=== PATIENT | female | born 1950 | race Caucasian/White ===

== ENCOUNTER 2017-09-21 19:58 | Emergency (ER) | payer MEDICARE, OTHER ==
[2017-09-21] MEDS ORDERED: Sodium Chloride 0.9% 1,000 ML IV ONE (20:14)
--- NOTE | 2017-09-21 20:14 | EDM.PDOC ---
ED HPI GENERAL MEDICAL PROBLEM - General Chief Complaint: Genitourinary Problem Stated Complaint: BOOLD ON URINE Time Seen by Provider: 09/21/17 20:12 - History of Present Illness INITIAL COMMENTS - FREE TEXT/NARRATIVE: HISTORY AND PHYSICAL: History of present illness: Patient is a 67-year-old female with history of bladder cancer who had a cystectomy with neobladder done years ago at [facility] and presents now with lower abdominal pain she's also had some blood clots in her urine and is a new event. She states she recently had influenza. She denies recent nausea vomiting fever chills trauma or other concerns Review of systems: As per history of present illness and below otherwise all systems reviewed and negative. Past medical history: As per history of present illness and as reviewed below otherwise noncontributory. Surgical history: As per history of present illness and as reviewed below otherwise noncontributory. Social history: No reported history of drug or alcohol abuse. Family history: As per history of present illness and as reviewed below otherwise noncontributory. Physical exam: HEENT: Atraumatic, normocephalic, pupils reactive, negative for conjunctival pallor or scleral icterus, mucous membranes moist, throat clear, neck supple, nontender, trachea midline. Lungs: Clear to auscultation, breath sounds equal bilaterally, chest nontender. Heart: S1S2, regular, negative for clicks, rubs, or JVD. Abdomen: Soft, nondistended, nontender. Negative for masses or hepatosplenomegaly. Negative for costovertebral tenderness. Pelvis: Stable nontender. Genitourinary: Deferred. Rectal: Deferred. Extremities: Atraumatic, negative for cords or calf pain. Neurovascular unremarkable. Neuro: Awake, alert, oriented. Cranial nerves II through XII unremarkable. Cerebellum unremarkable. Motor and sensory unremarkable throughout. Exam nonfocal. Diagnostics: CBC CMP UA urine culture CT abdomen and pelvis Therapeutics: Normal saline 1 L bolus Impression: #1 abdominal pain #2 history of bladder cancer with cystectomy Definitive disposition and diagnosis as appropriate pending reevaluation and review of above. hypogastric Pain Score (Numeric/FACES): 7 - Related Data Allergies Allergy/AdvReac Type Severity Reaction Status Date / Time No Known Allergies Allergy Verified 09/21/17 20:19 Home Meds: Home Meds . [No Known Home Meds] 09/21/17 [History] Past Medical History Respiratory History: Reports: Asthma Psychiatric History: Reports: Depression Oncologic (Cancer) History: Reports: Bladder - Past Surgical History Female Surgical History: Reports: Other (See Below) Other Female Surgeries/Procedures: bladder removal, maria eugenia-bladder Oncologic Surgical History: Reports: Other (See Below) Other Oncologic Surgeries/Procedures: bladder removal, maria eugenia bladder Social & Family History - Tobacco Use Smoking Status *Q: Never Smoker Second Hand Smoke Exposure: No - Recreational Drug Use Recreational Drug Use: No ED ROS GENERAL - Review of Systems Review Of Systems: ROS reveals no pertinent complaints other than HPI. ED EXAM, GENERAL - Physical Exam Exam: See Below (The dictation) Course - Vital Signs Last Recorded V/S: Last Vital Signs Temp 36.4 C 09/21/17 22:00 Pulse 83 09/21/17 22:00 Resp 18 09/21/17 22:00 BP 160/90 H 09/21/17 22:00 Pulse Ox 95 09/21/17 22:00 - Orders/Labs/Meds Orders: Active Orders 24 hr Category Date Time Status Abdomen Pelvis wo Cont [CT] Stat Exams 09/21/17 20:13 Taken CULTURE BLOOD [BC] Stat Lab 09/21/17 22:22 Received CULTURE BLOOD [BC] Stat Lab 09/21/17 22:36 Results CULTURE URINE [RM] Stat Lab 09/21/17 21:28 Received Blood Culture x2 Reflex Set [OM.PC] Stat Oth 09/21/17 22:14 Ordered Labs: Laboratory Tests 09/21/17 09/21/17 09/21/17 Range/Units 20:22 20:22 20:22 WBC 10.82 (4.0-11.0) K/uL RBC 3.94 L (4.30-5.90) M/uL Hgb 11.0 L (12.0-16.0) g/dL Hct 34.2 L (36.0-46.0) % MCV 86.8 (80.0-98.0) fL MCH 27.9 (27.0-32.0) pg MCHC 32.2 (31.0-37.0) g/dL RDW Std Deviation 46.4 (28.0-62.0) fl RDW Coeff of Soraida 15 (11.0-15.0) % Plt Count 497 H (150-400) K/uL MPV 9.50 (7.40-12.00) fL Add Manual Diff YES Neutrophils % (Manual) 79 (48.0-80.0) % Band Neutrophils % 4 % Lymphocytes % (Manual) 11 L (16.0-40.0) % Monocytes % (Manual) 6 (0.0-15.0) % Nucleated RBC % 0.0 /100WBC Absolute Seg Neuts 8.5 H (1.4-5.7) Band Neutrophils # 0.4 Lymphocytes # (Manual) 1.2 (0.6-2.4) Monocytes # (Manual) 0.6 (0.0-0.8) Nucleated RBCs # 0 K/uL INR 1.02 Sodium 136 (136-146) mmol/L Potassium 4.9 (3.5-5.1) mmol/L Chloride 109 (98-110) mmol/L Carbon Dioxide 15 L (21-31) mmol/L BUN 61 H (6.0-23.0) mg/dL Creatinine 2.5 H (0.6-1.5) mg/dL Est Cr Clr Drug Dosing TNP Estimated GFR (MDRD) 19.3 ml/min Glucose 114 H (60-110) mg/dL Calcium 8.9 (8.8-10.8) mg/dL Total Bilirubin 0.2 (0.1-1.5) mg/dL AST 10 (5-40) IU/L ALT 23 (8-54) IU/L Alkaline Phosphatase 102 (40-150) Total Protein 7.3 (6.0-8.0) g/dL Albumin 3.9 (3.4-4.8) g/dL Globulin 3.4 (2.0-3.5) g/dL Albumin/Globulin Ratio 1.1 L (1.3-2.8) Urine Color Urine Appearance Urine pH (5.0-8.0) Ur Specific [place] (1.001-1.035) Urine Protein (NEGATIVE) mg/dL Urine Glucose (UA) (NEGATIVE) mg/dL Urine Ketones (NEGATIVE) mg/dL Urine Occult Blood (NEGATIVE) Urine Nitrite (NEGATIVE) Urine Bilirubin (NEGATIVE) Urine Urobilinogen (<2.0) EU/dL Ur Leukocyte Esterase (NEGATIVE) Urine RBC (0-2/HPF) Urine WBC (0-5/HPF) Ur Epithelial Cells (NONE-FEW) Urine Bacteria (NEGATIVE) 09/21/17 Range/Units 21:25 WBC (4.0-11.0) K/uL RBC (4.30-5.90) M/uL Hgb (12.0-16.0) g/dL Hct (36.0-46.0) % MCV (80.0-98.0) fL MCH (27.0-32.0) pg MCHC (31.0-37.0) g/dL RDW Std Deviation (28.0-62.0) fl RDW Coeff of Soraida (11.0-15.0) % Plt Count (150-400) K/uL MPV (7.40-12.00) fL Add Manual Diff Neutrophils % (Manual) (48.0-80.0) % Band Neutrophils % % Lymphocytes % (Manual) (16.0-40.0) % Monocytes % (Manual) (0.0-15.0) % Nucleated RBC % /100WBC Absolute Seg Neuts (1.4-5.7) Band Neutrophils # Lymphocytes # (Manual) (0.6-2.4) Monocytes # (Manual) (0.0-0.8) Nucleated RBCs # K/uL INR Sodium (136-146) mmol/L Potassium (3.5-5.1) mmol/L Chloride (98-110) mmol/L Carbon Dioxide (21-31) mmol/L BUN (6.0-23.0) mg/dL Creatinine (0.6-1.5) mg/dL Est Cr Clr Drug Dosing Estimated GFR (MDRD) ml/min Glucose (60-110) mg/dL Calcium (8.8-10.8) mg/dL Total Bilirubin (0.1-1.5) mg/dL AST (5-40) IU/L ALT (8-54) IU/L Alkaline Phosphatase (40-150) Total Protein (6.0-8.0) g/dL Albumin (3.4-4.8) g/dL Globulin (2.0-3.5) g/dL Albumin/Globulin Ratio (1.3-2.8) Urine Color RED Urine Appearance BLOODY Urine pH 6.5 (5.0-8.0) Ur Specific [place] 1.015 (1.001-1.035) Urine Protein >=300 (NEGATIVE) mg/dL Urine Glucose (UA) NEGATIVE (NEGATIVE) mg/dL Urine Ketones NEGATIVE (NEGATIVE) mg/dL Urine Occult Blood LARGE H (NEGATIVE) Urine Nitrite NEGATIVE (NEGATIVE) Urine Bilirubin NEGATIVE (NEGATIVE) Urine Urobilinogen 0.2 (<2.0) EU/dL Ur Leukocyte Esterase MODERATE (NEGATIVE) Urine RBC TOO NUMBEROUS TO CT H (0-2/HPF) Urine WBC 8-12 (0-5/HPF) Ur Epithelial Cells RARE (NONE-FEW) Urine Bacteria FEW (NEGATIVE) Meds: Medications Discontinued Medications Generic Name Dose Route Start Last Admin Trade Name Freq PRN Reason Stop Dose Admin Hydromorphone HCl 1 mg 09/21/17 22:09 09/21/17 22:19 Dilaudid IM 09/21/17 22:10 1 mg ONETIME ONE Administration Hydromorphone HCl 1 mg 09/21/17 22:54 Dilaudid IVPUSH 09/21/17 22:55 ONETIME ONE Sodium Chloride 1,000 mls @ 999 mls/hr 09/21/17 20:14 09/21/17 21:37 Normal Saline IV 09/21/17 21:14 999 mls/hr STAT ONE Administration Ceftriaxone Sodium/Dextrose 1 50 mls @ 100 mls/hr 09/21/17 22:13 09/21/17 22: 27 gm/ Premix IV 09/21/17 22:42 100 mls/hr ONETIME ONE Administration Ondansetron HCl 4 mg 09/21/17 22:09 09/21/17 22:19 Zofran IVPUSH 09/21/17 22:10 4 mg ONETIME ONE Administration Departure - Departure Time of Disposition: 23:31 Disposition: DC/Tfer to Acute Hospital 02 Condition: Good Clinical Impression: Obstructive uropathy - Discharge Information Referrals: Cruz Lee MD [Primary Care Provider] - Forms: ED Department Discharge - My Orders Last 24 Hours: My Active Orders 09/21/17 20:13 Abdomen Pelvis wo Cont [CT] Stat 09/21/17 21:28 CULTURE URINE [RM] Stat 09/21/17 22:14 Blood Culture x2 Reflex Set [OM.PC] Stat 09/21/17 22:22 CULTURE BLOOD [BC] Stat 09/21/17 22:36 CULTURE BLOOD [BC] Stat - Assessment/Plan Last 24 Hours: My Active Orders 09/21/17 20:13 Abdomen Pelvis wo Cont [CT] Stat 09/21/17 21:28 CULTURE URINE [RM] Stat 09/21/17 22:14 Blood Culture x2 Reflex Set [OM.PC] Stat 09/21/17 22:22 CULTURE BLOOD [BC] Stat 09/21/17 22:36 CULTURE BLOOD [BC] Stat
[2017-09-21 20:52] LABS: CHLORIDE,CL 109 mmol/L (98-110); SODIUM,NA 136 mmol/L (136-146)
[2017-09-21] MEDS ORDERED: Ondansetron 4 MG/2 ML SDV IVPUSH ONE (22:09)
[2017-09-21] MEDS ORDERED: HYDROmorphone 1 MG/ML Syringe IM ONE (22:09)
[2017-09-21] MEDS ORDERED: cefTRIAXone 1 GM in Premix Bag 1 BAG IV ONE (22:13)
[2017-09-21] MEDS ORDERED: HYDROmorphone 2 MG/ML Syringe IVPUSH ONE (22:54)
[2017-09-21] MEDS ORDERED: HYDROmorphone 1 MG/ML Syringe ONE (23:37)
--- NOTE | 2017-09-22 13:58 | CT ---
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 Site : 1950 Study: CT Abdomen/Pelvis [id number]/25/2018 8:55:25 PM Ordering Physician: Arden Oviedo Final Report: INDICATION: Abdominal pain. Diarrhea. Vaginal bleeding at time of scan. TECHNIQUE: CT abdomen and pelvis performed without IV contrast. FINDINGS: Mild scoliosis with degenerative changes in the spine. Small nodular density left lower lobe laterally. Minimal linear atelectasis or scarring in the lungs. Degenerative disc disease L3 and L4 interspaces. Small to moderate-size cysts in the liver. Marked dilatation of both intrarenal collecting systems and renal pelves with mild to marked dilatation of both ureters down to their insertion on a large distended lobulated pelvic and lower abdominal neobladder. Findings could be related to chronic obstruction and/or vesicoureteral reflux or a combination of both etiologies. If this is related to chronic obstruction it is likely related to stenoses at the insertion of the ureters on the neobladder. Minimal stranding about the neobladder which could suggest inflammation. Foci of moderate high density within the lumen of the neobladder inferiorly suggestive of hematoma/hemorrhagic products. Etiology of this is uncertain. Both kidney both kidneys are atrophic and have moderately prominent areas of diffuse cortical thinning and scarring likely related to chronic vesicoureteral reflux, infection, or other insult. The ureters are very tortuous. CT with IV contrast including delayed excretory views could evaluate further for etiology for the presumed hematoma and hemorrhagic products in the neobladder. Tiny nodule posterior to the right hepatic lobe. [place] bladder surgically absent. Surgical clips in the pelvis. Small lymph nodes in the mid and lower pelvis bilaterally nonspecific. Uterus appears absent. Postsurgical changes involving the right pelvic bowel loops. Remainder negative. IMPRESSION: 1. Large prominently distended neobladder which contains foci of ill-defined moderate amounts of high density inferiorly which are likely related to hemorrhagic products. Etiology of the hemorrhagic products uncertain. Mild soft tissue stranding about the neobladder likely related to mild acute inflammation. 2. Marked dilatation of both intrarenal collecting systems and renal pelves and mild to prominent dilatation of both ureters which are tortuous down to the insertion of the ureters on the neobladder. Findings could be related to obstruction due to stenoses at the ureter-neobladder insertion or could be related to vesicoureteral reflux. Combination of both etiologies could be present. 3. Atrophy and moderately prominent scarring and cortical thinning both kidneys consistent with chronic insult as described above. 4. Uterus surgically absent. 5. No CT abnormality identified explain diarrhea. 6. Not mentioned above is a moderate size stone in a contracted gallbladder. Other findings as above. Please note that all CT scans at this facility use dose modulation, iterative reconstruction, and/or weight-based dosing when appropriate to reduce radiation dose to as low as reasonably achievable. Dictated by Manpreet Roper MD @ Sep 21 2017 9:21PM (Electronic Signature) Report Signed by Proxy. BYROND
== END 2017-09-21 23:45 ==
LOC: MW.ED 19:58
DX: N13.9 Obstructive and reflux uropathy, unspecified (principal); Z85.51 Personal history of malignant neoplasm of bladder; Z90.6 Acquired absence of other parts of urinary tract
CPT/HCPCS: 36415; 74176; 80053; 81001; 85025; 85610; 87040; 87086; 96361; 96365; 96375; 99285; J0696; J1170; J2405; J7040; 99283

== ENCOUNTER 2017-09-25 17:36 | Emergency (ER) | payer MEDICARE, OTHER ==
--- NOTE | 2017-09-25 20:05 | EDM.PDOC ---
ED HPI GENERAL MEDICAL PROBLEM - General Chief Complaint: Genitourinary Problem Stated Complaint: UNK Time Seen by Provider: 09/25/17 18:50 Source of Information: Reports: Patient History Limitations: Reports: No Limitations - History of Present Illness INITIAL COMMENTS - FREE TEXT/NARRATIVE: HISTORY AND PHYSICAL: History of present illness: [Patient comes to the ER for hematuria. She has a complicated history including bladder CA w/ cystectomy and neobladder 9 years ago at [facility]. She was flown to [facility] on 09/21 from this ER due to passing blood clots. She was discharged from [facility] 09/23 and had been slowly driving home since then. She had a salas catheter placed, but was DC'd prior to discharge, with instructions given for intermittent catheterization throughout the day, and salas cath at . Patient and her have stopped at various rest stops along the way home to perform intermittent catheterization. She requires her husbands assistance with this as she has difficulty locating her urethra with catheter. This morning she noticed dark blood in her Salas bag, so she stopped at the [facility] and had her Salas catheter flushed and placed for her. ER staff were in contact with Dr. Levi at [facility] who recommended the patient discontinue IC and keep the Salas in until she can follow-up with a local urologist. Since she left the [facility] she is experiencing episodes of chills and low back pain. Dr. Levi recommends that she have a UA and culture, and was instructed to present to ER for this. She has not had fever, but admits to chills today. No chest pain, shortness of breath, difficulty breathing. No abdominal pain, nausea, vomiting. Normal bowel movements. Bright red blood and clots has been in her Salas tubing and bag. Does not take any prescription medications. Has not been on any antibiotics since she was hospitalized at [facility]. ] Review of systems: As per history of present illness and below otherwise all systems reviewed and negative. Past medical history: As per history of present illness and as reviewed below otherwise noncontributory. Surgical history: As per history of present illness and as reviewed below otherwise noncontributory. Social history: No reported history of drug or alcohol abuse. Family history: As per history of present illness and as reviewed below otherwise noncontributory. Physical exam: HEENT: Atraumatic, normocephalic. Lungs: Clear to auscultation, breath sounds equal bilaterally. Heart: S1S2, regular rate and rhythm. Abdomen: Soft, nondistended, nontender. Negative for costovertebral tenderness. Pelvis: Stable nontender. Genitourinary: Deferred. Rectal: Deferred. Extremities: Atraumatic, no cyanosis or edema to feet or lower legs. Neurovascular unremarkable. Neuro: Awake, alert, oriented. Motor and sensory unremarkable throughout. Exam nonfocal. Diagnostics: [UA, urine C&S] Impression: [UTI hematuria] Plan: [UA shows red bloody urine, 250 glucose, + nitrite, large amount of blood, 40 ketones, 0-1 WBC, and large leukocyte esterase. Will start Macrobid twice a day for 10 days. Push fluids. Remain in close contact with [facility]. A copy of this note and all labs should be sent to Dr. Levi at [phone].Urine culture is pending. ] Definitive disposition and diagnosis as appropriate pending reevaluation and review of above. - Related Data Allergies Allergy/AdvReac Type Severity Reaction Status Date / Time No Known Allergies Allergy Verified 09/21/17 20:19 Home Meds: Home Meds . [No Known Home Meds] 09/21/17 [History] Past Medical History Respiratory History: Reports: Asthma Genitourinary History: Reports: Other (See Below) Other Genitourinary History: Hematuria Psychiatric History: Reports: Depression Oncologic (Cancer) History: Reports: Bladder - Infectious Disease History Infectious Disease History: Reports: None - Past Surgical History HEENT Surgical History: Reports: Oral Surgery, Tonsillectomy GI Surgical History: Reports: Appendectomy Female Surgical History: Reports: Other (See Below) Other Female Surgeries/Procedures: bladder removal, maria eugenia-bladder Oncologic Surgical History: Reports: Other (See Below) Other Oncologic Surgeries/Procedures: bladder removal, maria eugenia bladder Social & Family History - Family History Family Medical History: Noncontributory - Tobacco Use Smoking Status *Q: Never Smoker Second Hand Smoke Exposure: No - Recreational Drug Use Recreational Drug Use: No ED ROS GENERAL - Review of Systems Review Of Systems: ROS reveals no pertinent complaints other than HPI. ED EXAM, RENAL/ - Physical Exam Exam: See Below Course - Vital Signs Last Recorded V/S: Last Vital Signs Temp 97.7 F 09/25/17 20:20 Pulse 96 09/25/17 20:20 Resp 18 09/25/17 20:20 BP 132/83 09/25/17 20:20 Pulse Ox 98 09/25/17 20:20 - Orders/Labs/Meds Orders: Active Orders 24 hr Category Date Time Status CULTURE URINE [RM] Stat Lab 09/25/17 19:10 Received Labs: Laboratory Tests 09/25/17 Range/Units 19:10 Urine Color RED Urine Appearance BLOODY Urine pH 7.0 (5.0-8.0) Ur Specific [place] <= 1.005 (1.001-1.035) Urine Protein >=300 (NEGATIVE) mg/dL Urine Glucose (UA) 250 H (NEGATIVE) mg/dL Urine Ketones 40 H (NEGATIVE) mg/dL Urine Occult Blood LARGE H (NEGATIVE) Urine Nitrite POSITIVE H (NEGATIVE) Urine Bilirubin LARGE H (NEGATIVE) Urine Ictotest NEGATIVE Urine Urobilinogen >=8.0 H (<2.0) EU/dL Ur Leukocyte Esterase LARGE (NEGATIVE) Urine RBC TOO NUMEROUS TO CT (0-2/HPF) Urine WBC 0-1 (0-5/HPF) Ur Epithelial Cells RARE (NONE-FEW) Urine Bacteria MODERATE (NEGATIVE) Departure - Departure Time of Disposition: 20:05 Disposition: Home, Self-Care 01 Condition: Good Clinical Impression: UTI, Urinary tract infectious disease - Discharge Information Instructions: Urinary Tract Infection, Adult Referrals: Cruz Lee MD [Primary Care Provider] - Forms: ED Department Discharge Additional Instructions: The following information is given to patients seen in the emergency department who are being discharged to home. This information is to outline your options for follow-up care. We provide all patients seen in our emergency department with a follow-up referral. The need for follow-up, as well as the timing and circumstances, are variable depending upon the specifics of your emergency department visit. If you don't have a primary care physician on staff, we will provide you with a referral. We always advise you to contact your personal physician following an emergency department visit to inform them of the circumstance of the visit and for follow-up with them and/or the need for any referrals to a consulting specialist. The emergency department will also refer you to a specialist when appropriate. This referral assures that you have the opportunity for follow-up care with a specialist. All of these measure are taken in an effort to provide you with optimal care, which includes your follow-up. Under all circumstances we always encourage you to contact your private physician who remains a resource for coordinating your care. When calling for follow-up care, please make the office aware that this follow-up is from your recent emergency room visit. If for any reason you are refused follow-up, please contact the [facility] emergency department at and asked to speak to the emergency department charge nurse. [facility] [address] [place] [id number] Follow-up with your primary care provider at the clinic listed above in 48-[address] Levi of today's findings tomorrow. Take antibiotics as prescribed. Return to ER as needed as discussed. - My Orders Last 24 Hours: My Active Orders 09/25/17 19:10 CULTURE URINE [RM] Stat - Assessment/Plan Last 24 Hours: My Active Orders 09/25/17 19:10 CULTURE URINE [RM] Stat
== END 2017-09-25 20:20 | disposition home or self-care (01) ==
LOC: MW.ED 17:36
DX: N39.0 Urinary tract infection, site not specified (principal)
CPT/HCPCS: 81001; 87086; 99283

== ENCOUNTER 2017-10-05 21:23 | Inpatient (IN) | payer MEDICARE, OTHER ==
--- NOTE | 2017-10-05 21:34 | EDM.PDOC ---
ED HPI GENERAL MEDICAL PROBLEM - General Stated Complaint: CRAMPING Time Seen by Provider: 10/05/17 21:55 - History of Present Illness INITIAL COMMENTS - FREE TEXT/NARRATIVE: HISTORY AND PHYSICAL: History of present illness: The patient is a 67-year-old female who was had a recent complicated history with hematuria and urinary problems. She had bladder cancer with cystectomy and neobladder formation 9 years ago at the [facility] and had presented to this emergency department on September 21 due to hematuria and was found to have some kind of urinary obstruction. She was flown to [facility] and discharged there after 2 days. She says that when she was at the [facility] they did CBI for the hematuria and then when she was discharged she did not have a Fritz catheter. She had had a Fritz placed while she was in the hospital there but it was removed prior to discharge and she was doing intermittent catheterization. On the way home from [facility] they were driving and they stopped at [facility] where they had to have a Fritz replaced because of urinary retention. When she was seen here in the emergency department on a follow-up visit on September 25 when she was also complaining of hematuria and her doctor at the [facility] had instructed her to come in for a UA and urine culture. She has a Fritz in place on that visit . On that visit she had bloody urine which was positive nitrite 0- 1 WBCs and large leukocyte Estrace. Antibiotics were started, Macrobid, and a urine culture was sent which revealed a negative results per my review of the medical record. She followed up in our primary care clinic with Dr. Robles several days ago and had the Fritz removed. She was having some issues with complaints of generalized weakness and feeling rundown and her doctor at the [facility] recommend that she start doing many self catheters and doing bladder irrigation. They had been doing that and they felt that they were irrigating with a certain amount and not getting it all back. They have been in contact with her doctor at the [facility] over the last several days. The symptoms she is having today of generalized weakness malaise started on and they started the bladder irrigation at that time. She has not had a fever but has felt sweaty and she has had intermittent nausea but no vomiting until today in the ED. She feels like her abdomen is bloated. Her doctor at [facility] also thought that she might be constipated and recommend that she take some laxatives which she did and she had multiple stools today which were initially very hard and then more soft. She contacted Dr. peterson and they thought she still might be constipated which is causing her lower abdominal pain radiating to her back. They advised her to come here due to her propensity to bladder infections for evaluation. The patient has not been passing out or blacking out and has no chest pain shortness of breath. Both she and her say that she looks very distended and they are concerned about urinary retention as well as the constipation as the cause of these pains. She describes a lower abdominal pain is cramping and does not localize. Review of systems: As per history of present illness and below otherwise all systems reviewed and negative. Past medical history: As per history of present illness and as reviewed below otherwise noncontributory. Surgical history: As per history of present illness and as reviewed below otherwise noncontributory. Social history: No reported history of drug or alcohol abuse. Family history: As per history of present illness and as reviewed below otherwise noncontributory. Physical exam: General: Well-developed well-nourished female who is nontoxic and vital signs are reviewed by me. She is able to move easily in the ED and has some slight diaphoresis. HEENT: Atraumatic, normocephalic, pupils reactive, negative for conjunctival pallor or scleral icterus, mucous membranes moist, throat clear, neck supple, nontender, trachea midline. Lungs: Clear to auscultation, breath sounds equal bilaterally, chest nontender. Heart: S1S2, regular rhythm slightly tachycardic rate of my evaluation Abdomen: Soft, her entire lower abdomen looks very distended and it is diffusely tender and there are hyperactive bowel sounds . There is no rebound or guarding. Negative for masses or hepatosplenomegaly. Negative for costovertebral tenderness. Pelvis: Stable nontender. Genitourinary: Deferred. Rectal: Deferred. Extremities: Atraumatic, negative for cords or calf pain. Neurovascular unremarkable. Neuro: Awake, alert, oriented. Cranial nerves II through XII unremarkable. Cerebellum unremarkable. Motor and sensory unremarkable throughout. Exam nonfocal. Diagnostics: UA urine culture CBC CMP lactic acid CT scan of the abdomen and pelvis We will place a catheter for urine output Therapeutics: IV, IV fluids, Toradol Zofran NG tube As the nurse was performing duties, the patient had a large volume of emesis 600 mL which was not black or bloody and looked like food products. The patient says she has not had anything to eat since 1 PM which was a sandwich. Patient says that she feels significantly improved after the vomiting. The Fritz has only put out 400 mL of urine. 0040: Case was discussed with Dr. Perry who is aware of this complicated case and agrees to observe with bowel rest and NG tube and the patient and are also comfortable with this care plan. She says she feels much improved after vomiting and the pain meds and now only has some left lower quadrant pain Impression: Small bowel obstruction with complicated surgical history Definitive disposition and diagnosis as appropriate pending reevaluation and review of above. Middle Abdomen Pain Score (Numeric/FACES): 5 - Related Data Allergies Allergy/AdvReac Type Severity Reaction Status Date / Time No Known Allergies Allergy Verified 10/05/17 21:56 Home Meds: Home Meds . [No Known Home Meds] 09/21/17 [History] Past Medical History Respiratory History: Reports: Asthma Genitourinary History: Reports: Other (See Below) Other Genitourinary History: Hematuria Psychiatric History: Reports: Depression Oncologic (Cancer) History: Reports: Bladder - Infectious Disease History Infectious Disease History: Reports: None - Past Surgical History HEENT Surgical History: Reports: Oral Surgery, Tonsillectomy GI Surgical History: Reports: Appendectomy Female Surgical History: Reports: Other (See Below) Other Female Surgeries/Procedures: bladder removal, maria eugenia-bladder Oncologic Surgical History: Reports: Other (See Below) Other Oncologic Surgeries/Procedures: bladder removal, maria eugenia bladder Social & Family History - Family History Family Medical History: Noncontributory - Tobacco Use Smoking Status *Q: Never Smoker Second Hand Smoke Exposure: No - Recreational Drug Use Recreational Drug Use: No ED ROS GENERAL - Review of Systems Review Of Systems: ROS reveals no pertinent complaints other than HPI. ED EXAM, GENERAL - Physical Exam Exam: See Below (See dictation) Course - Vital Signs Last Recorded V/S: Last Vital Signs Temp 36.7 C 10/05/17 21:45 Pulse 69 10/06/17 00:15 Resp 17 10/06/17 00:15 BP 130/61 10/06/17 00:15 Pulse Ox 96 10/06/17 00:15 - Orders/Labs/Meds Orders: Active Orders 24 hr Category Date Time Status Abdomen Pelvis wo Cont [CT] Stat Exams 10/05/17 22:31 Taken CULTURE URINE [RM] Stat Lab 10/05/17 22:50 Received Sodium Chloride 0.9% [Saline Flush] Med 10/05/17 22:06 Active 10 ml FLUSH ASDIRECTED PRN Sodium Chloride 0.9% [Saline Flush] Med 10/05/17 22:06 Active 2.5 ml FLUSH ASDIRECTED PRN Saline Lock Insert [OM.PC] Stat Oth 10/05/17 22:05 Ordered Medication Orders Sodium Chloride (Saline Flush) 10 ml FLUSH ASDIRECTED PRN PRN Reason: Keep Vein Open Last Admin: 10/05/17 22:29 Dose: 10 ml Sodium Chloride (Saline Flush) 2.5 ml FLUSH ASDIRECTED PRN PRN Reason: Keep Vein Open Last Admin: 10/05/17 22:31 Dose: 2.5 ml Labs: Laboratory Tests 10/05/17 10/05/17 10/05/17 Range/Units 22:32 22:32 22:32 WBC 14.10 H (4.0-11.0) K/uL RBC 3.75 L (4.30-5.90) M/uL Hgb 10.4 L (12.0-16.0) g/dL Hct 33.8 L (36.0-46.0) % MCV 90.1 (80.0-98.0) fL MCH 27.7 (27.0-32.0) pg MCHC 30.8 L (31.0-37.0) g/dL RDW Std Deviation 54.7 (28.0-62.0) fl RDW Coeff of Soraida 17 H (11.0-15.0) % Plt Count 739 H (150-400) K/uL MPV 9.80 (7.40-12.00) fL Neut % (Auto) 75.1 (48.0-80.0) % Lymph % (Auto) 15.4 L (16.0-40.0) % [place] % (Auto) 7.9 (0.0-15.0) % Eos % (Auto) 1.4 (0.0-7.0) % Baso % (Auto) 0.2 (0.0-1.5) % Neut # (Auto) 10.6 H (1.4-5.7) K/uL Lymph # (Auto) 2.2 (0.6-2.4) K/uL [place] # (Auto) 1.1 H (0.0-0.8) K/uL Eos # (Auto) 0.2 (0.0-0.7) K/uL Baso # (Auto) 0.0 (0.0-0.1) K/uL Nucleated RBC % 0.0 /100WBC Nucleated RBCs # 0 K/uL Lactate 1.9 (0.20-2.00) mmol/L Sodium 138 (136-145) mmol/L Potassium 4.4 (3.5-5.1) mmol/L Chloride 102 (98-107) mmol/L Carbon Dioxide 21.4 (21.0-32.0) mmol/L BUN 29 H (7.0-18.0) mg/dL Creatinine 1.8 H (0.6-1.0) mg/dL Est Cr Clr Drug Dosing 31.43 mL/min Estimated GFR (MDRD) 28.2 ml/min Glucose 139 H (74-106) mg/dL Calcium 9.1 (8.5-10.1) mg/dL Total Bilirubin 0.2 (0.2-1.0) mg/dL AST 15 (15-37) IU/L ALT 25 (14-63) IU/L Alkaline Phosphatase 96 (46-116) U/L Total Protein 7.8 (6.4-8.2) g/dL Albumin 3.8 (3.4-5.0) g/dL Globulin 4.0 H (2.0-3.5) g/dL Albumin/Globulin Ratio 1.0 L (1.3-2.8) Urine Color Urine Appearance Urine pH (5.0-8.0) Ur Specific [place] (1.001-1.035) Urine Protein (NEGATIVE) mg/dL Urine Glucose (UA) (NEGATIVE) mg/dL Urine Ketones (NEGATIVE) mg/dL Urine Occult Blood (NEGATIVE) Urine Nitrite (NEGATIVE) Urine Bilirubin (NEGATIVE) Urine Urobilinogen (<2.0) EU/dL Ur Leukocyte Esterase (NEGATIVE) Urine RBC (0-2/HPF) Urine WBC (0-5/HPF) Ur Epithelial Cells (NONE-FEW) Urine Bacteria (NEGATIVE) Urine Mucus (NONE-MOD) 10/05/17 Range/Units 22:50 WBC (4.0-11.0) K/uL RBC (4.30-5.90) M/uL Hgb (12.0-16.0) g/dL Hct (36.0-46.0) % MCV (80.0-98.0) fL MCH (27.0-32.0) pg MCHC (31.0-37.0) g/dL RDW Std Deviation (28.0-62.0) fl RDW Coeff of Soraida (11.0-15.0) % Plt Count (150-400) K/uL MPV (7.40-12.00) fL Neut % (Auto) (48.0-80.0) % Lymph % (Auto) (16.0-40.0) % [place] % (Auto) (0.0-15.0) % Eos % (Auto) (0.0-7.0) % Baso % (Auto) (0.0-1.5) % Neut # (Auto) (1.4-5.7) K/uL Lymph # (Auto) (0.6-2.4) K/uL [place] # (Auto) (0.0-0.8) K/uL Eos # (Auto) (0.0-0.7) K/uL Baso # (Auto) (0.0-0.1) K/uL Nucleated RBC % /100WBC Nucleated RBCs # K/uL Lactate (0.20-2.00) mmol/L Sodium (136-145) mmol/L Potassium (3.5-5.1) mmol/L Chloride (98-107) mmol/L Carbon Dioxide (21.0-32.0) mmol/L BUN (7.0-18.0) mg/dL Creatinine (0.6-1.0) mg/dL Est Cr Clr Drug Dosing mL/min Estimated GFR (MDRD) ml/min Glucose (74-106) mg/dL Calcium (8.5-10.1) mg/dL Total Bilirubin (0.2-1.0) mg/dL AST (15-37) IU/L ALT (14-63) IU/L Alkaline Phosphatase (46-116) U/L Total Protein (6.4-8.2) g/dL Albumin (3.4-5.0) g/dL Globulin (2.0-3.5) g/dL Albumin/Globulin Ratio (1.3-2.8) Urine Color YELLOW Urine Appearance CLEAR Urine pH 7.0 (5.0-8.0) Ur Specific [place] 1.010 (1.001-1.035) Urine Protein NEGATIVE (NEGATIVE) mg/dL Urine Glucose (UA) NEGATIVE (NEGATIVE) mg/dL Urine Ketones NEGATIVE (NEGATIVE) mg/dL Urine Occult Blood SMALL H (NEGATIVE) Urine Nitrite NEGATIVE (NEGATIVE) Urine Bilirubin NEGATIVE (NEGATIVE) Urine Urobilinogen 0.2 (<2.0) EU/dL Ur Leukocyte Esterase SMALL (NEGATIVE) Urine RBC 2-4 (0-2/HPF) Urine WBC 4-12 (0-5/HPF) Ur Epithelial Cells OCCASIONAL (NONE-FEW) Urine Bacteria FEW (NEGATIVE) Urine Mucus RARE (NONE-MOD) Meds: Medications Generic Name Dose Route Start Last Admin Trade Name Freq PRN Reason Stop Dose Admin Sodium Chloride 10 ml 10/05/17 22:06 10/05/17 22:29 Saline Flush FLUSH 10 ml ASDIRECTED PRN Administration Keep Vein Open Sodium Chloride 2.5 ml 10/05/17 22:06 10/05/17 22:31 Saline Flush FLUSH 2.5 ml ASDIRECTED PRN Administration Keep Vein Open Discontinued Medications Generic Name Dose Route Start Last Admin Trade Name Freq PRN Reason Stop Dose Admin Sodium Chloride 1,000 mls @ 999 mls/hr 10/05/17 22:27 10/05/17 22:28 Normal Saline IV 10/05/17 23:27 999 mls/hr STAT ONE Administration Ketorolac Tromethamine 30 mg 10/05/17 22:06 10/05/17 22:28 Toradol IVPUSH 10/05/17 22:07 30 mg ONETIME ONE Administration Ondansetron HCl 4 mg 10/05/17 22:26 10/05/17 22:31 Zofran IVPUSH 10/05/17 22:27 4 mg ONETIME ONE Administration Departure - Departure Time of Disposition: 00:49 Disposition: Refer to Observation Condition: Good Clinical Impression: Small bowel obstruction - Discharge Information Referrals: PCP,Unknown [Primary Care Provider] - - My Orders Last 24 Hours: My Active Orders 10/05/17 22:05 Saline Lock Insert [OM.PC] Stat 10/05/17 22:06 Sodium Chloride 0.9% [Saline Flush] 10 ml FLUSH ASDIRECTED PRN Sodium Chloride 0.9% [Saline Flush] 2.5 ml FLUSH ASDIRECTED PRN 10/05/17 22:31 Abdomen Pelvis wo Cont [CT] Stat 10/05/17 22:50 CULTURE URINE [RM] Stat - Assessment/Plan Last 24 Hours: My Active Orders 10/05/17 22:05 Saline Lock Insert [OM.PC] Stat 10/05/17 22:06 Sodium Chloride 0.9% [Saline Flush] 10 ml FLUSH ASDIRECTED PRN Sodium Chloride 0.9% [Saline Flush] 2.5 ml FLUSH ASDIRECTED PRN 10/05/17 22:31 Abdomen Pelvis wo Cont [CT] Stat 10/05/17 22:50 CULTURE URINE [RM] Stat
[2017-10-05] MEDS ORDERED: Sodium Chloride 0.9% 2.5 ML Syringe FLUSH PRN (22:06)
[2017-10-05] MEDS ORDERED: Ketorolac 30 MG/ML SDV IVPUSH ONE (22:06)
[2017-10-05] MEDS ORDERED: Sodium Chloride 0.9% 10 ML Syringe FLUSH PRN (22:06)
[2017-10-05] MEDS ORDERED: Ondansetron 4 MG/2 ML SDV IVPUSH ONE (22:26)
[2017-10-05] MEDS ORDERED: Sodium Chloride 0.9% 1,000 ML IV ONE (22:27)
[2017-10-06] MEDS ORDERED: Dextrose 5%-0.45% NaCl 1,000 ML IV SCH (01:00)
[2017-10-06] MEDS ORDERED: Benzocaine 20% Topical Spray UD MUCMEM ONE (01:09)
[2017-10-06] MEDS ORDERED: Ondansetron 4 MG/2 ML SDV IVPUSH PRN (02:48)
[2017-10-06] MEDS: Piperacillin/Tazobactam 3.375 GM in Sodium Chloride 0.9% 50 ML IV SCH ×4 (03:17→21:13)
[2017-10-06] MEDS: NS + KCl 20mEq/L 1,000 ML IV SCH ×2 (03:18→11:57)
[2017-10-06] MEDS: Morphine 4 MG/ML Syringe IVPUSH PRN ×3 (05:41→16:00)
--- NOTE | 2017-10-06 09:25 | PCM.SN ---
- Free Text/Narrative Note: pt seen, chart reviewed; cx dictated, [id number]; agree ngt decompression, but has to check position and make it work, only saliva coming out, need readjust position, and recheck position ; protonix, and npo, serial abd exam and kub in tomorrow morning; will follow pt w you; keep potassium above 4 to avoid chemical ileus
--- NOTE | 2017-10-06 10:41 | PCM.HP ---
H&P History of Present Illness - General Date of Service: 10/06/17 Admit Problem/Dx: Small bowel obstruction. Source of Information: Patient History Limitations: Reports: No Limitations - History of Present Illness Initial Comments - Free Text/Narative: This 67 year old female with pmh of cystectomy with subsequent neopbladder completed in [facility] 2008 presented to the ED with concerns of worsening abdominal pain and distension. She was transferred to [facility] due to hematuria and clotting. She was found to have UTI and treated with macrobid. She reports she has not felt right since driving back from [place]. She has been in constant contact with Dr Ortez at [facility] and they suggested she be seen due to worsening pain. She was instructed to take laxatives due to concerns of constipation. She reports she took some yesterday and has intially very small hard bowel movements then they became loose. She ate around 1 pm, but felt very bloated and distended with pain throughout her abdomen. Nothing made the pain better or worse per se. She reports no black or bloody BMs. She did have 1 large emesis of food particles while in the ED with relief of some abdominal pain. She denies fevers at home. A salas remains in from ED, no recent blood or clots noted. In the ED leukocytosis at 14,000, hgb 10.4, BUN 29, Cr 1.8, UA showed sm leukocyte esterase and WBC 4-12. K+ 4.4. CT of abdomen/pelvis revealed small bowel obstruction with transition point within the lower abdomen, likely secondary to adhesions. NG tube was placed to suction. SHe was admitted inpatient for small bowel obstruction. Middle Abdomen Pain Score (Numeric/FACES): 2 - Related Data Allergies/Adverse Reactions: Allergies Allergy/AdvReac Type Severity Reaction Status Date / Time No Known Allergies Allergy Verified 10/05/17 21:56 Home Medications: Home Meds . [No Known Home Meds] 09/21/17 [History] Past Medical History Cardiovascular History: Denies: Afib, Blood Clots/VTE/DVT, Hypertension, AR Respiratory History: Reports: Asthma Gastrointestinal History: Reports: Bowel Obstruction. Denies: GERD Genitourinary History: Reports: UTI, Recurrent, Other (See Below) Other Genitourinary History: Hematuria Neurological History: Reports: None Psychiatric History: Reports: Depression Endocrine/Metabolic History: Denies: Diabetes, Type II, Obesity/BMI 30+ Oncologic (Cancer) History: Reports: Bladder - Infectious Disease History Infectious Disease History: Reports: Chicken Pox, Measles, Mumps - Past Surgical History HEENT Surgical History: Reports: Oral Surgery, Tonsillectomy GI Surgical History: Reports: Appendectomy Female Surgical History: Reports: Other (See Below) Other Female Surgeries/Procedures: bladder removal, maria eugenia-bladder Musculoskeletal Surgical History: Reports: Other (See Below) Other Musculoskeletal Surgeries/Procedures:: 3 discs in neck ruptured; repaired Oncologic Surgical History: Reports: Other (See Below) Other Oncologic Surgeries/Procedures: bladder removal, maria eugenia bladder Social & Family History - Family History Family Medical History: Noncontributory - Tobacco Use Smoking Status *Q: Never Smoker Second Hand Smoke Exposure: No - Caffeine Use Caffeine Use: Reports: Coffee - Recreational Drug Use Recreational Drug Use: No - Living Situation & Occupation Living situation: Reports: H&P Review of Systems - Review of Systems: Review Of Systems: See Below General: Reports: Malaise, Fatigue, Decreased Appetite. Denies: Fever, Chills HEENT: Reports: No Symptoms. Denies: Headaches, Sinus Congestion, Sore Throat, Vertigo Pulmonary: Reports: No Symptoms. Denies: Shortness of Breath, Cough, Sputum Cardiovascular: Reports: No Symptoms. Denies: Chest Pain, Edema Gastrointestinal: Reports: Abdominal Pain, Constipation, Distension, Flatus, Nausea, Vomiting. Denies: Black Stool, Bloody Stool, Hematemesis, Melena Genitourinary: Reports: No Symptoms. Denies: Hematuria Musculoskeletal: Reports: No Symptoms Psychiatric: Reports: No Symptoms Neurological: Reports: No Symptoms Hematologic/Lymphatic: Reports: No Symptoms Immunologic: Reports: No Symptoms Exam - Exam Exam: See Below - Vital Signs Vital Signs: Last Vital Signs Temp 98.2 F 10/06/17 08:00 Pulse 68 10/06/17 08:00 Resp 18 10/06/17 08:00 BP 143/77 H 10/06/17 08:00 Pulse Ox 98 10/06/17 08:00 Weight: 90.809 kg - Exam Quality Assessment: DVT Prophylaxis General: Alert, Oriented, Cooperative HEENT: Conjunctiva Clear, Posterior Pharynx Clear Neck: Supple, Trachea Midline, 2 Lungs: Clear to Auscultation, Normal Respiratory Effort Cardiovascular: Regular Rate, Regular Rhythm GI/Abdominal Exam: Soft, No Organomegaly, No Distention, No Abnormal Bruit, No Mass, Pelvis Stable, Distended, Tender (diffusely), Abnormal Bowel Sounds ( hypoactive, tympanic to LLQ). No: Rigid, Rebound Extremities: Normal Inspection, Normal Range of Motion, Non-Tender, No Pedal Edema, Normal Capillary Refill Skin: Warm, Dry, Intact Neuro Extensive - Mental Status: Alert, Oriented x3, Normal Mood/Affect, Normal Cognition Neuro Extensive - Motor, Sensory, Reflexes: CN II-XII Intact, Normal Gait Psychiatric: Alert, Normal Affect, Normal Mood - Patient Data Lab Results Last 24 hrs: Laboratory Results - last 24 hr 10/06/17 10/06/17 Range/Units 05:20 05:20 WBC 7.76 (4.0-11.0) K/uL RBC 2.94 L (4.30-5.90) M/uL Hgb 8.1 L (12.0-16.0) g/dL Hct 26.6 L (36.0-46.0) % MCV 90.5 (80.0-98.0) fL MCH 27.6 (27.0-32.0) pg MCHC 30.5 L (31.0-37.0) g/dL RDW Std Deviation 54.2 (28.0-62.0) fl RDW Coeff of Soraida 17 H (11.0-15.0) % Plt Count 449 H (150-400) K/uL MPV 9.30 (7.40-12.00) fL Neut % (Auto) 78.4 (48.0-80.0) % Lymph % (Auto) 11.0 L (16.0-40.0) % [place] % (Auto) 7.7 (0.0-15.0) % Eos % (Auto) 2.8 (0.0-7.0) % Baso % (Auto) 0.1 (0.0-1.5) % Neut # (Auto) 6.1 H (1.4-5.7) K/uL Lymph # (Auto) 0.9 (0.6-2.4) K/uL [place] # (Auto) 0.6 (0.0-0.8) K/uL Eos # (Auto) 0.2 (0.0-0.7) K/uL Baso # (Auto) 0.0 (0.0-0.1) K/uL Nucleated RBC % 0.0 /100WBC Nucleated RBCs # 0 K/uL Sodium 140 (136-145) mmol/L Potassium 4.7 (3.5-5.1) mmol/L Chloride 108 H (98-107) mmol/L Carbon Dioxide 22.0 (21.0-32.0) mmol/L BUN 29 H (7.0-18.0) mg/dL Creatinine 1.6 H (0.6-1.0) mg/dL Est Cr Clr Drug Dosing 35.36 mL/min Estimated GFR (MDRD) 32.3 ml/min Glucose 87 (74-106) mg/dL Calcium 7.8 L (8.5-10.1) mg/dL Total Bilirubin 0.3 (0.2-1.0) mg/dL AST 12 L (15-37) IU/L ALT 19 (14-63) IU/L Alkaline Phosphatase 65 (46-116) U/L Total Protein 5.6 L (6.4-8.2) g/dL Albumin 2.6 L (3.4-5.0) g/dL Globulin 3.0 (2.0-3.5) g/dL Albumin/Globulin Ratio 0.9 L (1.3-2.8) Result Diagrams: 10/06/17 05:20 10/06/17 05:20 *Q Meaningful Use (ADM) - VTE *Q VTE Criteria *Q: - Stroke *Q Stroke Criteria *Q: - AMI *Q AMI Criteria *Q: - Problem List (1) Small bowel obstruction SNOMED Code(s): 035160701 ICD Code: K56.609 - UNSP INTESTNL OBST, UNSP TO PARTIAL VERSUS COMPLETE OBST Status: Acute Current Visit: Yes (2) UTI, Urinary tract infectious disease SNOMED Code(s): 72900690 ICD Code: N39.0 - URINARY TRACT INFECTION, SITE NOT SPECIFIED Status: Acute Current Visit: No (3) Hx of bladder cancer SNOMED Code(s): 098009791 ICD Code: Z85.51 - PERSONAL HISTORY OF MALIGNANT NEOPLASM OF BLADDER Status : Chronic Current Visit: Yes (4) Hx of total cystectomy SNOMED Code(s): 037510734 ICD Code: Z98.890 - OTHER SPECIFIED POSTPROCEDURAL STATES Status: Chronic Current Visit: Yes Problem List Initiated/Reviewed/Updated: Yes Orders Last 24hrs: Active Orders 24 hr Category Date Time Status Communication Order [RC] DAILY Care 10/06/17 02:47 Active NG [Gastrointestinal Tube Mgmt] [RC] ASDIRECTED Care 10/06/17 08:20 Active Notify Provider Consults [RC] ASDIRECTED Care 10/06/17 08:30 Active Consult to Physician [CONS] Routine Cons 10/06/17 08:29 Active NPO [Nothing Per Oral Diet] [DIET] Diet 10/06/17 Breakfast Active Morphine Med 10/06/17 02:50 Active 4 mg IVPUSH Q4H PRN NS + KCl 20mEq/L [Normal Saline with 20 mEq KCl] 1,000 Med 10/06/17 03:00 Active ml IV ASDIRECTED Ondansetron [Zofran] Med 10/06/17 02:48 Active 4 mg IVPUSH Q4H PRN Piperacillin/Tazobactam [Piperacil-Tazobact] 3.375 gm Med 10/06/17 03:00 Active Sodium Chloride 0.9% [Normal Saline] 50 ml IV Q6H Medication Orders Piperacillin Sod/Tazobactam (Sod 3.375 gm/ Sodium Chloride) 50 mls @ 100 mls/ hr IV Q6H GABI Last Admin: 10/06/17 08:48 Dose: 100 mls/hr Infusion: 10/06/17 03:47 Dose: 100 mls/hr Admin: 10/06/17 03:17 Dose: 100 mls/hr Potassium Chloride/Sodium Chloride (Normal Saline With 20 Meq Kcl) 1,000 mls @ 125 mls/hr IV ASDIRECTED GABI Last Admin: 10/06/17 03:18 Dose: 125 mls/hr Morphine Sulfate (Morphine) 4 mg IVPUSH Q4H PRN PRN Reason: Pain Last Admin: 10/06/17 10:18 Dose: 4 mg Admin: 10/06/17 05:41 Dose: 4 mg Ondansetron HCl (Zofran) 4 mg IVPUSH Q4H PRN PRN Reason: Nausea/Vomiting Sodium Chloride (Saline Flush) 10 ml FLUSH ASDIRECTED PRN PRN Reason: Keep Vein Open Last Admin: 10/05/17 22:29 Dose: 10 ml Sodium Chloride (Saline Flush) 2.5 ml FLUSH ASDIRECTED PRN PRN Reason: Keep Vein Open Last Admin: 10/05/17 22:31 Dose: 2.5 ml Assessment/Plan Comment:: This 67 year old female with pmh of bladder ca with susequent cystectomy then maria eugenia-bladder in 2008, admitted with small bowel obstruction and suspected UTI. 1. Small bowel obstruction: Transition point noted in lower abdomen on CT, will consult Dr. Nelsno, general surgery. Will continue with bowel rest, NPO except ice chips. NG to LIWS, nothing but put out since admission Keep potassium above 4.0 , currently 4.7, will stop IVFs with KCL for now. continue with NS 125 and recheck K+ in am, supplement as needed. Continue with Morphine for pain and ZOfran for nausea PRN. We discussed conservative therapy for now. Hgb 8.1 this am, like dilutional, will continue to monitor daily. Leukocytosis improved. 2. Suspected UTI: Pyuria noted, Zosyn started last night, will continue. UC pending. No fevers VTE prophylaxis: Will hold off on pharmacologic therapy due to recent gross hematuria. SCDs and ambulation.
[2017-10-06] MEDS ORDERED: Phenol 1.4% Oral Spray 177 ML Bottle MUCMEM PRN (12:31)
--- NOTE | 2017-10-06 12:54 | CR ---
EXAMINATION: Abdomen HISTORY: NG placement COMPARISON: 10/05/2017 TECHNIQUE: Single view FINDINGS: There is an NG tube noted with tip at the gastroesophageal junction. This could be an advan madelaine at least 6 cm to include the side-port. There is a nonobstructive bowel gas pattern with air and stool within the colon. Clips project over the pelvis. No organomegaly or abnormal calcifications. IMPRESSION: 1. NG tube noted with tip at the gastroesophageal junction. This could be advanced at least 6 cm to i nclude the side-port.
[2017-10-06] MEDS: Sodium Chloride 0.9% 1,000 ML IV SCH ×2 (13:04→21:11)
--- NOTE | 2017-10-06 13:36 | CONS ---
DATE OF CONSULTATION: 10/06/2017 DATE OF : 1950 PRIMARY CARE PHYSICIAN: Unknown PCP Consult was called. The patient is seen shortly after. Concerning question is possible bowel obstruction. HISTORY OF PRESENT ILLNESS: The patient is a 67-year-old lady with a very complicated medical history. The patient had surgery 9 years ago for bladder cancer. That is the way the patient put it. She wanted to have fertility and after some treatment, they thought she was and in fact she had tumor in the bladder, and 9 years ago she had bladder removed and neobladder construction at [facility]. Postop, she seemed to have an episode of bowel obstruction, but was resolved without having surgery. Then in the last 1 month, she had hematuria from her bladder, has been back to [place] for treatment and then she came back, and now also has some problem with Fritz placement and replaced, and about 10 days ago she started feeling weak and the same feeling of a bowel obstruction about 10 days ago. She sought help 4 days ago from her medical doctor, Dr. Robles, and they put her on MiraLAX and she thinks she did not get better and she sought help in the emergency room yesterday and was admitted to medical service for further management. Admission workup included a CAT scan that shows possible bowel obstruction with a transition point. This morning, surgery was consulted for management. Currently, she denied any pain whatsoever. No abdominal pain and she is not nauseated. She just passed gas a few minutes ago, and yesterday she had a well-formed stool. I do not understand that, but that is what reported from the patient, BM from 6:00 in the morning until 2 o'clock continuously that is the word she used. Well-formed stool and hard, and then by 2 o'clock it was soft, and again currently she denied nausea or vomiting, and she is passing gas. She had an NG tube and NG tube output is minimal and is totally saliva, and the patient also complained that the NG tube is stuck in her throat or little bit lower, and again there is no green or yellow stuck in the container of the NG tube. PAST MEDICAL HISTORY: Significant for no diabetes, MS, CVA, or hypertension. History of bladder cancer, status post neobladder construction. SURGICAL HISTORY: As mentioned above. ALLERGIES: Please refer to nursing note for details. MEDICATION: Please refer to nursing note for details. SOCIAL HISTORY: Noncontributory. FAMILY HISTORY: Noncontributory. PHYSICAL EXAMINATION: VITAL SIGNS: Afebrile. A little bit hypertensive at 153/65 on room air. GENERAL: A very pleasant lady in no acute distress, smiled to the doctor, and chatting all other kind of things, absolutely in no pain and no nausea. HEENT: Normocephalic, atraumatic. Sclerae anicteric. LUNGS: Clear to auscultation. HEART: Regular rate and rhythm. ABDOMEN: Soft, nondistended. No pulsating. Tender midline abdominal structure. One paramedian incision, one midline incision, one Pfannenstiel incision. None of them has hernia and gushing bowel sounds in all 4 quadrants, nontender. LABORATORY DATA: On consultation; white count 7.76, H and H is 8 and 26.6, platelet is 449. BUN 29, creatinine 1.6, alkaline phosphatase is 65. Troponin is negative. Albumin is 2.6. Urine has some RBC, some white BC, and some bacteria. IMPRESSION: Abdominal pain and feels weakness and seeked medical management. Currently has no pain. White count has dropped from 14 to 7.76; H and H also dropped significantly, it dropped 2 g; platelet is all right. BUN and creatinine are at baseline. Albumin also dropped. Hematuria looked like it is resolved. Agree with NG tube decompression and the NG does not seem to be in the right place. We advanced the NG tube at least one palm distance and then checked position with a KUB and conservative management Protonix and n.p.o., with repeat KUB in the tomorrow morning and serial abdominal exam, will follow the patient with you. Ileus versus bowel obstruction. As always, thank you for the kind referral. LEONIE / ANGEL /[id number] TRUONG
--- NOTE | 2017-10-06 16:56 | CT ---
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 Site : 1950 Study: CT Abdomen/Pelvis [id number] 11:59:23 PM Ordering Physician: Migdalia Valentine Final Report: INDICATION: abd pain, cramping TECHNIQUE: CT abdomen and pelvis without contrast. COMPARISON: None FINDINGS: Lower chest: Unremarkable. Liver: Stable multiple hepatic cysts. . Spleen: Unremarkable. Pancreas: Unremarkable. Gallbladder and bile ducts: Cholelithiasis. Kidneys: Bilateral cortical thinning and scarring. No kidney or ureteral stones and no hydronephrosis. Adrenal glands: Unremarkable. GI tract: Multiple dilated fluid-filled loops of small bowel with the transition point suspected within the lower abdomen. Partial colectomy changes. Ileal conduit which is decompressed. Vascular structures: Atherosclerotic disease. . Lymph nodes: Unremarkable. Miscellaneous: Fritz catheter in place. No free air or significant free fluid. Pelvic Organs: Hysterectomy. Bones: Degenerative changes. IMPRESSION: 1. Small bowel obstruction with a transition point is likely within the lower abdomen. Findings are likely secondary to adhesions. 2. Cholelithiasis. Dictated by Ivan Maloney MD @ 10/06/2017 12:20:52 AM Dictated by: Ivan Maloney MD @ 10/06/2017 00:21:11 (Electronic Signature) Report Signed by Proxy. [facility]
[2017-10-06] MEDS: Morphine 2 MG/ML Syringe IVPUSH PRN (22:51)
[2017-10-07] MEDS: Piperacillin/Tazobactam 3.375 GM in Sodium Chloride 0.9% 50 ML IV SCH ×2 (03:29→08:42)
[2017-10-07] MEDS: Morphine 2 MG/ML Syringe IVPUSH PRN (06:45)
[2017-10-07] MEDS: Sodium Chloride 0.9% 1,000 ML IV SCH (06:47)
--- NOTE | 2017-10-07 09:14 | PCM.PN ---
- General Info Date of Service: 10/07/17 Admission Dx/Problem (Free Text): Small bowel obstruction. Subjective Update: Feeling much better today, abdominal pain has improved. She is passing gas, no BM. No nausea. Very little out in NG. No chest pain or SOB. Nursing staff in room, irrigating salas. She reports this happens as home even, she needs to irrigate and straight cath often due to mucus. She did have some blood clots last night, but this morning only mucous. Functional Status: Reports: Pain Controlled, Ambulating - Review of Systems Pulmonary: Reports: No Symptoms. Denies: Shortness of Breath Cardiovascular: Reports: No Symptoms. Denies: Chest Pain Gastrointestinal: Reports: Abdominal Pain (much improved.very eager for NG tube to be removed. ), Flatus. Denies: Nausea, Vomiting Genitourinary: Reports: Retention (salas irrigated overnight due to mucous plug. ). Denies: Dysuria, Frequency Musculoskeletal: Reports: No Symptoms. Denies: Neck Pain Skin: Reports: No Symptoms Neurological: Reports: No Symptoms Psychiatric: Reports: No Symptoms - Patient Data Vitals - Most Recent: Last Vital Signs Temp 98.2 F 10/07/17 08:00 Pulse 70 10/07/17 08:00 Resp 16 10/07/17 08:00 BP 159/58 H 10/07/17 08:00 Pulse Ox 96 10/07/17 08:00 Weight - Most Recent: 90.809 kg I&O - Last 24 Hours: Intake & Output 10/06/17 10/07/17 10/07/17 22:59 06:59 14:59 Intake Total 657 1712 Output Total 160 1575 Balance 7 137 Lab Results Last 24 Hours: Laboratory Results - last 24 hr 10/07/17 10/07/17 Range/Units 05:06 05:06 WBC 4.25 (4.0-11.0) K/uL RBC 2.76 L (4.30-5.90) M/uL Hgb 7.7 L (12.0-16.0) g/dL Hct 25.5 L (36.0-46.0) % MCV 92.4 (80.0-98.0) fL MCH 27.9 (27.0-32.0) pg MCHC 30.2 L (31.0-37.0) g/dL RDW Std Deviation 56.7 (28.0-62.0) fl RDW Coeff of Soraida 17 H (11.0-15.0) % Plt Count 394 (150-400) K/uL MPV 9.20 (7.40-12.00) fL Neut % (Auto) 56.7 (48.0-80.0) % Lymph % (Auto) 27.3 (16.0-40.0) % [place] % (Auto) 9.4 (0.0-15.0) % Eos % (Auto) 6.4 (0.0-7.0) % Baso % (Auto) 0.2 (0.0-1.5) % Neut # (Auto) 2.4 (1.4-5.7) K/uL Lymph # (Auto) 1.2 (0.6-2.4) K/uL [place] # (Auto) 0.4 (0.0-0.8) K/uL Eos # (Auto) 0.3 (0.0-0.7) K/uL Baso # (Auto) 0.0 (0.0-0.1) K/uL Nucleated RBC % 0.0 /100WBC Nucleated RBCs # 0 K/uL Sodium 144 (136-145) mmol/L Potassium 4.3 (3.5-5.1) mmol/L Chloride 113 H (98-107) mmol/L Carbon Dioxide 23.2 (21.0-32.0) mmol/L BUN 22 H (7.0-18.0) mg/dL Creatinine 1.7 H (0.6-1.0) mg/dL Est Cr Clr Drug Dosing 33.28 mL/min Estimated GFR (MDRD) 30.2 ml/min Glucose 72 L (74-106) mg/dL Calcium 8.0 L (8.5-10.1) mg/dL Med Orders - Current: Current Medications Piperacillin Sod/Tazobactam (Sod 3.375 gm/ Sodium Chloride) 50 mls @ 100 mls/ hr IV Q6H [facility] Last Admin: 10/07/17 08:42 Dose: 100 mls/hr Sodium Chloride (Normal Saline) 1,000 mls @ 125 mls/hr IV ASDIRECTED [facility] Last Admin: 10/07/17 06:47 Dose: 125 mls/hr Morphine Sulfate (Morphine) 2 mg IVPUSH Q4H PRN PRN Reason: severe pain Last Admin: 10/07/17 06:45 Dose: 2 mg Ondansetron HCl (Zofran) 4 mg IVPUSH Q4H PRN PRN Reason: Nausea/Vomiting Phenol/Menthol (Chloraseptic Throat [place]) 1 ml MUCMEM Q2H PRN PRN Reason: sore throat, NG tube irritatio Last Admin: 10/06/17 12:59 Dose: 1 spray Sodium Chloride (Saline Flush) 10 ml FLUSH ASDIRECTED PRN PRN Reason: Keep Vein Open Last Admin: 10/05/17 22:29 Dose: 10 ml Sodium Chloride (Saline Flush) 2.5 ml FLUSH ASDIRECTED PRN PRN Reason: Keep Vein Open Last Admin: 10/05/17 22:31 Dose: 2.5 ml Discontinued Medications Benzocaine (Hurricaine One 20%) 1 each MUCMEM ONETIME ONE Stop: 10/06/17 01:10 Last Admin: 10/06/17 01:17 Dose: 1 each Sodium Chloride (Normal Saline) 1,000 mls @ 999 mls/hr IV STAT ONE Stop: 10/05/17 23:27 Last Admin: 10/05/17 22:28 Dose: 999 mls/hr Dextrose/Sodium Chloride (Dextrose 5%-1/2 Ns) 1,000 mls @ 150 mls/hr IV ASDIRECTED [facility] Last Admin: 10/06/17 01:16 Dose: 150 mls/hr Potassium Chloride/Sodium Chloride (Normal Saline With 20 Meq Kcl) 1,000 mls @ 125 mls/hr IV ASDIRECTED [facility] Last Admin: 10/06/17 11:57 Dose: 125 mls/hr Ketorolac Tromethamine (Toradol) 30 mg IVPUSH ONETIME ONE Stop: 10/05/17 22:07 Last Admin: 10/05/17 22:28 Dose: 30 mg Morphine Sulfate (Morphine) 4 mg IVPUSH Q4H PRN PRN Reason: Pain Last Admin: 10/06/17 16:00 Dose: 4 mg Ondansetron HCl (Zofran) 4 mg IVPUSH ONETIME ONE Stop: 10/05/17 22:27 Last Admin: 10/05/17 22:31 Dose: 4 mg - Exam General: Alert, Oriented, Cooperative, No Acute Distress Neck: Supple Lungs: Clear to Auscultation, Normal Respiratory Effort Cardiovascular: Regular Rate, Regular Rhythm GI/Abdominal Exam: Normal Bowel Sounds, Soft, Tender (scant tenderness to lower abdomen, but currently having salas irrigated.). No: Distended Extremities: Normal Inspection, Normal Range of Motion, Non-Tender, No Pedal Edema, Normal Capillary Refill Neurological: No New Focal Deficit Psy/Mental Status: Alert, Normal Affect, Normal Mood - Problem List & Annotations (1) Small bowel obstruction SNOMED Code(s): 788103145 Code(s): K56.609 - UNSP INTESTNL OBST, UNSP TO PARTIAL VERSUS COMPLETE OBST Status: Acute Current Visit: Yes (2) UTI, Urinary tract infectious disease SNOMED Code(s): 50795063 Code(s): N39.0 - URINARY TRACT INFECTION, SITE NOT SPECIFIED Status: Acute Current Visit: No (3) Hx of bladder cancer SNOMED Code(s): 472515821 Code(s): Z85.51 - PERSONAL HISTORY OF MALIGNANT NEOPLASM OF BLADDER Status : Chronic Current Visit: Yes (4) Hx of total cystectomy SNOMED Code(s): 356601448 Code(s): Z98.890 - OTHER SPECIFIED POSTPROCEDURAL STATES Status: Chronic Current Visit: Yes - Problem List Review Problem List Initiated/Reviewed/Updated: Yes - My Orders Last 24 Hours: My Active Orders 10/06/17 08:20 NG [Gastrointestinal Tube Mgmt] [RC] ASDIRECTED 10/06/17 08:29 Consult to Physician [CONS] Routine 10/06/17 08:30 Notify Provider Consults [RC] ASDIRECTED 10/06/17 12:30 Sodium Chloride 0.9% [Normal Saline] 1,000 ml IV ASDIRECTED 10/06/17 12:31 Phenol [Chloraseptic Throat [place]] 1 ml MUCMEM Q2H PRN Resuscitation Status Routine 10/06/17 12:32 Antiembolic Devices [RC] PER UNIT ROUTINE Intake and Output [RC] Q12H Oxygen Therapy [RC] PRN Up With Assistance [RC] ASDIRECTED VTE/DVT Education [RC] PER UNIT ROUTINE Vital Signs [RC] Q4H Sequential Compression Device [OM.PC] Per Unit Routine 10/06/17 17:09 Morphine 2 mg IVPUSH Q4H PRN 10/07/17 06:30 Abdomen 2V AP Flat Upright [CR] DAILY 10/07/17 09:13 FOLIC ACID [CHEM] Routine IRON,FE [CHEM] Routine IRON/TIBC [CHEM] Routine RETICULOCYTE COUNT [HEME] Routine TRANSFERRIN [CHEM] Routine VITAMIN B12 [CHEM] Routine 10/07/17 09:14 FERRITIN [CHEM] Routine RED BLOOD CELLS LP [BBK] Routine TYPE AND SCREEN [BBK] Routine 10/08/17 05:11 BASIC METABOLIC PANEL,BMP [CHEM] AM CBC WITH AUTO DIFF [HEME] AM 10/08/17 06:30 Abdomen 2V AP Flat Upright [CR] DAILY 10/09/17 05:11 BASIC METABOLIC PANEL,BMP [CHEM] AM CBC WITH AUTO DIFF [HEME] AM - Plan Plan:: This 67 year old female with pmh of bladder ca with susequent cystectomy then maria eugenia-bladder in 2008, admitted with small bowel obstruction and suspected UTI. 1. Small bowel obstruction: Continues to pass flatus. Feeling much better today , no distension and little abdominal pain. Clamp NG now and start CL. If she tolerates will remove NG. Stop IVFs. Continue with Morphine for pain and Zofran for nausea PRN. Hgb 7.7 this am, likely dilutional, obtained iron studies. Will stop IVFs today and monitor Hgb in the evening. Asymptomatic. 2. Suspected UTI: UC no growth. Will stop Zosyn. VTE prophylaxis: Will hold off on pharmacologic therapy due to recent gross hematuria. SCDs and ambulation.
--- NOTE | 2017-10-07 10:44 | CR ---
EXAMINATION: Abdomen HISTORY: Small bowel obstruction COMPARISON: 10/06/2017 TECHNIQUE: AP and upright views FINDINGS: The NG tube is only partially visualized and should be advanced at least 18 cm. Dual and g as is noted throughout the colon without evidence of dilated small bowel. Clips and anastomosis sutur es project over the pelvis. Degenerative changes noted within the lumbar spine. No abnormal calcifica tions or organomegaly. IMPRESSION: 1. The NG tube has been withdrawn and is noted within the mid esophagus, this needs to be advanced. 2. Stool and gas noted throughout the colon without evidence of a small bowel obstruction.
[2017-10-07] MEDS ORDERED: Iron Sucrose Complex 200 MG in Sodium Chloride 0.9% 100 ML IV ONE (11:15)
--- NOTE | 2017-10-07 11:53 | PCM.SURGPN ---
- General Info Date of Service: 10/07/17 - Review of Systems Gastrointestinal: Reports: No Symptoms (no co/n/v, passed gas) - Patient Data Vitals - Most Recent: Last Vital Signs Temp 98.2 F 10/07/17 08:00 Pulse 70 10/07/17 08:00 Resp 16 10/07/17 08:00 BP 159/58 H 10/07/17 08:00 Pulse Ox 96 10/07/17 08:00 Weight - Most Recent: 200 lb 3.2 oz I&O - Last 24 Hours: Intake & Output 10/06/17 10/07/17 10/07/17 22:59 06:59 14:59 Intake Total 657 1712 50 Output Total 650 1575 Balance 7 137 50 Lab Results Last 24 Hrs: Laboratory Results - last 24 hr 10/07/17 10/07/17 10/07/17 Range/Units 05:06 05:06 05:06 WBC 4.25 (4.0-11.0) K/uL RBC 2.76 L 2.80 L (4.30-5.90) M/uL Hgb 7.7 L (12.0-16.0) g/dL Hct 25.5 L (36.0-46.0) % MCV 92.4 (80.0-98.0) fL MCH 27.9 (27.0-32.0) pg MCHC 30.2 L (31.0-37.0) g/dL RDW Std Deviation 56.7 (28.0-62.0) fl RDW Coeff of Soraida 17 H (11.0-15.0) % Plt Count 394 (150-400) K/uL MPV 9.20 (7.40-12.00) fL Neut % (Auto) 56.7 (48.0-80.0) % Lymph % (Auto) 27.3 (16.0-40.0) % [place] % (Auto) 9.4 (0.0-15.0) % Eos % (Auto) 6.4 (0.0-7.0) % Baso % (Auto) 0.2 (0.0-1.5) % Neut # (Auto) 2.4 (1.4-5.7) K/uL Lymph # (Auto) 1.2 (0.6-2.4) K/uL [place] # (Auto) 0.4 (0.0-0.8) K/uL Eos # (Auto) 0.3 (0.0-0.7) K/uL Baso # (Auto) 0.0 (0.0-0.1) K/uL Nucleated RBC % 0.0 /100WBC Nucleated RBCs # 0 K/uL Absolute Retic 103.60 H (20-80) K/uL Percent Retic 3.7 H (0.5-1.5) % Immature Retic Fraction 17 % Sodium 144 (136-145) mmol/L Potassium 4.3 (3.5-5.1) mmol/L Chloride 113 H (98-107) mmol/L Carbon Dioxide 23.2 (21.0-32.0) mmol/L BUN 22 H (7.0-18.0) mg/dL Creatinine 1.7 H (0.6-1.0) mg/dL Est Cr Clr Drug Dosing 33.28 mL/min Estimated GFR (MDRD) 30.2 ml/min Glucose 72 L (74-106) mg/dL Calcium 8.0 L (8.5-10.1) mg/dL Iron (50-175) ug/dL TIBC (250-450) ug/dL % Saturation (20-55) % Transferrin (200-400) ug/dL Ferritin (8-252) ng/mL Vitamin B12 (193-986) pg/mL Folate (8.60-58.90) ng/mL 10/07/17 10/07/17 10/07/17 Range/Units 09:50 09:50 09:50 WBC (4.0-11.0) K/uL RBC (4.30-5.90) M/uL Hgb (12.0-16.0) g/dL Hct (36.0-46.0) % MCV (80.0-98.0) fL MCH (27.0-32.0) pg MCHC (31.0-37.0) g/dL RDW Std Deviation (28.0-62.0) fl RDW Coeff of [place]ora[place] (11.0-15.0) % Plt Count (150-400) K/uL MPV (7.40-12.00) fL Neut % (Auto) (48.0-80.0) % Lymph % (Auto) (16.0-40.0) % [place] % (Auto) (0.0-15.0) % Eos % (Auto) (0.0-7.0) % Baso % (Auto) (0.0-1.5) % Neut # (Auto) (1.4-5.7) K/uL Lymph # (Auto) (0.6-2.4) K/uL [place] # (Auto) (0.0-0.8) K/uL Eos # (Auto) (0.0-0.7) K/uL Baso # (Auto) (0.0-0.1) K/uL Nucleated RBC % /100WBC Nucleated RBCs # K/uL Absolute Retic (20-80) K/uL Percent Retic (0.5-1.5) % Immature Retic Fraction % Sodium (136-145) mmol/L Potassium (3.5-5.1) mmol/L Chloride (98-107) mmol/L Carbon Dioxide (21.0-32.0) mmol/L BUN (7.0-18.0) mg/dL Creatinine (0.6-1.0) mg/dL Est Cr Clr Drug Dosing mL/min Estimated GFR (MDRD) ml/min Glucose (74-106) mg/dL Calcium (8.5-10.1) mg/dL Iron 23 L (50-175) ug/dL TIBC 291 (250-450) ug/dL % Saturation 7.90 L (20-55) % Transferrin 204 (200-400) ug/dL Ferritin 65 (8-252) ng/mL Vitamin B12 284 (193-986) pg/mL Folate 19.50 (8.60-58.90) ng/mL Med Orders - Current: Current Medications Morphine Sulfate (Morphine) 2 mg IVPUSH Q4H PRN PRN Reason: severe pain Last Admin: 10/07/17 06:45 Dose: 2 mg Ondansetron HCl (Zofran) 4 mg IVPUSH Q4H PRN PRN Reason: Nausea/Vomiting Phenol/Menthol (Chloraseptic Throat [place]) 1 ml MUCMEM Q2H PRN PRN Reason: sore throat, NG tube irritatio Last Admin: 10/06/17 12:59 Dose: 1 spray Sodium Chloride (Saline Flush) 10 ml FLUSH ASDIRECTED PRN PRN Reason: Keep Vein Open Last Admin: 10/05/17 22:29 Dose: 10 ml Sodium Chloride (Saline Flush) 2.5 ml FLUSH ASDIRECTED PRN PRN Reason: Keep Vein Open Last Admin: 10/05/17 22:31 Dose: 2.5 ml Discontinued Medications Benzocaine (Hurricaine One 20%) 1 each MUCMEM ONETIME ONE Stop: 10/06/17 01:10 Last Admin: 10/06/17 01:17 Dose: 1 each Sodium Chloride (Normal Saline) 1,000 mls @ 999 mls/hr IV STAT ONE Stop: 10/05/17 23:27 Last Admin: 10/05/17 22:28 Dose: 999 mls/hr Dextrose/Sodium Chloride (Dextrose 5%-1/2 Ns) 1,000 mls @ 150 mls/hr IV ASDIRECTED [facility] Last Admin: 10/06/17 01:16 Dose: 150 mls/hr Piperacillin Sod/Tazobactam (Sod 3.375 gm/ Sodium Chloride) 50 mls @ 100 mls/ hr IV Q6H [facility] Last Admin: 10/07/17 08:42 Dose: 100 mls/hr Potassium Chloride/Sodium Chloride (Normal Saline With 20 Meq Kcl) 1,000 mls @ 125 mls/hr IV ASDIRECTED [facility] Last Admin: 10/06/17 11:57 Dose: 125 mls/hr Sodium Chloride (Normal Saline) 1,000 mls @ 125 mls/hr IV ASDIRECTED [facility] Last Admin: 10/07/17 06:47 Dose: 125 mls/hr Iron Sucrose 200 mg/ Sodium (Chloride) 110 mls @ 400 mls/hr IV ONETIME ONE Stop: 10/07/17 11:31 Last Admin: 10/07/17 11:49 Dose: 400 mls/hr Ketorolac Tromethamine (Toradol) 30 mg IVPUSH ONETIME ONE Stop: 10/05/17 22:07 Last Admin: 10/05/17 22:28 Dose: 30 mg Morphine Sulfate (Morphine) 4 mg IVPUSH Q4H PRN PRN Reason: Pain Last Admin: 10/06/17 16:00 Dose: 4 mg Ondansetron HCl (Zofran) 4 mg IVPUSH ONETIME ONE Stop: 10/05/17 22:27 Last Admin: 10/05/17 22:31 Dose: 4 mg - Exam Lungs: Clear to Auscultation GI/Abdominal Exam: Normal Bowel Sounds, Soft, No Distention - Problem List Review Problem List Initiated/Reviewed/Updated: Yes - My Orders Last 24 Hours: Active Orders 24 hr Category Date Time Status Antiembolic Devices [RC] PER UNIT ROUTINE Care 10/06/17 12:32 Active Communication Order [RC] ROUTINE Care 10/06/17 22:00 Active Intake and Output [RC] Q12H Care 10/06/17 12:32 Active NG [Gastrointestinal Tube Mgmt] [RC] ASDIRECTED Care 10/07/17 10:16 Active Oxygen Therapy [RC] PRN Care 10/06/17 12:32 Active Up With Assistance [RC] ASDIRECTED Care 10/06/17 12:32 Active VTE/DVT Education [RC] PER UNIT ROUTINE Care 10/06/17 12:32 Active Vital Signs [RC] Q4H Care 10/06/17 12:32 Active Clear Liquid Diet [DIET] Diet 10/07/17 Lunch Active Abdomen 2V AP Flat Upright [CR] DAILY Exams 10/08/17 06:30 Ordered BASIC METABOLIC PANEL,BMP [CHEM] AM Lab 10/08/17 05:11 Ordered BASIC METABOLIC PANEL,BMP [CHEM] AM Lab 10/09/17 05:11 Ordered CBC WITH AUTO DIFF [HEME] AM Lab 10/08/17 05:11 Ordered CBC WITH AUTO DIFF [HEME] AM Lab 10/09/17 05:11 Ordered HEMOGLOBIN/HEMATOCRIT,HH [HEME] Routine Lab 10/07/17 15:00 Ordered RED BLOOD CELLS LP [BBK] Routine Lab 10/07/17 09:50 Received TYPE AND SCREEN [BBK] Routine Lab 10/07/17 09:50 Received Morphine Med 10/06/17 17:09 Active 2 mg IVPUSH Q4H PRN Phenol [Chloraseptic Throat [place]] Med 10/06/17 12:31 Active 1 ml MUCMEM Q2H PRN NG [Nasogastric Orogastric Tube Removal] [OM.PC] Oth 10/07/17 11:38 Ordered Routine Sequential Compression Device [OM.PC] Per Unit Routine Oth 10/06/17 12:32 Ordered Resuscitation Status Routine Resus Stat 10/06/17 12:31 Ordered Medication Orders Morphine Sulfate (Morphine) 2 mg IVPUSH Q4H PRN PRN Reason: severe pain Last Admin: 10/07/17 06:45 Dose: 2 mg Admin: 10/06/17 22:51 Dose: 2 mg Ondansetron HCl (Zofran) 4 mg IVPUSH Q4H PRN PRN Reason: Nausea/Vomiting Phenol/Menthol (Chloraseptic Throat [place]) 1 ml MUCMEM Q2H PRN PRN Reason: sore throat, NG tube irritatio Last Admin: 10/06/17 12:59 Dose: 1 spray Sodium Chloride (Saline Flush) 10 ml FLUSH ASDIRECTED PRN PRN Reason: Keep Vein Open Last Admin: 10/05/17 22:29 Dose: 10 ml Sodium Chloride (Saline Flush) 2.5 ml FLUSH ASDIRECTED PRN PRN Reason: Keep Vein Open Last Admin: 10/05/17 22:31 Dose: 2.5 ml - Assessment Assessment (Free Text/Narrative):: responded well to ngt decompression; passing gas; dc ngt, started on full liquid diet; if heather, ok to go home on full liquid diet X 24 hr, then advance diet as heather; follow up w me 1 - 2 wks; will sign off, recall if questions; thanks for the consult and care of this oran pt - Plan Plan (Free Text/Narrative):: responded well to ngt decompression; passing gas; dc ngt, started on full liquid diet; if heather, ok to go home on full liquid diet X 24 hr, then advance diet as heather; follow up w me 1 - 2 wks; will sign off, recall if questions; thanks for the consult and care of this nice pt
[2017-10-07] MEDS ORDERED: Docusate Sodium 100 MG Cap PO SCH (12:00)
[2017-10-07] MEDS ORDERED: Bisacodyl 10 MG Supp RECTAL ONE (12:05)
--- NOTE | 2017-10-07 14:30 | PCM.DCSUM1 ---
Discharge Summary - Hospital Course Brief History: This 67 year old female with pmh of cystectomy with subsequent neopbladder completed in [facility] 2008 presented to the ED with concerns of worsening abdominal pain and distension. She was transferred to [facility] due to hematuria and clotting. She was found to have UTI and treated with macrobid. She reports she has not felt right since driving back from [place]. She has been in constant contact with Dr Ortez at [facility] and they suggested she be seen due to worsening pain. She was instructed to take laxatives due to concerns of constipation. She reports she took some yesterday and has intially very small hard bowel movements then they became loose. She ate around 1 pm, but felt very bloated and distended with pain throughout her abdomen. Nothing made the pain better or worse per se. She reports no black or bloody BMs. She did have 1 large emesis of food particles while in the ED with relief of some abdominal pain. She denies fevers at home. A salas remains in from ED, no recent blood or clots noted. In the ED leukocytosis at 14,000, hgb 10.4, BUN 29, Cr 1.8, UA showed sm leukocyte esterase and WBC 4-12. K+ 4.4. CT of abdomen/pelvis revealed small bowel obstruction with transition point within the lower abdomen, likely secondary to adhesions. NG tube was placed to suction. SHe was admitted inpatient for small bowel obstruction. - Discharge Data Discharge Date: 10/07/17 Discharge Disposition: Home, Self-Care 01 Condition: Good - Discharge Diagnosis/Problem(s) (1) Small bowel obstruction SNOMED Code(s): 213932062 ICD Code: K56.609 - UNSP INTESTNL OBST, UNSP TO PARTIAL VERSUS COMPLETE OBST Status: Resolved Current Visit: Yes (2) Hx of bladder cancer SNOMED Code(s): 438105561 ICD Code: Z85.51 - PERSONAL HISTORY OF MALIGNANT NEOPLASM OF BLADDER Status : Chronic Current Visit: Yes (3) Hx of total cystectomy SNOMED Code(s): 306225777 ICD Code: Z98.890 - OTHER SPECIFIED POSTPROCEDURAL STATES Status: Chronic Current Visit: Yes (4) Iron deficiency anemia SNOMED Code(s): 74163196 ICD Code: D50.9 - IRON DEFICIENCY ANEMIA, UNSPECIFIED Status: Acute Current Visit: Yes - Patient Summary/Data Consults: Consultations 10/06/17 08:29 Consult to Physician [CONS] Routine - Patient Instructions Diet: Full Liquid Diet (for 24 hours then slowly advance to regular) Activity: As Tolerated, No Strenuous Activities, Rest and Relax Today Driving: Do Not Drive (today) Showering/Bathing: May Shower Notify Provider of: Fever, Increased Pain, Swelling and Redness, Drainage, Nausea and/or Vomiting - Discharge Plan Prescriptions/Med Rec: Iron Polysaccharide Complex [Polysaccharide Iron 150] 150 mg PO DAILY #30 capsule Home Medications: Home Meds Docusate Sodium [Colace] 100 mg PO BID PRN #30 cap 10/07/17 [Rx] Iron Polysaccharide Complex [Polysaccharide Iron 150] 150 mg PO DAILY #30 capsule 10/07/17 [Rx] Patient Handouts: Small Bowel Obstruction, [id number], Polysaccharide-Iron Complex tablets or capsules Referrals: Cruz Lee MD [Physician] - 10/20/17 Domenic Nelson MD [Physician] - 10/23/17 2:15 pm - Discharge Summary/Plan Comment DC Time >30 min.: No Discharge Summary/Plan Comment: Discharge Diagnoses: Small bowel obstruction- resolved Iron deficiency anemia Hx cystectomy with maria eugenia-bladder Meme was admitted and treated with NG gastric compression and bowel rest. She had very little output in her NG overnight and today she is feeling much better. Dr Nelson consulted and reviewed am abdominal Xray. bowel noted throughout colon, no obstruction noted. NG tube was removed and clear liquids were started. Dr Nelson recommended Dulcolax, which she had and had successful BM afterwards. She also tolerated FL diet and is now requesting discharge home. She is feeling much better, no further pain. Salas to be removed prior to discharge and she will continue straight cathing as she normally does. She was noted to have low hgb, which is likely mainly due to dilutional effect from IVFs. She is asymptomatic. Iron studies obtained, iron was noted to be low at 23. She was given Venofer IV and will be given prescription for Iron. Repeat hgb is 8.1 this afternoon and she continues to want discharge. She will have a follow up with Dr Lee, with labwork, which was previously scheduled as well as follow up with Dr Nelson. She is to continue FL diet for 24 hours then slowly advance to regular diet. She is to return to clinic or ED if concerns should arise. - General Info Date of Service: 10/07/17 Admission Dx/Problem (Free Text: Small bowel obstruction. Subjective Update: Meme is doing well this afternoon. Patient is adamant about going home this afternoon. Reports she had a BM and is tolerating diet well. Functional Status: Reports: Pain Controlled, Tolerating Diet, Ambulating - Review of Systems General: Reports: No Symptoms HEENT: Reports: No Symptoms Pulmonary: Reports: No Symptoms. Denies: Shortness of Breath, Pleuritic Chest Pain, Cough, Sputum Cardiovascular: Reports: No Symptoms. Denies: Chest Pain, Palpitations Gastrointestinal: Reports: No Symptoms. Denies: Abdominal Pain, Nausea, Vomiting Genitourinary: Reports: No Symptoms. Denies: Dysuria, Frequency, Burning Musculoskeletal: Reports: No Symptoms Skin: Reports: No Symptoms Neurological: Reports: No Symptoms Psychiatric: Reports: No Symptoms - Patient Data Vitals - Most Recent: Last Vital Signs Temp 98.2 F 10/07/17 08:00 Pulse 70 10/07/17 08:00 Resp 16 10/07/17 08:00 BP 159/58 H 10/07/17 08:00 Pulse Ox 96 10/07/17 12:32 Weight - Most Recent: 90.809 kg I&O - Last 24 hours: Intake & Output 10/06/17 10/07/17 10/07/17 22:59 06:59 14:59 Intake Total 657 1712 150 Output Total 650 1575 Balance 7 137 150 Lab Results - Last 24 hrs: Laboratory Results - last 24 hr 10/07/17 10/07/17 10/07/17 Range/Units 05:06 05:06 05:06 WBC 4.25 (4.0-11.0) K/uL RBC 2.76 L 2.80 L (4.30-5.90) M/uL Hgb 7.7 L (12.0-16.0) g/dL Hct 25.5 L (36.0-46.0) % MCV 92.4 (80.0-98.0) fL MCH 27.9 (27.0-32.0) pg MCHC 30.2 L (31.0-37.0) g/dL RDW Std Deviation 56.7 (28.0-62.0) fl RDW Coeff of Soraida 17 H (11.0-15.0) % Plt Count 394 (150-400) K/uL MPV 9.20 (7.40-12.00) fL Neut % (Auto) 56.7 (48.0-80.0) % Lymph % (Auto) 27.3 (16.0-40.0) % [place] % (Auto) 9.4 (0.0-15.0) % Eos % (Auto) 6.4 (0.0-7.0) % Baso % (Auto) 0.2 (0.0-1.5) % Neut # (Auto) 2.4 (1.4-5.7) K/uL Lymph # (Auto) 1.2 (0.6-2.4) K/uL [place] # (Auto) 0.4 (0.0-0.8) K/uL Eos # (Auto) 0.3 (0.0-0.7) K/uL Baso # (Auto) 0.0 (0.0-0.1) K/uL Nucleated RBC % 0.0 /100WBC Nucleated RBCs # 0 K/uL Absolute Retic 103.60 H (20-80) K/uL Percent Retic 3.7 H (0.5-1.5) % Immature Retic Fraction 17 % Sodium 144 (136-145) mmol/L Potassium 4.3 (3.5-5.1) mmol/L Chloride 113 H (98-107) mmol/L Carbon Dioxide 23.2 (21.0-32.0) mmol/L BUN 22 H (7.0-18.0) mg/dL Creatinine 1.7 H (0.6-1.0) mg/dL Est Cr Clr Drug Dosing 33.28 mL/min Estimated GFR (MDRD) 30.2 ml/min Glucose 72 L (74-106) mg/dL Calcium 8.0 L (8.5-10.1) mg/dL Iron (50-175) ug/dL TIBC (250-450) ug/dL % Saturation (20-55) % Transferrin (200-400) ug/dL Ferritin (8-252) ng/mL Vitamin B12 (193-986) pg/mL Folate (8.60-58.90) ng/mL Blood Type Antibody Screen Crossmatch 10/07/17 10/07/17 10/07/17 Range/Units 09:50 09:50 09:50 WBC (4.0-11.0) K/uL RBC (4.30-5.90) M/uL Hgb (12.0-16.0) g/dL Hct (36.0-46.0) % MCV (80.0-98.0) fL MCH (27.0-32.0) pg MCHC (31.0-37.0) g/dL RDW Std Deviation (28.0-62.0) fl RDW Coeff of Sora[place] (11.0-15.0) % Plt Count (150-400) K/uL MPV (7.40-12.00) fL Neut % (Auto) (48.0-80.0) % Lymph % (Auto) (16.0-40.0) % [place] % (Auto) (0.0-15.0) % Eos % (Auto) (0.0-7.0) % Baso % (Auto) (0.0-1.5) % Neut # (Auto) (1.4-5.7) K/uL Lymph # (Auto) (0.6-2.4) K/uL [place] # (Auto) (0.0-0.8) K/uL Eos # (Auto) (0.0-0.7) K/uL Baso # (Auto) (0.0-0.1) K/uL Nucleated RBC % /100WBC Nucleated RBCs # K/uL Absolute Retic (20-80) K/uL Percent Retic (0.5-1.5) % Immature Retic Fraction % Sodium (136-145) mmol/L Potassium (3.5-5.1) mmol/L Chloride (98-107) mmol/L Carbon Dioxide (21.0-32.0) mmol/L BUN (7.0-18.0) mg/dL Creatinine (0.6-1.0) mg/dL Est Cr Clr Drug Dosing mL/min Estimated GFR (MDRD) ml/min Glucose (74-106) mg/dL Calcium (8.5-10.1) mg/dL Iron 23 L (50-175) ug/dL TIBC 291 (250-450) ug/dL % Saturation 7.90 L (20-55) % Transferrin 204 (200-400) ug/dL Ferritin 65 (8-252) ng/mL Vitamin B12 284 (193-986) pg/mL Folate 19.50 (8.60-58.90) ng/mL Blood Type Antibody Screen Crossmatch 10/07/17 Range/Units 09:50 WBC (4.0-11.0) K/uL RBC (4.30-5.90) M/uL Hgb (12.0-16.0) g/dL Hct (36.0-46.0) % MCV (80.0-98.0) fL MCH (27.0-32.0) pg MCHC (31.0-37.0) g/dL RDW Std Deviation (28.0-62.0) fl RDW Coeff of Sora[place] (11.0-15.0) % Plt Count (150-400) K/uL MPV (7.40-12.00) fL Neut % (Auto) (48.0-80.0) % Lymph % (Auto) (16.0-40.0) % [place] % (Auto) (0.0-15.0) % Eos % (Auto) (0.0-7.0) % Baso % (Auto) (0.0-1.5) % Neut # (Auto) (1.4-5.7) K/uL Lymph # (Auto) (0.6-2.4) K/uL [place] # (Auto) (0.0-0.8) K/uL Eos # (Auto) (0.0-0.7) K/uL Baso # (Auto) (0.0-0.1) K/uL Nucleated RBC % /100WBC Nucleated RBCs # K/uL Absolute Retic (20-80) K/uL Percent Retic (0.5-1.5) % Immature Retic Fraction % Sodium (136-145) mmol/L Potassium (3.5-5.1) mmol/L Chloride (98-107) mmol/L Carbon Dioxide (21.0-32.0) mmol/L BUN (7.0-18.0) mg/dL Creatinine (0.6-1.0) mg/dL Est Cr Clr Drug Dosing mL/min Estimated GFR (MDRD) ml/min Glucose (74-106) mg/dL Calcium (8.5-10.1) mg/dL Iron (50-175) ug/dL TIBC (250-450) ug/dL % Saturation (20-55) % Transferrin (200-400) ug/dL Ferritin (8-252) ng/mL Vitamin B12 (193-986) pg/mL Folate (8.60-58.90) ng/mL Blood Type O POSITIVE Antibody Screen NEGATIVE Crossmatch See Detail Med Orders - Current: Current Medications Docusate Sodium (Colace) 100 mg PO BID GABI Last Admin: 10/07/17 12:15 Dose: 100 mg Morphine Sulfate (Morphine) 2 mg IVPUSH Q4H PRN PRN Reason: severe pain Last Admin: 10/07/17 06:45 Dose: 2 mg Ondansetron HCl (Zofran) 4 mg IVPUSH Q4H PRN PRN Reason: Nausea/Vomiting Phenol/Menthol (Chloraseptic Throat [place]) 1 ml MUCMEM Q2H PRN PRN Reason: sore throat, NG tube irritatio Last Admin: 10/06/17 12:59 Dose: 1 spray Sodium Chloride (Saline Flush) 10 ml FLUSH ASDIRECTED PRN PRN Reason: Keep Vein Open Last Admin: 10/05/17 22:29 Dose: 10 ml Sodium Chloride (Saline Flush) 2.5 ml FLUSH ASDIRECTED PRN PRN Reason: Keep Vein Open Last Admin: 10/05/17 22:31 Dose: 2.5 ml Discontinued Medications Benzocaine (Hurricaine One 20%) 1 each MUCMEM ONETIME ONE Stop: 10/06/17 01:10 Last Admin: 10/06/17 01:17 Dose: 1 each Bisacodyl (Dulcolax) 10 mg RECTAL ONETIME ONE Stop: 10/07/17 12:06 Last Admin: 10/07/17 12:23 Dose: 10 mg Sodium Chloride (Normal Saline) 1,000 mls @ 999 mls/hr IV STAT ONE Stop: 10/05/17 23:27 Last Admin: 10/05/17 22:28 Dose: 999 mls/hr Dextrose/Sodium Chloride (Dextrose 5%-1/2 Ns) 1,000 mls @ 150 mls/hr IV ASDIRECTED [facility] Last Admin: 10/06/17 01:16 Dose: 150 mls/hr Piperacillin Sod/Tazobactam (Sod 3.375 gm/ Sodium Chloride) 50 mls @ 100 mls/ hr IV Q6H [facility] Last Admin: 10/07/17 08:42 Dose: 100 mls/hr Potassium Chloride/Sodium Chloride (Normal Saline With 20 Meq Kcl) 1,000 mls @ 125 mls/hr IV ASDIRECTED [facility] Last Admin: 10/06/17 11:57 Dose: 125 mls/hr Sodium Chloride (Normal Saline) 1,000 mls @ 125 mls/hr IV ASDIRECTED [facility] Last Admin: 10/07/17 06:47 Dose: 125 mls/hr Iron Sucrose 200 mg/ Sodium (Chloride) 110 mls @ 400 mls/hr IV ONETIME ONE Stop: 10/07/17 11:31 Last Admin: 10/07/17 11:49 Dose: 400 mls/hr Ketorolac Tromethamine (Toradol) 30 mg IVPUSH ONETIME ONE Stop: 10/05/17 22:07 Last Admin: 10/05/17 22:28 Dose: 30 mg Morphine Sulfate (Morphine) 4 mg IVPUSH Q4H PRN PRN Reason: Pain Last Admin: 10/06/17 16:00 Dose: 4 mg Ondansetron HCl (Zofran) 4 mg IVPUSH ONETIME ONE Stop: 10/05/17 22:27 Last Admin: 10/05/17 22:31 Dose: 4 mg - Exam General: Reports: Alert, Oriented, Cooperative, No Acute Distress Neck: Reports: Supple Lungs: Reports: Clear to Auscultation, Normal Respiratory Effort Cardiovascular: Reports: Regular Rate, Regular Rhythm GI/Abdominal Exam: Normal Bowel Sounds, Soft, Non-Tender, No Organomegaly, No Distention, No Abnormal Bruit, No Mass, Pelvis Stable Back Exam: Reports: Normal Inspection, Full Range of Motion Extremities: Normal Inspection, Normal Range of Motion, Non-Tender, No Pedal Edema, Normal Capillary Refill Neurological: Reports: No New Focal Deficit Psy/Mental Status: Reports: Alert, Normal Affect, Normal Mood *Q Meaningful Use (DIS) - VTE *Q VTE Criteria *Q: - Stroke *Q Stroke Criteria *Q: - AMI *Q AMI Criteria *Q:
== END 2017-10-07 15:40 | disposition home or self-care (01) | DRG 390 ==
LOC: MW.ED 21:23 → MW.MS 10-06 00:50 → OBSVTOIN 10-06 02:45 → MW.MS 10-06 02:45
PROVIDERS: ADMIT Family Medicine; ATTEND Family Medicine
DX: K56.609 Unspecified intestinal obstruction, unspecified as to partial versus complete obstruction (principal); Z85.51 Personal history of malignant neoplasm of bladder; Z90.6 Acquired absence of other parts of urinary tract; J45.909 Unspecified asthma, uncomplicated; F32.9 Major depressive disorder, single episode, unspecified; R53.1 Weakness; R31.9 Hematuria, unspecified
CPT/HCPCS: 36415; 74176; 80053; 81001; 83605; 85025; 87086; 96361; 96365; 96375; 99285; A9270; J1885; J2405; J7040; J7042; 74018; 74018-26; 74019; 74019-26; 80048; 82607; 82728; 82746; 83550; 85014; 85018; 85045; 99284; J1756; J2270; J2543; J3480; J7030; J7050

== ENCOUNTER 2019-09-20 06:50 | Emergency (ER) | payer MEDICARE, OTHER ==
[2019-09-20] MEDS ORDERED: Acetaminophen 325 MG Tab PO ONE (07:30)
--- NOTE | 2019-09-20 08:42 | CR ---
Left wrist: 2 views of the left wrist were obtained. Comparison: No prior wrist exam. Severe joint space narrowing is noted of the distal navicular bone with mild osteophytes. Severe joint space narrowing is noted at the CMC joint of the thumb with osteophytes. Slight subluxation is also noted within this joint. Bony debris is also noted off this joint. No acute fracture or other bony abnormality is appreciated. Impression: 1. Degenerative change as noted above. 2. Nothing acute is otherwise seen. Diagnostic code #3 This report was dictated in [place] Standard Time
--- NOTE | 2019-09-20 08:59 | EDM.PDOC ---
ED HPI GENERAL MEDICAL PROBLEM - General Chief Complaint: Upper Extremity Injury/Pain Stated Complaint: LEFT WRIST PAIN Time Seen by Provider: 09/20/19 07:20 - History of Present Illness INITIAL COMMENTS - FREE TEXT/NARRATIVE: 69-year-old female history of cervicalgia presenting to ER for left wrist pain patient woke up with the pain denied trauma denied fever denied weakness denied numbness. Patient is concerned that she may have something broken. No Associated symptoms. She denied any active neck pain. The pain in her wrist was localized to a 3 cm x 1 cm area in the ventral aspect of the radial side. Not radiate anywhere, not report any skin changes, no swelling. Onset: Today left hand Pain Score (Numeric/FACES): 8 - Related Data Allergies Allergy/AdvReac Type Severity Reaction Status Date / Time No Known Allergies Allergy Verified 09/20/19 07:00 Home Meds: Home Meds Docusate Sodium [Colace] 100 mg PO BID PRN #30 cap 10/07/17 [Rx] Iron Polysaccharide Complex [Polysaccharide Iron 150] 150 mg PO DAILY #30 capsule 10/07/17 [Rx] Past Medical History HEENT History: Reports: None Cardiovascular History: Reports: None Respiratory History: Reports: Asthma Gastrointestinal History: Reports: Bowel Obstruction Genitourinary History: Reports: UTI, Recurrent, Other (See Below) Other Genitourinary History: Hematuria PLATING TECHNICIAN History: Reports: None Musculoskeletal History: Reports: None Neurological History: Reports: None Psychiatric History: Reports: Anxiety, Depression Endocrine/Metabolic History: Reports: None Insulin Pump Model and Patient Care Coordinator: N/A Hematologic History: Reports: None Immunologic History: Reports: None Oncologic (Cancer) History: Reports: Bladder Dermatologic History: Reports: None - Infectious Disease History Infectious Disease History: Reports: None - Past Surgical History HEENT Surgical History: Reports: Oral Surgery, Tonsillectomy GI Surgical History: Reports: Appendectomy Female Surgical History: Reports: Other (See Below) Other Female Surgeries/Procedures: bladder removal, maria eugenia-bladder Musculoskeletal Surgical History: Reports: Other (See Below) Other Musculoskeletal Surgeries/Procedures:: 3 discs in neck ruptured; repaired Oncologic Surgical History: Reports: Other (See Below) Other Oncologic Surgeries/Procedures: bladder removal, maria eugenia bladder Social & Family History - Family History Family Medical History: Noncontributory - Tobacco Use Smoking Status *Q: Never Smoker - Caffeine Use Caffeine Use: Reports: Coffee - Living Situation & Occupation Living situation: Reports: Review of Systems - Review of Systems Review Of Systems: See Below Constitutional: Reports: No Symptoms Eyes: Reports: No Symptoms Ears: Reports: No Symptoms Nose: Reports: No Symptoms Mouth/Throat: Reports: No Symptoms Respiratory: Reports: No Symptoms Cardiovascular: Reports: No Symptoms GI/Abdominal: Reports: No Symptoms Genitourinary: Reports: No Symptoms Musculoskeletal: Reports: Other (l wrist pain) ED EXAM, GENERAL - Physical Exam Exam: See Below Exam Limited By: Altered Mental Status General Appearance: Alert, WD/WN Eye Exam: Bilateral Eye: EOMI Neck: Non-Tender Respiratory/Chest: No Respiratory Distress, Lungs Clear Cardiovascular: Normal Peripheral Pulses Peripheral Pulses: 3+: Radial (L), Radial (R) Extremities: Other (The left wrist had full range of motion patient has preserved strength she can make a fist sensation was intact. Radial pulses intact. The left hand capillary refill was normal. Grossly same appearance as the right hand/wrist. No bony tenderness throughout no erythema throughout. No cervical tenderness to deny neck pain) Course - Vital Signs Last Recorded V/S: Last Vital Signs Temp 96.8 F L 09/20/19 07:01 Pulse 66 09/20/19 07:01 Resp 18 09/20/19 07:01 BP 183/87 H 09/20/19 07:01 Pulse Ox 96 09/20/19 07:01 - Orders/Labs/Meds Meds: Medications Discontinued Medications Generic Name Dose Route Start Last Admin Trade Name Levy PRN Reason Stop Dose Admin Acetaminophen 650 mg 09/20/19 07:30 09/20/19 07:44 Tylenol PO 09/20/19 07:31 650 mg NOW ONE Administration - Re-Assessments/Exams Free Text/Narrative Re-Assessment/Exam: 09/20/19 08:59 Explaining the results of the x-ray to the patient the plan to prescribe her Tylenol patient became annoyed picked up her things and left did not let me reexamine her extremity. I was able to discuss return precautions with her before she left. Told to follow-up with her regular doctor Departure - Departure Time of Disposition: 09:01 Disposition: Home, Self-Care 01 Clinical Impression: Wrist pain - Discharge Information Referrals: Cruz Lee MD [Primary Care Provider] - Sepsis Event Note - Evaluation Sepsis Screening Result: No Definite Risk - Focused Exam Vital Signs: Vital Signs Temp Pulse Resp BP Pulse Ox 09/20/19 07:01 96.8 F L 66 18 183/87 H 96 Date Exam was Performed: 09/20/19 Time Exam was Performed: 08:52
== END 2019-09-20 08:53 | disposition home or self-care (01) ==
LOC: MW.ED 06:50
DX: M25.532 Pain in left wrist (principal); J45.909 Unspecified asthma, uncomplicated; F41.9 Anxiety disorder, unspecified; F32.9 Major depressive disorder, single episode, unspecified
CPT/HCPCS: 73100; 99283; A9270; 99282

== ENCOUNTER 2020-06-14 10:59 | Inpatient (IN) | payer MEDICARE ==
--- NOTE | 2020-06-14 11:08 | EDM.PDOC ---
ED HPI GENERAL MEDICAL PROBLEM - General Chief Complaint: Respiratory Problem Stated Complaint: COUGHING SOB CAME FROM CLINIC Time Seen by Provider: 06/14/20 11:04 Source of Information: Reports: Patient History Limitations: Reports: No Limitations - History of Present Illness INITIAL COMMENTS - FREE TEXT/NARRATIVE: HISTORY AND PHYSICAL: History of present illness: Patient is a 70-year-old female who presents to the emergency room with complaints of a 6-week history of "bronchiolitic asthma". She states she felt that her "asthma was just acting up" and has been doing [id number] products and inhaler for the symptoms. Over the past 3 days she has had nausea, vomiting, diarrhea and decreased urinary output. Her has had similar symptoms and was tested at the respiratory clinic for COVID and he was positive. Today she presented to the respiratory clinic but due to their concern of dehydration they recommended she come to the emergency room for evaluation. Upon the arrival she states she has a neurogenic bladder and does have to straight cath to void, she states that her urine is now "coming out of my rectum" and she has not been able to get any urinary output. She has had chills without a reported fever. Patient denies any headache, change in vision, syncope or near syncope. Denies any chest pain, back pain, shortness of breath, dysuria, nor blood in urine or stool. Review of systems: As per history of present illness and below otherwise all systems reviewed and negative. Past medical history: As per history of present illness and as reviewed below otherwise noncontributory. Surgical history: As per history of present illness and as reviewed below otherwise noncontributory. Social history: See social history for further information Family history: As per history of present illness and as reviewed below otherwise noncontributory. Physical exam: General: Well developed and well nourished 70 year old female. Alert and yahir entated x 3. Nontoxic in appearance and in no acute distress. Vital signs are stable and have been reviewed by me. Nursing notes were reviewed. HEENT: Atraumatic, normocephalic, pupils equal and reactive bilaterally, negative for conjunctival pallor or scleral icterus, mucous membranes dry/tacky, trachea midline. No drooling or trismus noted. No meningeal signs. No hot potato voice noted. Lungs: Clear to auscultation, breath sounds equal bilaterally, chest nontender. Normal work of breathing, no accessory muscles used. Heart: S1S2, regular rate and rhythm without overt murmur Abdomen: Soft, nondistended, nontender. Negative for masses or hepatosplenomegaly. Negative for costovertebral tenderness. Skin: Intact, warm, dry. No lesions or rashes noted. Hematologic: No petechiae or purpra. Mucosa appropriate color and normal nail bed color and refill. Extremities: Atraumatic, moves all extremities per self without difficulty or deficits, negative for cords or calf pain. Neurovascular unremarkable. Neuro: Awake, alert, oriented. Cranial nerves II through XII unremarkable. Cerebellum unremarkable. Motor and sensory unremarkable throughout. Exam nonfocal. Psychiatric: Mood and affect are appropriate. Normal thought process. Answering questions appropriately. Notes: EKG shows a sinus rhythm with a rate of 80. No concern for STEMI. Chest x-ray shows mild hyperinflation and chronic interstitial changes without dense consolidation. She does have a leukocytosis although is not complaining of respiratory symptoms at this time, I will do some imaging of her abdomen and pelvis. BUN/Creat is elevated at 60/4.6, she is receiving fluids at this time. Patient is refusing to straight cath herself at this time to give a urine sample and does not want assistance from nursing staff. She is currently getting IV fluids and states she will try after her fluids are completed. Patient does have an elevated D-dimer. Patient has the acute kidney injury with a GFR of 9, at this time I feel that the elevated D-dimer is due to her COVID being positive.. Spoke with Dr Michael, hospitalist, about the patient's renal function and elevated D-dimer. At this time we will hold off on any imaging. We are still waiting on the patient to provide us a urine sample. We will admit her for COVID-19 and IV fluid rehydration/kidney injury. Patient is aware and agreeable. Diagnostics: CBC, CMP, Lipase, UA, Stool Studies, COVID, CXR Therapeutics: IV fluids, Zofran Impression: Dehydration COVID-19 MARTHA Plan: Inpatient admission Definitive disposition and diagnosis as appropriate pending reevaluation and review of above. 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: Reports: None Musculoskeletal History: Reports: None Neurological History: Reports: None Psychiatric History: Reports: Anxiety, Depression Endocrine/Metabolic History: Reports: None Insulin Pump Model and Window Trimmer: N/A Hematologic History: Reports: None Immunologic History: Reports: None Oncologic (Cancer) History: Reports: Bladder Dermatologic History: Reports: None - Infectious Disease History Infectious Disease History: Reports: None - Past Surgical History HEENT Surgical History: Reports: Oral Surgery, Tonsillectomy GI Surgical History: Reports: Appendectomy Female Surgical History: Reports: Other (See Below) Other Female Surgeries/Procedures: bladder removal, maria eugenia-bladder Musculoskeletal Surgical History: Reports: Other (See Below) Other Musculoskeletal Surgeries/Procedures:: 3 discs in neck ruptured; repaired Oncologic Surgical History: Reports: Other (See Below) Other Oncologic Surgeries/Procedures: bladder removal, maria eugenia bladder Social & Family History - Family History Family Medical History: No Pertinent Family History - Caffeine Use Caffeine Use: Reports: Coffee - Living Situation & Occupation Living situation: Reports: ED ROS GENERAL - Review of Systems Review Of Systems: Comprehensive ROS is negative, except as noted in HPI. ED EXAM, GENERAL - Physical Exam Exam: See Below (See dictation) Course - Vital Signs Last Recorded V/S: Last Vital Signs Temp 97.8 F 06/14/20 17:11 Pulse 67 06/14/20 17:11 Resp 20 06/14/20 17:11 BP 122/68 06/14/20 16:58 Pulse Ox 97 06/14/20 17:11 - Orders/Labs/Meds Orders: Active Orders 24 hr Category Date Time Status EKG 12 Lead [EKG Documentation Completion] [RC] STAT Care 06/14/20 11:04 Active CAMPYLOBACTER CULT [MREF] Stat Lab 06/14/20 12:29 Ordered CORONAVIRUS COVID-19 PCR PHL Stat Lab 06/14/20 11:27 Received CULTURE URINE [RM] Stat Lab 06/14/20 15:55 Received OVA & PARASITES BY IMMUNOASSAY [MREF] Stat Lab 06/14/20 12:29 Ordered STOOL CULTURE/SHIGA TOXIN [MREF] Stat Lab 06/14/20 12:29 Ordered Medication Orders Acetaminophen (Tylenol) 650 mg PO Q4H PRN PRN Reason: Pain Albuterol (Ventolin Hfa) 0 gm INH Q6H PRN PRN Reason: Dyspnea Heparin Sodium (Porcine) (Heparin Sodium) 5,000 units SUBCUT Q12H [facility] Last Admin: 06/14/20 16:20 Dose: 5,000 units Documented by: [id number] Lactated Ringer's (Ringers, Lactated) 1,000 mls @ 125 mls/hr IV Q8H [facility] Last Admin: 06/14/20 16:53 Dose: 125 mls/hr Documented by: FRANCO Ceftriaxone Sodium/Dextrose 1 (gm/ Premix) 50 mls @ 100 mls/hr IV Q24H [facility] Last Admin: 06/14/20 17:08 Dose: 100 mls/hr Documented by: FRANCO Influenza Virus Vaccine (Fluzone High-Dose Quad ) 240 mcg IM .ONCE ONE Stop: 06/16/20 09:01 Ondansetron HCl (Zofran) 4 mg IVPUSH Q4H PRN PRN Reason: Nausea Pneumococcal Polyvalent Vaccine (Pneumovax 23) 25 mcg IM .ONCE ONE Stop: 06/16/20 09:01 Labs: Laboratory Tests 06/14/20 06/14/20 06/14/20 Range/Units 11:27 11:27 11:27 WBC 13.61 H (4.0-11.0) K/uL RBC 4.20 L (4.30-5.90) M/uL Hgb 11.1 L (12.0-16.0) g/dL Hct 35.4 L (36.0-46.0) % MCV 84.3 (80.0-98.0) fL MCH 26.4 L (27.0-32.0) pg MCHC 31.4 (31.0-37.0) g/dL RDW Std Deviation 47.7 (28.0-62.0) fl RDW Coeff of Soraida 16 H (11.0-15.0) % Plt Count 272 (150-400) K/uL MPV 10.70 (7.40-12.00) fL Neut % (Auto) 87.1 H (48.0-80.0) % Lymph % (Auto) 5.5 L (16.0-40.0) % Taylor % (Auto) 7.3 (0.0-15.0) % Eos % (Auto) 0.0 (0.0-7.0) % Baso % (Auto) 0.1 (0.0-1.5) % Neut # (Auto) 11.9 H (1.4-5.7) K/uL Lymph # (Auto) 0.8 (0.6-2.4) K/uL Taylor # (Auto) 1.0 H (0.0-0.8) K/uL Eos # (Auto) 0.0 (0.0-0.7) K/uL Baso # (Auto) 0.0 (0.0-0.1) K/uL Nucleated RBC % 0.0 /100WBC Nucleated RBCs # 0 K/uL D-Dimer, Quantitative (0.0-0.50) mg/L FEU Lactate 0.8 (0.20-2.00) mmol/L Sodium 134 L (136-145) mmol/L Potassium 3.9 (3.5-5.1) mmol/L Chloride 101 (98-107) mmol/L Carbon Dioxide 16.0 L (21.0-32.0) mmol/L BUN 60 H (7.0-18.0) mg/dL Creatinine 4.6 H (0.6-1.0) mg/dL Est Cr Clr Drug Dosing 11.81 mL/min Estimated GFR (MDRD) 9.5 ml/min Glucose 116 H (74-106) mg/dL Calcium 8.5 (8.5-10.1) mg/dL Total Bilirubin 0.3 (0.2-1.0) mg/dL AST 18 (15-37) IU/L ALT 16 (14-63) IU/L Alkaline Phosphatase 71 (46-116) U/L Total Protein 7.9 (6.4-8.2) g/dL Albumin 3.2 L (3.4-5.0) g/dL Globulin 4.7 H (2.6-4.0) g/dL Albumin/Globulin Ratio 0.7 L (0.9-1.6) SARS CoV-2 RNA Rapid MAHI (NEGATIVE) 06/14/20 06/14/20 Range/Units 11:27 12:27 WBC (4.0-11.0) K/uL RBC (4.30-5.90) M/uL Hgb (12.0-16.0) g/dL Hct (36.0-46.0) % MCV (80.0-98.0) fL MCH (27.0-32.0) pg MCHC (31.0-37.0) g/dL RDW Std Deviation (28.0-62.0) fl RDW Coeff of Soraida (11.0-15.0) % Plt Count (150-400) K/uL MPV (7.40-12.00) fL Neut % (Auto) (48.0-80.0) % Lymph % (Auto) (16.0-40.0) % Taylor % (Auto) (0.0-15.0) % Eos % (Auto) (0.0-7.0) % Baso % (Auto) (0.0-1.5) % Neut # (Auto) (1.4-5.7) K/uL Lymph # (Auto) (0.6-2.4) K/uL Taylor # (Auto) (0.0-0.8) K/uL Eos # (Auto) (0.0-0.7) K/uL Baso # (Auto) (0.0-0.1) K/uL Nucleated RBC % /100WBC Nucleated RBCs # K/uL D-Dimer, Quantitative 0.56 H (0.0-0.50) mg/L FEU Lactate (0.20-2.00) mmol/L Sodium (136-145) mmol/L Potassium (3.5-5.1) mmol/L Chloride (98-107) mmol/L Carbon Dioxide (21.0-32.0) mmol/L BUN (7.0-18.0) mg/dL Creatinine (0.6-1.0) mg/dL Est Cr Clr Drug Dosing mL/min Estimated GFR (MDRD) ml/min Glucose (74-106) mg/dL Calcium (8.5-10.1) mg/dL Total Bilirubin (0.2-1.0) mg/dL AST (15-37) IU/L ALT (14-63) IU/L Alkaline Phosphatase (46-116) U/L Total Protein (6.4-8.2) g/dL Albumin (3.4-5.0) g/dL Globulin (2.6-4.0) g/dL Albumin/Globulin Ratio (0.9-1.6) SARS CoV-2 RNA Rapid MAHI POSITIVE H (NEGATIVE) Meds: Medications Generic Name Dose Route Start Last Admin Trade Name Freq PRN Reason Stop Dose Admin Acetaminophen 650 mg 06/14/20 16:06 Tylenol PO Q4H PRN Pain Albuterol 0 gm 06/14/20 16:07 Ventolin Hfa INH Q6H PRN Dyspnea Heparin Sodium (Porcine) 5,000 units 06/14/20 16:00 06/14/20 16:20 Heparin Sodium SUBCUT 5,000 units Q12H GABI Administration Lactated Ringer's 1,000 mls @ 125 mls/hr 06/14/20 16:00 06/14/20 16:53 Ringers, Lactated IV 125 mls/hr Q8H GABI Administration Ceftriaxone Sodium/Dextrose 1 50 mls @ 100 mls/hr 06/14/20 16:30 06/14/20 17:08 gm/ Premix IV 100 mls/hr Q24H GABI Administration Influenza Virus Vaccine 240 mcg 06/16/20 09:00 Fluzone High-Dose Quad 2020-21 IM 06/16/20 09:01 .ONCE ONE Ondansetron HCl 4 mg 06/14/20 16:06 Zofran IVPUSH Q4H PRN Nausea Pneumococcal Polyvalent Vaccine 25 mcg 06/16/20 09:00 Pneumovax 23 IM 06/16/20 09:01 .ONCE ONE Discontinued Medications Generic Name Dose Route Start Last Admin Trade Name Freq PRN Reason Stop Dose Admin Sodium Chloride 1,000 mls @ 999 mls/hr 06/14/20 12:24 06/14/20 12:39 Normal Saline IV 06/14/20 13:24 999 mls/hr STAT ONE Administration Lactated Ringer's 1,000 mls @ 999 mls/hr 06/14/20 16:00 06/14/20 18:44 Ringers, Lactated IV 06/14/20 17:59 999 mls/hr Q1H GABI Administration Ondansetron HCl 4 mg 06/14/20 12:24 06/14/20 12:39 Zofran IVPUSH 06/14/20 12:25 4 mg ONETIME ONE Administration Departure - Departure Time of Disposition: 14:55 Disposition: Admitted As Inpatient 68 Clinical Impression: MARTHA (acute kidney injury), COVID-19, Dehydration - Discharge Information Sepsis Event Note (ED) - Focused Exam Vital Signs: Vital Signs Temp Pulse Resp BP Pulse Ox 06/14/20 14:26 65 125/52 L 96 06/14/20 13:56 67 108/56 L 93 L 06/14/20 12:46 72 107/54 L 96 06/14/20 11:19 98 F 84 20 138/96 H 94 L - My Orders Last 24 Hours: My Active Orders 06/14/20 11:04 EKG 12 Lead [EKG Documentation Completion] [RC] STAT 06/14/20 11:27 CORONAVIRUS COVID-19 PCR PHL Stat 06/14/20 12:29 CAMPYLOBACTER CULT [MREF] Stat OVA & PARASITES BY IMMUNOASSAY [MREF] Stat STOOL CULTURE/SHIGA TOXIN [MREF] Stat 06/14/20 15:55 CULTURE URINE [RM] Stat - Assessment/Plan Last 24 Hours: My Active Orders 06/14/20 11:04 EKG 12 Lead [EKG Documentation Completion] [RC] STAT 06/14/20 11:27 CORONAVIRUS COVID-19 PCR PHL Stat 06/14/20 12:29 CAMPYLOBACTER CULT [MREF] Stat OVA & PARASITES BY IMMUNOASSAY [MREF] Stat STOOL CULTURE/SHIGA TOXIN [MREF] Stat 06/14/20 15:55 CULTURE URINE [RM] Stat
--- NOTE | 2020-06-14 11:54 | PCM.SN.2 ---
- Free Text/Narrative Note: 12-Lead ECG Interpretation Acquired: 11:26 AM Rhythm: Sinus rhythm Rate: 80 bpm [place]: Normal Intervals: Normal Ectopy: None RV Strain: No obvious RV strain pattern. ST Segments/T-Waves: No notable changes Acute Ischemic Changes: None apparent Interpretation: No STEMI
[2020-06-14 12:07] LABS: POTASSIUM,K 3.9 mmol/L (3.5-5.1)
--- NOTE | 2020-06-14 12:12 | CR ---
Indication: Suspected johnson virus Comparison: None available. Technique: Single AP view chest Findings: There is hyperinflation and chronic interstitial change. There is no focal consolidation, effusion, or pneumothorax. The cardiomediastinal silhouette is within normal limits. The bony thorax is grossly intact. Impression: Mild hyperinflation and chronic interstitial changes without dense consolidation. Dictated by Ned Marie MD @ Jun 14 2020 12:09PM Signed by Dr. Ned Marie @ Jun 14 2020 12:11PM
[2020-06-14] MEDS ORDERED: Ondansetron 4 MG/2 ML SDV IVPUSH ONE (12:24)
[2020-06-14] MEDS ORDERED: Sodium Chloride 0.9% 1,000 ML IV ONE (12:24)
--- NOTE | 2020-06-14 15:24 | US ---
INDICATION: Acute renal injury TECHNIQUE: Ultrasound renal and bladder complete. Lang-scale and color Doppler sonographic images were acquired of the kidneys and urinary bladder. COMPARISON: None FINDINGS: Right kidney: 10.5 x 5.1 x 5.7 cm. Left kidney: 9.3 x 5.5 x 6.1 cm. There is demonstration of marked renal cortical thinning and increased cortical echogenicity commencement with likely sequela of medical renal disease. The bladder is surgically absent. There is demonstration of a decompressed neobladder with a catheter. IMPRESSION: No evidence of obstructive uropathy with marked renal cortical thinning and increased echogenicity of the bilateral kidneys commensurate with likely prior medical renal disease. Dictated by Ned Marie MD @ Jun 14 2020 3:19PM Signed by Dr. Ned Marie @ Jun 14 2020 3:23PM
--- NOTE | 2020-06-14 15:45 | PCM.HP.2 ---
H&P History of Present Illness - General Date of Service: 06/14/20 Admit Problem/Dx: Admission Diagnosis/Problem Admission Diagnosis/Problem Acute kidney injury Source of Information: Patient History Limitations: Reports: No Limitations - History of Present Illness Initial Comments - Free Text/Narative: This 62-year-old female with past medical history of bladder cancer status post cystectomy with neobladder placement who straight caths herself presents to the ER with 1 day history of significant watery diarrhea. She reports that her was exposed to coronavirus and tested positive on Friday. She reports she started feeling ill on Friday and had significant diarrhea all night last night and has not been able to take in any fluids except for a small amount of Gatorade. She reports that she has been nauseated and vomiting anything that she already taken orally. She reports that she has not straight catheter self the last several hours as she has not felt the urge like she needs to urinate. She reports she is starting to feel that now after fluid given ER. She reports she has been having some shortness of breath for approximately 6 weeks. She reports that she felt it was more her asthma but had been feeling very rundown. She reports she was taking Benadryl and increased her inhaler use and was starting to feel better over the last few days until this hit. She denies any overt fevers or chills. She reports fatigue and malaise. No neck pain or headache. Denies any chest pain. Reports shortness of breath has significantly improved but is intermittently present. Reports dry cough. No overt abdominal pain but feels as though her stomach is very achy and sore from the significant diarrhea. She denies any blood in her stool. Denies any recent travel or antibiotic use. She reports no tobacco use, recreational drug use and no alcoh ol use. She has no other significant medical history and takes no medications at home on a daily basis besides inhaler for asthma. In the ER leukocytosis noted at 13,000 hemoglobin 11.1 D-dimer elevated 0.56. NA 134 bicarb 16 BUN 60 creatinine 4.6, which is elevated from baseline at around 1.5. Glucose 116 Covid swab positive. Chest x-ray shows hyperinflation with chronic interstitial changes no acute opacities. She was treated with 1 L of fluid in the ER. She has no further diarrhea while in the ER. And no urine since being present in the ER. She will be admitted for COVID-19, MARTHA, d iarrhea, and nausea. PCP Dr. Lee body Pain Score (Numeric/FACES): 4 - Related Data Allergies/Adverse Reactions: Allergies Allergy/AdvReac Type Severity Reaction Status Date / Time No Known Allergies Allergy Verified 06/14/20 11:23 Home Medications: Home Meds Albuterol Sulfate [Albuterol Sulfate Hfa] 1 - 2 puff INH Q6H PRN 06/14/20 [History] Past Medical History HEENT History: Reports: None Cardiovascular History: Reports: None. 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 History: Reports: None Musculoskeletal History: Reports: None Neurological History: Reports: None Psychiatric History: Reports: Anxiety, Depression Endocrine/Metabolic History: Reports: None Insulin Pump Model and Circus Trainer: N/A Hematologic History: Reports: None Immunologic History: Reports: None Oncologic (Cancer) History: Reports: Bladder Dermatologic History: Reports: None - Infectious Disease History Infectious Disease History: Reports: Chicken Pox, Measles, Mumps - Past Surgical History HEENT Surgical History: Reports: Oral Surgery, Tonsillectomy GI Surgical History: Reports: Appendectomy Female Surgical History: Reports: Other (See Below) Other Female Surgeries/Procedures: bladder removal, helder-bladder Musculoskeletal Surgical History: Reports: Other (See Below) Other Musculoskeletal Surgeries/Procedures:: 3 discs in neck ruptured; repaired Oncologic Surgical History: Reports: Other (See Below) Other Oncologic Surgeries/Procedures: bladder removal, helder bladder Social & Family History - Family History Family Medical History: No Pertinent Family History - Tobacco Use Tobacco Use Status *Q: Never Tobacco User - Caffeine Use Caffeine Use: Reports: Coffee - Alcohol Use Alcohol Use History: No - Recreational Drug Use Recreational Drug Use: No - Living Situation & Occupation Living situation: Reports: H&P Review of Systems - Review of Systems: Review Of Systems: See Below General: Reports: Chills, Malaise HEENT: Reports: No Symptoms. Denies: Headaches, Sinus Congestion Pulmonary: Reports: Shortness of Breath (Intermittent but has improved), Cough. Denies: Wheezing, Pleuritic Chest Pain, Sputum Cardiovascular: Reports: No Symptoms. Denies: Chest Pain Gastrointestinal: Reports: Abdominal Pain (Only mild soreness no overt pain or tenderness), Diarrhea, Nausea, Vomiting. Denies: Black Stool, Bloody Stool Genitourinary: Reports: No Symptoms, Retention, Other (No significant urine in the last 24 hours). Denies: Dysuria, Frequency Musculoskeletal: Reports: No Symptoms Skin: Reports: No Symptoms Psychiatric: Reports: No Symptoms Neurological: Reports: No Symptoms Hematologic/Lymphatic: Reports: No Symptoms Immunologic: Reports: No Symptoms Exam - Exam Exam: See Below - Vital Signs Vital Signs: Last Vital Signs Temp 98 F 06/14/20 11: Pulse 65 06/14/20 14:26 Resp 20 06/14/20 11:19 BP 125/52 L 06/14/20 14:26 Pulse Ox 96 06/14/20 14:26 Weight: 86.183 kg - Exam Quality Assessment: DVT Prophylaxis. No: Supplemental Oxygen General: Alert, Oriented, Cooperative HEENT: Conjunctiva Clear. No: Mucosa Moist & [place] Lungs: Clear to Auscultation. No: Normal Respiratory Effort (Intermittent dyspnea with speech.) Cardiovascular: Regular Rate, Regular Rhythm GI/Abdominal Exam: Normal Bowel Sounds, Soft, Non-Tender, No Mass Extremities: Normal Inspection, Normal Range of Motion, Non-Tender, No Pedal Edema Neurological: Cranial Nerves Intact Neuro Extensive - Mental Status: Alert, Oriented x3 Neuro Extensive - Motor, Sensory, Reflexes: CN II-XII Intact Psychiatric: Alert, Normal Affect, Normal Mood - Patient Data Lab Results Last 24 hrs: Laboratory Results - last 24 hr 06/14/20 06/14/20 06/14/20 Range/Units 11:27 11:27 11:27 WBC 13.61 H (4.0-11.0) K/uL RBC 4.20 L (4.30-5.90) M/uL Hgb 11.1 L (12.0-16.0) g/dL Hct 35.4 L (36.0-46.0) % MCV 84.3 (80.0-98.0) fL MCH 26.4 L (27.0-32.0) pg MCHC 31.4 (31.0-37.0) g/dL RDW Std Deviation 47.7 (28.0-62.0) fl RDW Coeff of Soraida 16 H (11.0-15.0) % Plt Count 272 (150-400) K/uL MPV 10.70 (7.40-12.00) fL Neut % (Auto) 87.1 H (48.0-80.0) % Lymph % (Auto) 5.5 L (16.0-40.0) % [place] % (Auto) 7.3 (0.0-15.0) % Eos % (Auto) 0.0 (0.0-7.0) % Baso % (Auto) 0.1 (0.0-1.5) % Neut # (Auto) 11.9 H (1.4-5.7) K/uL Lymph # (Auto) 0.8 (0.6-2.4) K/uL [place] # (Auto) 1.0 H (0.0-0.8) K/uL Eos # (Auto) 0.0 (0.0-0.7) K/uL Baso # (Auto) 0.0 (0.0-0.1) K/uL Nucleated RBC % 0.0 /100WBC Nucleated RBCs # 0 K/uL D-Dimer, Quantitative (0.0-0.50) mg/L FEU Lactate 0.8 (0.20-2.00) mmol/L Sodium 134 L (136-145) mmol/L Potassium 3.9 (3.5-5.1) mmol/L Chloride 101 (98-107) mmol/L Carbon Dioxide 16.0 L (21.0-32.0) mmol/L BUN 60 H (7.0-18.0) mg/dL Creatinine 4.6 H (0.6-1.0) mg/dL Est Cr Clr Drug Dosing 11.81 mL/min Estimated GFR (MDRD) 9.5 ml/min Glucose 116 H (74-106) mg/dL Calcium 8.5 (8.5-10.1) mg/dL Total Bilirubin 0.3 (0.2-1.0) mg/dL AST 18 (15-37) IU/L ALT 16 (14-63) IU/L Alkaline Phosphatase 71 (46-116) U/L Total Protein 7.9 (6.4-8.2) g/dL Albumin 3.2 L (3.4-5.0) g/dL Globulin 4.7 H (2.6-4.0) g/dL Albumin/Globulin Ratio 0.7 L (0.9-1.6) SARS CoV-2 RNA Rapid MAHI (NEGATIVE) 06/14/20 06/14/20 Range/Units 11:27 12:27 WBC (4.0-11.0) K/uL RBC (4.30-5.90) M/uL Hgb (12.0-16.0) g/dL Hct (36.0-46.0) % MCV (80.0-98.0) fL MCH (27.0-32.0) pg MCHC (31.0-37.0) g/dL RDW Std Deviation (28.0-62.0) fl RDW Coeff of Soraida (11.0-15.0) % Plt Count (150-400) K/uL MPV (7.40-12.00) fL Neut % (Auto) (48.0-80.0) % Lymph % (Auto) (16.0-40.0) % [place] % (Auto) (0.0-15.0) % Eos % (Auto) (0.0-7.0) % Baso % (Auto) (0.0-1.5) % Neut # (Auto) (1.4-5.7) K/uL Lymph # (Auto) (0.6-2.4) K/uL [place] # (Auto) (0.0-0.8) K/uL Eos # (Auto) (0.0-0.7) K/uL Baso # (Auto) (0.0-0.1) K/uL Nucleated RBC % /100WBC Nucleated RBCs # K/uL D-Dimer, Quantitative 0.56 H (0.0-0.50) mg/L FEU Lactate (0.20-2.00) mmol/L Sodium (136-145) mmol/L Potassium (3.5-5.1) mmol/L Chloride (98-107) mmol/L Carbon Dioxide (21.0-32.0) mmol/L BUN (7.0-18.0) mg/dL Creatinine (0.6-1.0) mg/dL Est Cr Clr Drug Dosing mL/min Estimated GFR (MDRD) ml/min Glucose (74-106) mg/dL Calcium (8.5-10.1) mg/dL Total Bilirubin (0.2-1.0) mg/dL AST (15-37) IU/L ALT (14-63) IU/L Alkaline Phosphatase (46-116) U/L Total Protein (6.4-8.2) g/dL Albumin (3.4-5.0) g/dL Globulin (2.6-4.0) g/dL Albumin/Globulin Ratio (0.9-1.6) SARS CoV-2 RNA Rapid MAHI POSITIVE H (NEGATIVE) Result Diagrams: 06/14/20 11:27 06/14/20 11:27 Sepsis Event Note - Evaluation Sepsis Screening Result: No Definite Risk - Focused Exam Vital Signs: Vital Signs Temp Pulse Resp BP Pulse Ox 06/14/20 14:26 65 125/52 L 96 06/14/20 13:56 67 108/56 L 93 L 06/14/20 12:46 72 107/54 L 96 06/14/20 11:19 98 F 84 20 138/96 H 94 L - Problem List (1) COVID-19 SNOMED Code(s): 181621560 ICD Code: U07.1 - COVID-19 Status: Acute Current Visit: Yes (2) Dehydration SNOMED Code(s): 93957361 ICD Code: E86.0 - DEHYDRATION Status: Acute Current Visit: Yes (3) MARTHA (acute kidney injury) SNOMED Code(s): 12665377, 84221249 ICD Code: N17.9 - ACUTE KIDNEY FAILURE, UNSPECIFIED Status: Acute Current Visit: Yes (4) Diarrhea SNOMED Code(s): 14965760 ICD Code: R19.7 - DIARRHEA, UNSPECIFIED Status: Acute Current Visit: Yes (5) Hx of bladder cancer SNOMED Code(s): 912055607, 482559690 ICD Code: Z85.51 - PERSONAL HISTORY OF MALIGNANT NEOPLASM OF BLADDER Status: Chronic Current Visit: No (6) Hx of total cystectomy SNOMED Code(s): 506374481 ICD Code: Z98.890 - OTHER SPECIFIED POSTPROCEDURAL STATES Status: Chronic Current Visit: No (7) Iron deficiency anemia SNOMED Code(s): 96117071 ICD Code: D50.9 - IRON DEFICIENCY ANEMIA, UNSPECIFIED Status: Chronic Current Visit: No (8) ATN (acute tubular necrosis) SNOMED Code(s): 82148232 ICD Code: N17.0 - ACUTE KIDNEY FAILURE WITH TUBULAR NECROSIS Status: Acute Current Visit: Yes Problem List Initiated/Reviewed/Updated: Yes Orders Last 24hrs: Active Orders 24 hr Category Date Time Status Admission Status [Patient Status] [ADT] Stat ADT 06/14/20 14:27 Active EKG 12 Lead [EKG Documentation Completion] [RC] STAT Care 06/14/20 11:04 Active Fritz Catheter Insertion [Insert Urinary Catheter] [OM. Care 06/14/20 15:45 Ordered PC] Q24H Urinary Catheter Assessment [RC] ASDIRECTED Care 06/14/20 15:38 Ordered CAMPYLOBACTER CULT [MREF] Stat Lab 06/14/20 12:29 Ordered CORONAVIRUS COVID-19 PCR PHL Stat Lab 06/14/20 11:27 Received CREATININE,URINE RAND [URCHEM] Stat Lab 06/14/20 14:26 Ordered OVA & PARASITES BY IMMUNOASSAY [MREF] Stat Lab 06/14/20 12:29 Ordered SODIUM,URINE RANDOM [URCHEM] Stat Lab 06/14/20 14:26 Ordered STOOL CULTURE/SHIGA TOXIN [MREF] Stat Lab 06/14/20 12:29 Ordered UA RFX TIFFANIE AND CULT IF INDIC [URIN] Stat Lab 06/14/20 11:04 Ordered Assessment/Plan Comment:: This 70-year-old female admitted for MARTHA, Covid 19, diarrhea 1. MARTHA secondary to GI loss with diarrhea and nausea and vomiting -Clear liquid diet advance as tolerated -Retroperitoneal ultrasound obtained no significant findings except for mild cortical thinning and history of medical renal disease. -Baseline creatinine near 1.5 and BUN near high 20s to 30 -Normal saline 125 overnight -Recheck lab work in the morning -Fritz catheter and strict I's and O's to monitor urine output -Avoid nephrotoxic medications -D-dimer likely elevated secondary to Covid and MARTHA low suspicion for PE -Obtain stool studies -FENA obtained 1.23% appears to be ATN likely started as prerenal due to GI loss -UA reveals possible UTI UC pending we will start Rocephin 1 g IV daily 2. COVID-19 -Not hypoxic likely causing GI symptoms -Symptom relief. -Monitor for hypoxia 3. Asthma -No acute exacerbation -Continue as needed inhalers VTE prophylaxis: Heparin CODE STATUS: Full code Dispo: 2 to 3 days - Mortality Measure Prognosis:: Good
[2020-06-14] MEDS ORDERED: Ondansetron 4 MG/2 ML SDV IVPUSH PRN (16:06)
[2020-06-14] MEDS: Heparin Sodium 5,000 Units/ML Vial SUBCUT SCH (16:20)
[2020-06-14] MEDS: Lactated Ringers 1,000 ML IV SCH ×3 (16:20→18:44)
[2020-06-14] MEDS: cefTRIAXone 1 GM in Premix Bag 1 BAG IV SCH (17:08)
[2020-06-14] MEDS: Acetaminophen 325 MG Tab PO PRN (20:42)
[2020-06-14] MEDS: Albuterol HFA 18 Gm Inhaler INH PRN (20:48)
[2020-06-15] MEDS: Lactated Ringers 1,000 ML IV SCH ×3 (00:05→20:23)
[2020-06-15] MEDS: Heparin Sodium 5,000 Units/ML Vial SUBCUT SCH ×2 (05:05→16:00)
[2020-06-15] MEDS: Acetaminophen 325 MG Tab PO PRN ×4 (05:15→22:43)
[2020-06-15 07:18] LABS: CARBON DIOXIDE,CO2 18.3 mmol/L (21.0-32.0); POTASSIUM,K 3.6 mmol/L (3.5-5.1)
--- NOTE | 2020-06-15 07:58 | PCM.PN ---
- General Info Date of Service: 06/15/20 Admission Dx/Problem (Free Text): Admission Diagnosis/Problem Admission Diagnosis/Problem Acute kidney injury Subjective Update: Feeling much improved today. Reports 1 small bowel movement overnight that was liquid. Denies any nausea. Was able to tolerate regular breakfast this morning. No overt shortness of breath. Reports mild cough. No other concerns Functional Status: Reports: Pain Controlled, Tolerating Diet, Ambulating, Urinating - Review of Systems General: Reports: No Symptoms. Denies: Fatigue, Malaise HEENT: Reports: No Symptoms. Denies: Headaches, Visual Changes Pulmonary: Reports: Cough. Denies: Shortness of Breath Cardiovascular: Reports: No Symptoms. Denies: Chest Pain Gastrointestinal: Reports: No Symptoms. Denies: Abdominal Pain, Nausea, Vomiting Genitourinary: Reports: No Symptoms. Denies: Dysuria, Frequency Musculoskeletal: Reports: No Symptoms Skin: Reports: No Symptoms Neurological: Reports: No Symptoms Psychiatric: Reports: No Symptoms - Patient Data Vitals - Most Recent: Last Vital Signs Temp 99.5 F 06/15/20 05:00 Pulse 78 06/15/20 05:00 Resp 16 06/15/20 05:00 BP 109/43 L 06/15/20 05:00 Pulse Ox 92 L 06/15/20 05:00 Weight - Most Recent: 90.129 kg I&O - Last 24 Hours: Intake & Output 06/14/20 06/15/20 06/15/20 22:59 06:59 14:59 Intake Total 2400 Output Total 350 Balance 2050 Lab Results Last 24 Hours: Laboratory Results - last 24 hr 06/14/20 06/14/20 06/14/20 Range/Units 11:27 11:27 11:27 WBC 13.61 H (4.0-11.0) K/uL RBC 4.20 L (4.30-5.90) M/uL Hgb 11.1 L (12.0-16.0) g/dL Hct 35.4 L (36.0-46.0) % MCV 84.3 (80.0-98.0) fL MCH 26.4 L (27.0-32.0) pg MCHC 31.4 (31.0-37.0) g/dL RDW Std Deviation 47.7 (28.0-62.0) fl RDW Coeff of Soraida 16 H (11.0-15.0) % Plt Count 272 (150-400) K/uL MPV 10.70 (7.40-12.00) fL Neut % (Auto) 87.1 H (48.0-80.0) % Lymph % (Auto) 5.5 L (16.0-40.0) % [place] % (Auto) 7.3 (0.0-15.0) % Eos % (Auto) 0.0 (0.0-7.0) % Baso % (Auto) 0.1 (0.0-1.5) % Neut # (Auto) 11.9 H (1.4-5.7) K/uL Lymph # (Auto) 0.8 (0.6-2.4) K/uL [place] # (Auto) 1.0 H (0.0-0.8) K/uL Eos # (Auto) 0.0 (0.0-0.7) K/uL Baso # (Auto) 0.0 (0.0-0.1) K/uL Nucleated RBC % 0.0 /100WBC Nucleated RBCs # 0 K/uL D-Dimer, Quantitative (0.0-0.50) mg/L FEU Lactate 0.8 (0.20-2.00) mmol/L Sodium 134 L (136-145) mmol/L Potassium 3.9 (3.5-5.1) mmol/L Chloride 101 (98-107) mmol/L Carbon Dioxide 16.0 L (21.0-32.0) mmol/L BUN 60 H (7.0-18.0) mg/dL Creatinine 4.6 H (0.6-1.0) mg/dL Est Cr Clr Drug Dosing 11.81 mL/min Estimated GFR (MDRD) 9.5 ml/min Glucose 116 H (74-106) mg/dL Calcium 8.5 (8.5-10.1) mg/dL Total Bilirubin 0.3 (0.2-1.0) mg/dL AST 18 (15-37) IU/L ALT 16 (14-63) IU/L Alkaline Phosphatase 71 (46-116) U/L Total Protein 7.9 (6.4-8.2) g/dL Albumin 3.2 L (3.4-5.0) g/dL Globulin 4.7 H (2.6-4.0) g/dL Albumin/Globulin Ratio 0.7 L (0.9-1.6) Urine Color Urine Appearance Urine pH (5.0-8.0) Ur Specific Chandler (1.001-1.035) Urine Protein (NEGATIVE) mg/dL Urine Glucose (UA) (NEGATIVE) mg/dL Urine Ketones (NEGATIVE) mg/dL Urine Occult Blood (NEGATIVE) Urine Nitrite (NEGATIVE) Urine Bilirubin (NEGATIVE) Urine Urobilinogen (<2.0) EU/dL Ur Leukocyte Esterase (NEGATIVE) Urine RBC (0-2/HPF) Urine WBC (0-5/HPF) Ur Epithelial Cells (NONE-FEW) Amorphous Sediment (NEGATIVE) Urine Bacteria (NEGATIVE) Urine Mucus (NONE-MOD) Urinalysis Comment Ur Random Creatinine mg/dL Ur Random Sodium (40.0-220.0) mmol/L SARS CoV-2 RNA Rapid MAHI (NEGATIVE) 06/14/20 06/14/20 06/14/20 Range/Units 11:27 12:27 15:55 WBC (4.0-11.0) K/uL RBC (4.30-5.90) M/uL Hgb (12.0-16.0) g/dL Hct (36.0-46.0) % MCV (80.0-98.0) fL MCH (27.0-32.0) pg MCHC (31.0-37.0) g/dL RDW Std Deviation (28.0-62.0) fl RDW Coeff of Soraida (11.0-15.0) % Plt Count (150-400) K/uL MPV (7.40-12.00) fL Neut % (Auto) (48.0-80.0) % Lymph % (Auto) (16.0-40.0) % [place] % (Auto) (0.0-15.0) % Eos % (Auto) (0.0-7.0) % Baso % (Auto) (0.0-1.5) % Neut # (Auto) (1.4-5.7) K/uL Lymph # (Auto) (0.6-2.4) K/uL [place] # (Auto) (0.0-0.8) K/uL Eos # (Auto) (0.0-0.7) K/uL Baso # (Auto) (0.0-0.1) K/uL Nucleated RBC % /100WBC Nucleated RBCs # K/uL D-Dimer, Quantitative 0.56 H (0.0-0.50) mg/L FEU Lactate (0.20-2.00) mmol/L Sodium (136-145) mmol/L Potassium (3.5-5.1) mmol/L Chloride (98-107) mmol/L Carbon Dioxide (21.0-32.0) mmol/L BUN (7.0-18.0) mg/dL Creatinine (0.6-1.0) mg/dL Est Cr Clr Drug Dosing mL/min Estimated GFR (MDRD) ml/min Glucose (74-106) mg/dL Calcium (8.5-10.1) mg/dL Total Bilirubin (0.2-1.0) mg/dL AST (15-37) IU/L ALT (14-63) IU/L Alkaline Phosphatase (46-116) U/L Total Protein (6.4-8.2) g/dL Albumin (3.4-5.0) g/dL Globulin (2.6-4.0) g/dL Albumin/Globulin Ratio (0.9-1.6) Urine Color YELLOW Urine Appearance CLEAR Urine pH 6.5 (5.0-8.0) Ur Specific [place] 1.015 (1.001-1.035) Urine Protein 100 H (NEGATIVE) mg/dL Urine Glucose (UA) NEGATIVE (NEGATIVE) mg/dL Urine Ketones NEGATIVE (NEGATIVE) mg/dL Urine Occult Blood SMALL H (NEGATIVE) Urine Nitrite NEGATIVE (NEGATIVE) Urine Bilirubin NEGATIVE (NEGATIVE) Urine Urobilinogen 0.2 (<2.0) EU/dL Ur Leukocyte Esterase LARGE H (NEGATIVE) Urine RBC 2-4 (0-2/HPF) Urine WBC 45-50 (0-5/HPF) Ur Epithelial Cells FEW (NONE-FEW) Amorphous Sediment FEW (NEGATIVE) Urine Bacteria 1+ H (NEGATIVE) Urine Mucus FEW (NONE-MOD) Urinalysis Comment Ur Random Creatinine mg/dL Ur Random Sodium (40.0-220.0) mmol/L SARS CoV-2 RNA Rapid MAHI POSITIVE H (NEGATIVE) 06/14/20 06/15/20 06/15/20 Range/Units 15:55 06:29 06:29 WBC 8.30 (4.0-11.0) K/uL RBC 3.59 L (4.30-5.90) M/uL Hgb 9.3 L (12.0-16.0) g/dL Hct 30.3 L (36.0-46.0) % MCV 84.4 (80.0-98.0) fL MCH 25.9 L (27.0-32.0) pg MCHC 30.7 L (31.0-37.0) g/dL RDW Std Deviation 47.7 (28.0-62.0) fl RDW Coeff of Soraida 15 (11.0-15.0) % Plt Count 221 (150-400) K/uL MPV 11.10 (7.40-12.00) fL Neut % (Auto) 86.6 H (48.0-80.0) % Lymph % (Auto) 5.4 L (16.0-40.0) % Mason % (Auto) 8.0 (0.0-15.0) % Eos % (Auto) 0.0 (0.0-7.0) % Baso % (Auto) 0.0 (0.0-1.5) % Neut # (Auto) 7.2 H (1.4-5.7) K/uL Lymph # (Auto) 0.5 L (0.6-2.4) K/uL Mason # (Auto) 0.7 (0.0-0.8) K/uL Eos # (Auto) 0.0 (0.0-0.7) K/uL Baso # (Auto) 0.0 (0.0-0.1) K/uL Nucleated RBC % 0.0 /100WBC Nucleated RBCs # 0 K/uL D-Dimer, Quantitative (0.0-0.50) mg/L FEU Lactate (0.20-2.00) mmol/L Sodium 135 L (136-145) mmol/L Potassium 3.6 (3.5-5.1) mmol/L Chloride 103 (98-107) mmol/L Carbon Dioxide 18.3 L (21.0-32.0) mmol/L BUN 58 H (7.0-18.0) mg/dL Creatinine 4.5 H (0.6-1.0) mg/dL Est Cr Clr Drug Dosing 12.07 mL/min Estimated GFR (MDRD) 9.7 ml/min Glucose 92 (74-106) mg/dL Calcium 7.7 L (8.5-10.1) mg/dL Total Bilirubin (0.2-1.0) mg/dL AST (15-37) IU/L ALT (14-63) IU/L Alkaline Phosphatase (46-116) U/L Total Protein (6.4-8.2) g/dL Albumin (3.4-5.0) g/dL Globulin (2.6-4.0) g/dL Albumin/Globulin Ratio (0.9-1.6) Urine Color Urine Appearance Urine pH (5.0-8.0) Ur Specific Chandler (1.001-1.035) Urine Protein (NEGATIVE) mg/dL Urine Glucose (UA) (NEGATIVE) mg/dL Urine Ketones (NEGATIVE) mg/dL Urine Occult Blood (NEGATIVE) Urine Nitrite (NEGATIVE) Urine Bilirubin (NEGATIVE) Urine Urobilinogen (<2.0) EU/dL Ur Leukocyte Esterase (NEGATIVE) Urine RBC (0-2/HPF) Urine WBC (0-5/HPF) Ur Epithelial Cells (NONE-FEW) Amorphous Sediment (NEGATIVE) Urine Bacteria (NEGATIVE) Urine Mucus (NONE-MOD) Urinalysis Comment Ur Random Creatinine 136.7 mg/dL Ur Random Sodium 49.0 (40.0-220.0) mmol/L SARS CoV-2 RNA Rapid MAHI (NEGATIVE) Siddhartha Results Last 24 Hours: Microbiology 06/15/20 01:10 C. difficile Antigen & Toxins A,B - Final Stool / Feces Med Orders - Current: Current Medications Acetaminophen (Tylenol) 650 mg PO Q4H PRN PRN Reason: Pain Last Admin: 06/15/20 05:15 Dose: 650 mg Documented by: Albuterol (Ventolin Hfa) 0 gm INH Q6H PRN PRN Reason: Dyspnea Last Admin: 06/14/20 20:48 Dose: 1 puff Documented by: Heparin Sodium (Porcine) (Heparin Sodium) 5,000 units SUBCUT Q12H GABI Last Admin: 06/15/20 05:05 Dose: 5,000 units Documented by: Lactated Ringer's (Ringers, Lactated) 1,000 mls @ 125 mls/hr IV Q8H [facility] Last Admin: 06/15/20 00:05 Dose: 125 mls/hr Documented by: Ceftriaxone Sodium/Dextrose 1 (gm/ Premix) 50 mls @ 100 mls/hr IV Q24H [facility] Last Admin: 06/14/20 17:08 Dose: 100 mls/hr Documented by: Influenza Virus Vaccine (Fluzone High-Dose Quad 2020-) 240 mcg IM .ONCE ONE Stop: 06/16/20 09:01 Ondansetron HCl (Zofran) 4 mg IVPUSH Q4H PRN PRN Reason: Nausea Pneumococcal Polyvalent Vaccine (Pneumovax 23) 25 mcg IM .ONCE ONE Stop: 06/16/20 09:01 Discontinued Medications Sodium Chloride (Normal Saline) 1,000 mls @ 999 mls/hr IV STAT ONE Stop: 06/14/20 13:24 Last Admin: 06/14/20 12:39 Dose: 999 mls/hr Documented by: Lactated Ringer's (Ringers, Lactated) 1,000 mls @ 999 mls/hr IV Q1H [facility] Stop: 06/14/20 17:59 Last Admin: 06/14/20 18:44 Dose: 999 mls/hr Documented by: Ondansetron HCl (Zofran) 4 mg IVPUSH ONETIME ONE Stop: 06/14/20 12:25 Last Admin: 06/14/20 12:39 Dose: 4 mg Documented by: - Exam Quality Assessment: DVT Prophylaxis. No: Supplemental Oxygen General: Alert, Oriented, Cooperative, No Acute Distress Lungs: Clear to Auscultation, Normal Respiratory Effort Cardiovascular: Regular Rate, Regular Rhythm GI/Abdominal Exam: Normal Bowel Sounds, Soft, Non-Tender Extremities: Normal Inspection, Normal Range of Motion, Non-Tender, No Pedal [place] ma Neurological: No New Focal Deficit Psy/Mental Status: Alert, Normal Affect, Normal Mood Sepsis Event Note - Evaluation Sepsis Screening Result: No Definite Risk - Focused Exam Vital Signs: Vital Signs Temp Pulse Resp BP Pulse Ox Pulse Ox 06/15/20 05:00 99.5 F 78 16 109/43 L 92 L 06/15/20 00:00 97.3 F 63 18 100/51 L 95 06/14/20 20:00 98.4 F 81 18 141/53 H 97 97 - Problem List & Annotations (1) COVID-19 SNOMED Code(s): 961871776 Code(s): U07.1 - COVID-19 Status: Acute Current Visit: Yes (2) Dehydration SNOMED Code(s): 71852425 Code(s): E86.0 - DEHYDRATION Status: Acute Current Visit: Yes (3) MARTHA (acute kidney injury) SNOMED Code(s): 19893627, 04180115 Code(s): N17.9 - ACUTE KIDNEY FAILURE, UNSPECIFIED Status: Acute Current Visit: Yes (4) Diarrhea SNOMED Code(s): 22599160 Code(s): R19.7 - DIARRHEA, UNSPECIFIED Status: Acute Current Visit: Yes (5) Hx of bladder cancer SNOMED Code(s): 067278574, 566170494 Code(s): Z85.51 - PERSONAL HISTORY OF MALIGNANT NEOPLASM OF BLADDER Status: Chronic Current Visit: No (6) Hx of total cystectomy SNOMED Code(s): 025873686 Code(s): Z98.890 - OTHER SPECIFIED POSTPROCEDURAL STATES Status: Chronic Current Visit: No (7) Iron deficiency anemia SNOMED Code(s): 56558859 Code(s): D50.9 - IRON DEFICIENCY ANEMIA, UNSPECIFIED Status: Chronic Current Visit: No (8) ATN (acute tubular necrosis) SNOMED Code(s): 33693409 Code(s): N17.0 - ACUTE KIDNEY FAILURE WITH TUBULAR NECROSIS Status: Acute Current Visit: Yes - Problem List Review Problem List Initiated/Reviewed/Updated: Yes - My Orders Last 24 Hours: My Active Orders 06/14/20 15:38 Urinary Catheter Assessment [RC] Q4H 06/14/20 15:45 Fritz Catheter Insertion [Insert Urinary Catheter] [OM.PC] Q24H 06/14/20 15:56 Ambulate [RC] ASDIRECTED May Shower [RC] ASDIRECTED Oxygen Therapy [RC] PRN Up to Chair [RC] ASDIRECTED VTE/DVT Education [RC] PER UNIT ROUTINE Vital Signs [RC] Q4H Resuscitation Status Routine 06/14/20 Dinner Clear Liquid Diet [DIET] Heparin Sodium 5,000 units SUBCUT Q12H Lactated Ringers [Ringers, Lactated] 1,000 ml IV Q8H 06/14/20 16:06 Acetaminophen [TylenoL] 650 mg PO Q4H PRN Ondansetron [Zofran] 4 mg IVPUSH Q4H PRN 06/14/20 16:07 RT Post Treatment Assessment [RC] Click to Edit RT Pre-Treatment Assessment [RC] Click to Edit Albuterol [Ventolin HFA] 0 gm INH Q6H PRN 06/14/20 16:30 cefTRIAXone [Rocephin in Dextrose,Iso-Osm 1 GM/50 ML] 1 gm Premix Bag 1 bag IV Q24H 06/15/20 Breakfast Advance Diet Instructions [DIET] 06/16/20 05:11 BMP [BASIC METABOLIC PANEL,BMP] [CHEM] AM CBC WITH AUTO DIFF [HEME] AM - Plan Plan:: This 70-year-old female admitted for MARTHA, Covid 19, diarrhea 1. MARTHA secondary to GI loss with diarrhea and nausea and vomiting -Tolerating regular diet, AKA stable no worsening overnight. -Output 350 mils overnight. This morning she already had nearly 400 mils in her Fritz bag since 4 AM. -LR 125 -Recheck lab work in the morning -Fritz catheter and strict I's and O's to monitor urine output -Avoid nephrotoxic medications -Obtain stool studies-stool studies pending, C. difficile negative -FENA obtained 1.23% appears to be ATN likely started as prerenal due to GI loss 2. UTI -UA reveals possible UTI UC pending - Rocephin 1 g IV daily 3. COVID-19 -Not hypoxic likely causing GI symptoms -Symptom relief. -Monitor for hypoxia 4. Asthma -No acute exacerbation -Continue as needed inhalers VTE prophylaxis: Heparin CODE STATUS: Full code Dispo: 2 to 3 days
[2020-06-15] MEDS ORDERED: Lactated Ringers 1,000 ML IV ONE (11:16)
[2020-06-15] MEDS: Albuterol HFA 18 Gm Inhaler INH PRN (17:07)
[2020-06-15] MEDS ORDERED: Heparin Sodium 5,000 Units/ML Vial ONE (17:16)
[2020-06-15] MEDS: cefTRIAXone 1 GM in Premix Bag 1 BAG IV SCH (17:51)
[2020-06-16] MEDS: Albuterol HFA 18 Gm Inhaler INH PRN (03:11)
[2020-06-16] MEDS: Lactated Ringers 1,000 ML IV SCH ×4 (03:11→21:17)
[2020-06-16] MEDS: Heparin Sodium 5,000 Units/ML Vial SUBCUT SCH ×2 (03:45→16:01)
[2020-06-16] MEDS: Acetaminophen 325 MG Tab PO PRN ×3 (04:14→15:59)
[2020-06-16 06:20] LABS: CARBON DIOXIDE,CO2 18.8 mmol/L (21.0-32.0); POTASSIUM,K 3.7 mmol/L (3.5-5.1)
--- NOTE | 2020-06-16 07:55 | PCM.PN ---
- General Info Date of Service: 06/16/20 Admission Dx/Problem (Free Text): Admission Diagnosis/Problem Admission Diagnosis/Problem Acute kidney injury Subjective Update: Reports she is feeling much improved today. No chest pain. Reports some shortness of breath and some coughing. Otherwise she is feeling much improved. No abdominal pain eating and drinking normally. - Review of Systems General: Reports: No Symptoms. Denies: Weakness, Fatigue HEENT: Reports: No Symptoms Pulmonary: Reports: Shortness of Breath, Cough, Sputum Cardiovascular: Reports: No Symptoms Gastrointestinal: Reports: No Symptoms. Denies: Abdominal Pain, Nausea, Vomiting Genitourinary: Reports: No Symptoms. Denies: Dysuria, Frequency Musculoskeletal: Reports: No Symptoms Skin: Reports: No Symptoms Neurological: Reports: No Symptoms Psychiatric: Reports: No Symptoms - Patient Data Vitals - Most Recent: Last Vital Signs Temp 99.6 F 06/16/20 04:15 Pulse 60 06/16/20 05:00 Resp 20 06/16/20 05:00 BP 167/62 H 06/16/20 04:15 Pulse Ox 90 L 06/16/20 05:00 Weight - Most Recent: 90.129 kg I&O - Last 24 Hours: Intake & Output 06/15/20 06/16/20 06/16/20 22:59 06:59 14:59 Intake Total 4268 1720 Output Total 3400 750 Balance 868 970 Lab Results Last 24 Hours: Laboratory Results - last 24 hr 06/14/20 06/16/20 06/16/20 Range/Units 11:27 05:23 05:23 WBC 4.18 (4.0-11.0) K/uL RBC 3.33 L (4.30-5.90) M/uL Hgb 8.6 L (12.0-16.0) g/dL Hct 27.6 L (36.0-46.0) % MCV 82.9 (80.0-98.0) fL MCH 25.8 L (27.0-32.0) pg MCHC 31.2 (31.0-37.0) g/dL RDW Std Deviation 47.6 (28.0-62.0) fl RDW Coeff of Soraida 16 H (11.0-15.0) % Plt Count 195 (150-400) K/uL MPV 10.80 (7.40-12.00) fL Neut % (Auto) 80.6 H (48.0-80.0) % Lymph % (Auto) 11.0 L (16.0-40.0) % [place] % (Auto) 8.4 (0.0-15.0) % Eos % (Auto) 0.0 (0.0-7.0) % Baso % (Auto) 0.0 (0.0-1.5) % Neut # (Auto) 3.4 (1.4-5.7) K/uL Lymph # (Auto) 0.5 L (0.6-2.4) K/uL [place] # (Auto) 0.4 (0.0-0.8) K/uL Eos # (Auto) 0.0 (0.0-0.7) K/uL Baso # (Auto) 0.0 (0.0-0.1) K/uL Nucleated RBC % 0.0 /100WBC Nucleated RBCs # 0 K/uL Sodium 137 (136-145) mmol/L Potassium 3.7 (3.5-5.1) mmol/L Chloride 105 (98-107) mmol/L Carbon Dioxide 18.8 L (21.0-32.0) mmol/L BUN 53 H (7.0-18.0) mg/dL Creatinine 4.0 H (0.6-1.0) mg/dL Est Cr Clr Drug Dosing 13.58 mL/min Estimated GFR (MDRD) 11.1 ml/min Glucose 97 (74-106) mg/dL Calcium 7.6 L (8.5-10.1) mg/dL SARS-CoV-2 (PCR) DETECTED H (NOT DETECT) Siddhartha Results Last 24 Hours: Microbiology 06/14/20 15:55 Urine Culture - Final Urine, Clean Catch Klebsiella Pneumoniae 06/15/20 01:10 C. difficile Antigen & Toxins A,B - Final Stool / Feces Med Orders - Current: Current Medications Acetaminophen (Tylenol) 650 mg PO Q4H PRN PRN Reason: Pain Last Admin: 06/16/20 04:14 Dose: 650 mg Documented by: Albuterol (Ventolin Hfa) 0 gm INH Q6H PRN PRN Reason: Dyspnea Last Admin: 06/16/20 03:11 Dose: 2 puff Documented by: Heparin Sodium (Porcine) (Heparin Sodium) 5,000 units SUBCUT Q12H [facility] Last Admin: 06/16/20 03:45 Dose: 5,000 units Documented by: Lactated Ringer's (Ringers, Lactated) 1,000 mls @ 125 mls/hr IV Q8H [facility] Last Admin: 06/16/20 03:11 Dose: 125 mls/hr Documented by: Ceftriaxone Sodium/Dextrose 1 (gm/ Premix) 50 mls @ 100 mls/hr IV Q24H [facility] Last Admin: 06/15/20 17:51 Dose: 100 mls/hr Documented by: Influenza Virus Vaccine (Fluzone High-Dose Quad 2020-) 240 mcg IM .ONCE ONE Stop: 06/16/20 09:01 Ondansetron HCl (Zofran) 4 mg IVPUSH Q4H PRN PRN Reason: Nausea Pneumococcal Polyvalent Vaccine (Pneumovax 23) 25 mcg IM .ONCE ONE Stop: 06/16/20 09:01 Discontinued Medications Heparin Sodium (Porcine) (Heparin Sodium) Confirm Administered Dose 5,000 units .ROUTE .STK-MED ONE Stop: 06/15/20 17:17 Last Admin: 06/15/20 17:51 Dose: 5,000 units Documented by: Sodium Chloride (Normal Saline) 1,000 mls @ 999 mls/hr IV STAT ONE Stop: 06/14/20 13:24 Last Admin: 06/14/20 12:39 Dose: 999 mls/hr Documented by: Lactated Ringer's (Ringers, Lactated) 1,000 mls @ 999 mls/hr IV Q1H [facility] Stop: 06/14/20 17:59 Last Admin: 06/14/20 18:44 Dose: 999 mls/hr Documented by: Lactated Ringer's (Ringers, Lactated) 1,000 mls @ 999 mls/hr IV ONETIME ONE Stop: 06/15/20 12:16 Last Admin: 06/15/20 11:46 Dose: 999 mls/hr Documented by: Ondansetron HCl (Zofran) 4 mg IVPUSH ONETIME ONE Stop: 06/14/20 12:25 Last Admin: 06/14/20 12:39 Dose: 4 mg Documented by: - Exam Quality Assessment: DVT Prophylaxis. No: Supplemental Oxygen General: Alert, Oriented, Cooperative, No Acute Distress Lungs: Clear to Auscultation, Other (Cough). No: Normal Respiratory Effort (Dyspnea) Cardiovascular: Regular Rate, Regular Rhythm GI/Abdominal Exam: Normal Bowel Sounds, Soft, Non-Tender, No Distention Extremities: Normal Inspection, Normal Range of Motion, Non-Tender, No Pedal Edema Neurological: No New Focal Deficit Psy/Mental Status: Alert, Normal Affect, Normal Mood Sepsis Event Note - Evaluation Sepsis Screening Result: No Definite Risk - Focused Exam Vital Signs: Vital Signs Temp Temp Pulse Resp BP Pulse Ox 06/16/20 05:00 60 20 90 L 06/16/20 04:15 99.6 F 71 20 167/62 H 91 L 06/16/20 04:14 99.6 F 06/16/20 02:12 151/62 H 06/16/20 00:02 98.8 F 65 18 91 L 06/15/20 22:43 98.6 F 06/15/20 20:00 99.8 F 79 20 139/51 L 94 L - Problem List & Annotations (1) COVID-19 SNOMED Code(s): 180948785 Code(s): U07.1 - COVID-19 Status: Acute Current Visit: Yes (2) Dehydration SNOMED Code(s): 52533669 Code(s): E86.0 - DEHYDRATION Status: Acute Current Visit: Yes (3) MARTHA (acute kidney injury) SNOMED Code(s): 15264887, 05299831 Code(s): N17.9 - ACUTE KIDNEY FAILURE, UNSPECIFIED Status: Acute Current Visit: Yes (4) Diarrhea SNOMED Code(s): 95951058 Code(s): R19.7 - DIARRHEA, UNSPECIFIED Status: Acute Current Visit: Yes (5) Hx of bladder cancer SNOMED Code(s): 604489972, 311852252 Code(s): Z85.51 - PERSONAL HISTORY OF MALIGNANT NEOPLASM OF BLADDER Status: Chronic Current Visit: No (6) Hx of total cystectomy SNOMED Code(s): 896192211 Code(s): Z98.890 - OTHER SPECIFIED POSTPROCEDURAL STATES Status: Chronic Current Visit: No (7) Iron deficiency anemia SNOMED Code(s): 17077095 Code(s): D50.9 - IRON DEFICIENCY ANEMIA, UNSPECIFIED Status: Chronic Current Visit: No (8) ATN (acute tubular necrosis) SNOMED Code(s): 69292573 Code(s): N17.0 - ACUTE KIDNEY FAILURE WITH TUBULAR NECROSIS Status: Acute Current Visit: Yes - Problem List Review Problem List Initiated/Reviewed/Updated: Yes - Plan Plan:: This 70-year-old female admitted for MARTHA, Covid 19, diarrhea 1. MARTHA secondary to GI loss with diarrhea and nausea and vomiting -Tolerating regular diet, -Good urine output -LR 125 -MARTHA improving BUN 53 creatinine 4.0 -Fritz catheter and strict I's and O's to monitor urine output -Avoid nephrotoxic medications -Obtain stool studies-stool studies pending, C. difficile negative -FENA obtained 1.23% appears to be ATN likely started as prerenal due to GI loss 2. UTI -UC reveals Klebsiella pneumonia -Continue Rocephin 1 g IV daily 3. COVID-19 -Today oxygen saturations consistently 90 to 91% -Start dexamethasone and remdesivir -Encourage I-S 4. Asthma -No acute exacerbation -Continue as needed inhalers VTE prophylaxis: Heparin CODE STATUS: Full code Dispo: 2 to 3 days
[2020-06-16] MEDS ORDERED: Pneumococcal 23-Valent Conjugate Vaccine 0.5 ML Syringe IM ONE (09:00)
[2020-06-16] MEDS ORDERED: FLU Vacc QV2020-21(65YR UP)/PF 240 MCG/0.7 ML Syringe IM ONE (09:00)
[2020-06-16] MEDS ORDERED: Albuterol/Ipratropium 4 GM Inhalation Spray INH PRN (09:53)
[2020-06-16] MEDS: Dexamethasone 4 MG Tab PO SCH (10:04)
[2020-06-16] MEDS: guaiFENesin/Dextromethorphan 100-10 MG/5 ML Soln 10 ML Cup PO PRN ×2 (10:04→19:55)
[2020-06-16] MEDS ORDERED: REMDESIVIR 200 MG in Sodium Chloride 0.9% 250 ML IV ONE (10:40)
[2020-06-16] MEDS: cefTRIAXone 1 GM in Premix Bag 1 BAG IV SCH (16:02)
[2020-06-16] MEDS: Benzonatate 100 MG Cap PO PRN (21:37)
[2020-06-17] MEDS: Lactated Ringers 1,000 ML IV SCH ×4 (01:06→19:54)
[2020-06-17] MEDS: guaiFENesin/Dextromethorphan 100-10 MG/5 ML Soln 10 ML Cup PO PRN ×3 (02:27→19:51)
[2020-06-17] MEDS: Acetaminophen 325 MG Tab PO PRN ×2 (02:27→19:51)
[2020-06-17] MEDS: Albuterol HFA 18 Gm Inhaler INH PRN (02:29)
[2020-06-17] MEDS: Heparin Sodium 5,000 Units/ML Vial SUBCUT SCH ×2 (04:56→16:45)
[2020-06-17] MEDS: Benzonatate 100 MG Cap PO PRN ×2 (06:36→16:47)
[2020-06-17 06:54] LABS: CARBON DIOXIDE,CO2 22.6 mmol/L (21.0-32.0); POTASSIUM,K 4.8 mmol/L (3.5-5.1)
[2020-06-17] MEDS: Dexamethasone 4 MG Tab PO SCH (09:10)
[2020-06-17] MEDS: REMDESIVIR 100 MG in Sodium Chloride 0.9% 100 ML IV SCH (11:21)
--- NOTE | 2020-06-17 12:58 | PCM.PN ---
- General Info Date of Service: 06/17/20 - Review of Systems Systems Review Comment:: feeling better, no fevers, reports cough - Patient Data Vitals - Most Recent: Last Vital Signs Temp 36.4 C 06/17/20 05:23 Pulse 59 L 06/17/20 05:23 Resp 18 06/17/20 05:23 BP 91/55 L 06/17/20 05:23 Pulse Ox 94 L 06/17/20 05:23 Weight - Most Recent: 89.358 kg I&O - Last 24 Hours: Intake & Output 06/16/20 06/17/20 06/17/20 22:59 06:59 14:59 Intake Total 2670 3300 100 Output Total 2680 2800 Balance -10 500 100 Lab Results Last 24 Hours: Laboratory Results - last 24 hr 06/17/20 06/17/20 Range/Units 06:05 06:05 WBC 3.71 L (4.0-11.0) K/uL RBC 3.55 L (4.30-5.90) M/uL Hgb 9.1 L (12.0-16.0) g/dL Hct 29.8 L (36.0-46.0) % MCV 83.9 (80.0-98.0) fL MCH 25.6 L (27.0-32.0) pg MCHC 30.5 L (31.0-37.0) g/dL RDW Std Deviation 48.6 (28.0-62.0) fl RDW Coeff of Soraida 16 H (11.0-15.0) % Plt Count 205 (150-400) K/uL MPV 10.90 (7.40-12.00) fL Neut % (Auto) 79.3 (48.0-80.0) % Lymph % (Auto) 12.1 L (16.0-40.0) % [place] % (Auto) 8.6 (0.0-15.0) % Eos % (Auto) 0.0 (0.0-7.0) % Baso % (Auto) 0.0 (0.0-1.5) % Neut # (Auto) 2.9 (1.4-5.7) K/uL Lymph # (Auto) 0.5 L (0.6-2.4) K/uL [place] # (Auto) 0.3 (0.0-0.8) K/uL Eos # (Auto) 0.0 (0.0-0.7) K/uL Baso # (Auto) 0.0 (0.0-0.1) K/uL Nucleated RBC % 0.0 /100WBC Nucleated RBCs # 0 K/uL Sodium 138 (136-145) mmol/L Potassium 4.8 (3.5-5.1) mmol/L Chloride 106 (98-107) mmol/L Carbon Dioxide 22.6 (21.0-32.0) mmol/L BUN 46 H (7.0-18.0) mg/dL Creatinine 3.2 H (0.6-1.0) mg/dL Est Cr Clr Drug Dosing 16.97 mL/min Estimated GFR (MDRD) 14.4 ml/min Glucose 122 H (74-106) mg/dL Calcium 7.5 L (8.5-10.1) mg/dL Total Bilirubin 0.1 L (0.2-1.0) mg/dL AST 17 (15-37) IU/L ALT 17 (14-63) IU/L Alkaline Phosphatase 74 (46-116) U/L Total Protein 5.9 L (6.4-8.2) g/dL Albumin 2.0 L (3.4-5.0) g/dL Globulin 3.9 (2.6-4.0) g/dL Albumin/Globulin Ratio 0.5 L (0.9-1.6) Siddhartha Results Last 24 Hours: Microbiology 06/15/20 01:10 Stool Culture - Preliminary Stool / Feces Shiga Toxin I & II - Final 06/15/20 01:10 Cryptosporidium/Giardia - Final Stool / Feces 06/14/20 15:55 Urine Culture - Final Urine, Clean Catch Klebsiella Pneumoniae Med Orders - Current: Current Medications Acetaminophen (Tylenol) 650 mg PO Q4H PRN PRN Reason: Pain Last Admin: 06/17/20 02:27 Dose: 650 mg Documented by: Albuterol (Ventolin Hfa) 0 gm INH Q6H PRN PRN Reason: Dyspnea Last Admin: 06/17/20 02:29 Dose: 2 puff Documented by: Albuterol/Ipratropium (Combivent Respimat) 0 gm INH Q4HRRT PRN PRN Reason: Dyspnea Benzonatate (Tessalon Perles) 100 mg PO TID PRN PRN Reason: Cough Last Admin: 06/17/20 06:36 Dose: 100 mg Documented by: Dexamethasone (Dexamethasone) 6 mg PO DAILY [facility] Stop: 06/25/20 09:01 Last Admin: 06/17/20 09:10 Dose: 6 mg Documented by: Guaifenesin/Dextromethorphan (Robitussin Dm) 10 ml PO QID PRN PRN Reason: Cough Last Admin: 06/17/20 02:27 Dose: 10 ml Documented by: Heparin Sodium (Porcine) (Heparin Sodium) 5,000 units SUBCUT Q12H [facility] Last Admin: 06/17/20 04:56 Dose: 5,000 units Documented by: Ceftriaxone Sodium/Dextrose 1 (gm/ Premix) 50 mls @ 100 mls/hr IV Q24H [facility] Last Admin: 06/16/20 16:02 Dose: 100 mls/hr Documented by: Remdesivir 100 mg/ Sodium (Chloride) 100 mls @ 100 mls/hr IV Q24H [facility] Stop: 06/20/20 11:39 Last Admin: 06/17/20 11:21 Dose: 100 mls/hr Documented by: Lactated Ringer's (Ringers, Lactated) 1,000 mls @ 100 mls/hr IV Q10H [facility] Last Admin: 06/17/20 07:50 Dose: 100 mls/hr Documented by: Ondansetron HCl (Zofran) 4 mg IVPUSH Q4H PRN PRN Reason: Nausea Discontinued Medications Heparin Sodium (Porcine) (Heparin Sodium) Confirm Administered Dose 5,000 units .ROUTE .STK-MED ONE Stop: 06/15/20 17:17 Last Admin: 06/15/20 17:51 Dose: 5,000 units Documented by: Sodium Chloride (Normal Saline) 1,000 mls @ 999 mls/hr IV STAT ONE Stop: 06/14/20 13:24 Last Admin: 06/14/20 12:39 Dose: 999 mls/hr Documented by: Lactated Ringer's (Ringers, Lactated) 1,000 mls @ 125 mls/hr IV Q8H [facility] Last Infusion: 06/16/20 14:04 Dose: 100 mls/hr Documented by: Lactated Ringer's (Ringers, Lactated) 1,000 mls @ 999 mls/hr IV Q1H [facility] Stop: 06/14/20 17:59 Last Admin: 06/14/20 18:44 Dose: 999 mls/hr Documented by: Lactated Ringer's (Ringers, Lactated) 1,000 mls @ 999 mls/hr IV ONETIME ONE Stop: 06/15/20 12:16 Last Admin: 06/15/20 11:46 Dose: 999 mls/hr Documented by: Remdesivir 200 mg/ Sodium (Chloride) 250 mls @ 250 mls/hr IV ONETIME ONE Stop: 06/16/20 11:39 Last Admin: 06/16/20 11:09 Dose: 250 mls/hr Documented by: Influenza Virus Vaccine (Fluzone High-Dose Quad ) 240 mcg IM .ONCE ONE Stop: 06/16/20 09:01 Ondansetron HCl (Zofran) 4 mg IVPUSH ONETIME ONE Stop: 06/14/20 12:25 Last Admin: 06/14/20 12:39 Dose: 4 mg Documented by: Pneumococcal Polyvalent Vaccine (Pneumovax 23) 25 mcg IM .ONCE ONE Stop: 06/16/20 09:01 - Exam General: Alert, Oriented Neck: Supple Lungs: Clear to Auscultation, Normal Respiratory Effort Cardiovascular: Regular Rate, Regular Rhythm GI/Abdominal Exam: Soft, Non-Tender, No Distention Extremities: Normal Inspection, Non-Tender Skin: Warm, Dry, Intact Sepsis Event Note - Evaluation Sepsis Screening Result: No Definite Risk - Focused Exam Vital Signs: Vital Signs Temp Pulse Resp BP Pulse Ox 06/17/20 05:23 36.4 C 59 L 18 91/55 L 94 L - Problem List Review Problem List Initiated/Reviewed/Updated: Yes - My Orders Last 24 Hours: My Active Orders 06/18/20 05:11 BASIC METABOLIC PANEL,BMP [CHEM] AM CBC WITH AUTO DIFF [HEME] AM - Plan Plan:: This 70-year-old female admitted for MARTHA, Covid 19, diarrhea 1. MARTHA secondary to GI loss with diarrhea and nausea and vomiting Creatining improving to 3.2, continue gentle hydration 2. UTI -UC reveals Klebsiella pneumonia -Continue Rocephin 1 g IV daily 3. COVID-19 continue dexamethasone and remdesivir -Encourage I-S 4. Asthma -No acute exacerbation -Continue as needed inhalers VTE prophylaxis: Heparin CODE STATUS: Full code Dispo: 2 to 3 days
[2020-06-17] MEDS: cefTRIAXone 1 GM in Premix Bag 1 BAG IV SCH (16:45)
[2020-06-18] MEDS: Benzonatate 100 MG Cap PO PRN ×3 (00:19→16:07)
[2020-06-18] MEDS: Acetaminophen 325 MG Tab PO PRN ×4 (00:19→21:01)
[2020-06-18] MEDS: Heparin Sodium 5,000 Units/ML Vial SUBCUT SCH ×2 (06:14→16:08)
[2020-06-18] MEDS: Lactated Ringers 1,000 ML IV SCH (06:17)
[2020-06-18] MEDS: guaiFENesin/Dextromethorphan 100-10 MG/5 ML Soln 10 ML Cup PO PRN ×2 (06:21→21:00)
[2020-06-18 07:05] LABS: CARBON DIOXIDE,CO2 20.6 mmol/L (21.0-32.0); POTASSIUM,K 4.3 mmol/L (3.5-5.1)
[2020-06-18] MEDS: Dexamethasone 4 MG Tab PO SCH (09:31)
--- NOTE | 2020-06-18 10:05 | PCM.PN ---
- General Info Date of Service: 06/18/20 - Review of Systems Systems Review Comment:: feeling better, shortness of breath has improved - Patient Data Vitals - Most Recent: Last Vital Signs Temp 36.4 C 06/18/20 09:34 Pulse 55 L 06/18/20 09:34 Resp 16 06/18/20 09:34 BP 201/101 H 06/18/20 09:34 Pulse Ox 96 06/18/20 09:34 Weight - Most Recent: 89.358 kg I&O - Last 24 Hours: Intake & Output 06/17/20 06/18/20 06/18/20 22:59 06:59 14:59 Intake Total 3399 450 Output Total 2900 2900 Balance 499 -2450 Lab Results Last 24 Hours: Laboratory Results - last 24 hr 06/18/20 06/18/20 Range/Units 06:20 06:20 WBC 8.06 (4.0-11.0) K/uL RBC 4.43 (4.30-5.90) M/uL Hgb 11.7 L (12.0-16.0) g/dL Hct 37.3 (36.0-46.0) % MCV 84.2 (80.0-98.0) fL MCH 26.4 L (27.0-32.0) pg MCHC 31.4 (31.0-37.0) g/dL RDW Std Deviation 48.6 (28.0-62.0) fl RDW Coeff of Soraida 16 H (11.0-15.0) % Plt Count 311 (150-400) K/uL MPV 11.00 (7.40-12.00) fL Neut % (Auto) 84.2 H (48.0-80.0) % Lymph % (Auto) 11.0 L (16.0-40.0) % [place] % (Auto) 4.7 (0.0-15.0) % Eos % (Auto) 0.0 (0.0-7.0) % Baso % (Auto) 0.1 (0.0-1.5) % Neut # (Auto) 6.8 H (1.4-5.7) K/uL Lymph # (Auto) 0.9 (0.6-2.4) K/uL [place] # (Auto) 0.4 (0.0-0.8) K/uL Eos # (Auto) 0.0 (0.0-0.7) K/uL Baso # (Auto) 0.0 (0.0-0.1) K/uL Nucleated RBC % 0.0 /100WBC Nucleated RBCs # 0 K/uL Sodium 139 (136-145) mmol/L Potassium 4.3 (3.5-5.1) mmol/L Chloride 106 (98-107) mmol/L Carbon Dioxide 20.6 L (21.0-32.0) mmol/L BUN 48 H (7.0-18.0) mg/dL Creatinine 2.6 H (0.6-1.0) mg/dL Est Cr Clr Drug Dosing 20.89 mL/min Estimated GFR (MDRD) 18.3 ml/min Glucose 135 H (74-106) mg/dL Calcium 8.2 L (8.5-10.1) mg/dL Siddhartha Results Last 24 Hours: Microbiology 06/15/20 01:10 Stool Culture - Preliminary Stool / Feces Shiga Toxin I & II - Final Med Orders - Current: Current Medications Acetaminophen (Tylenol) 650 mg PO Q4H PRN PRN Reason: Pain Last Admin: 06/18/20 00:19 Dose: 650 mg Documented by: Albuterol (Ventolin Hfa) 0 gm INH Q6H PRN PRN Reason: Dyspnea Last Admin: 06/17/20 02:29 Dose: 2 puff Documented by: Albuterol/Ipratropium (Combivent Respimat) 0 gm INH Q4HRRT PRN PRN Reason: Dyspnea Benzonatate (Tessalon Perles) 100 mg PO TID PRN PRN Reason: Cough Last Admin: 06/18/20 00:19 Dose: 100 mg Documented by: Dexamethasone (Dexamethasone) 6 mg PO DAILY [facility] Stop: 06/25/20 09:01 Last Admin: 06/18/20 09:31 Dose: 6 mg Documented by: Guaifenesin/Dextromethorphan (Robitussin Dm) 10 ml PO QID PRN PRN Reason: Cough Last Admin: 06/18/20 06:21 Dose: 10 ml Documented by: Heparin Sodium (Porcine) (Heparin Sodium) 5,000 units SUBCUT Q12H [facility] Last Admin: 06/18/20 06:14 Dose: 5,000 units Documented by: Ceftriaxone Sodium/Dextrose 1 (gm/ Premix) 50 mls @ 100 mls/hr IV Q24H [facility] Last Admin: 06/17/20 16:45 Dose: 100 mls/hr Documented by: Remdesivir 100 mg/ Sodium (Chloride) 100 mls @ 100 mls/hr IV Q24H [facility] Stop: 06/20/20 11:39 Last Admin: 06/17/20 11:21 Dose: 100 mls/hr Documented by: Lactated Ringer's (Ringers, Lactated) 1,000 mls @ 100 mls/hr IV ASDIRECTED [facility] Last Admin: 06/18/20 06:17 Dose: 100 mls/hr Documented by: Ondansetron HCl (Zofran) 4 mg IVPUSH Q4H PRN PRN Reason: Nausea Discontinued Medications Heparin Sodium (Porcine) (Heparin Sodium) Confirm Administered Dose 5,000 units .ROUTE .STK-MED ONE Stop: 06/15/20 17:17 Last Admin: 06/15/20 17:51 Dose: 5,000 units Documented by: Sodium Chloride (Normal Saline) 1,000 mls @ 999 mls/hr IV STAT ONE Stop: 06/14/20 13:24 Last Admin: 06/14/20 12:39 Dose: 999 mls/hr Documented by: Lactated Ringer's (Ringers, Lactated) 1,000 mls @ 125 mls/hr IV Q8H [facility] Last Infusion: 06/16/20 14:04 Dose: 100 mls/hr Documented by: Lactated Ringer's (Ringers, Lactated) 1,000 mls @ 999 mls/hr IV Q1H [facility] Stop: 06/14/20 17:59 Last Admin: 06/14/20 18:44 Dose: 999 mls/hr Documented by: Lactated Ringer's (Ringers, Lactated) 1,000 mls @ 999 mls/hr IV ONETIME ONE Stop: 06/15/20 12:16 Last Admin: 06/15/20 11:46 Dose: 999 mls/hr Documented by: Remdesivir 200 mg/ Sodium (Chloride) 250 mls @ 250 mls/hr IV ONETIME ONE Stop: 06/16/20 11:39 Last Admin: 06/16/20 11:09 Dose: 250 mls/hr Documented by: Lactated Ringer's (Ringers, Lactated) 1,000 mls @ 100 mls/hr IV Q10H [facility] Last Admin: 06/17/20 15:18 Dose: Not Given Documented by: Influenza Virus Vaccine (Fluzone High-Dose Quad ) 240 mcg IM .ONCE ONE Stop: 06/16/20 09:01 Ondansetron HCl (Zofran) 4 mg IVPUSH ONETIME ONE Stop: 06/14/20 12:25 Last Admin: 06/14/20 12:39 Dose: 4 mg Documented by: Pneumococcal Polyvalent Vaccine (Pneumovax 23) 25 mcg IM .ONCE ONE Stop: 06/16/20 09:01 - Exam General: Alert, Oriented Lungs: Clear to Auscultation, Normal Respiratory Effort Cardiovascular: Regular Rate, Regular Rhythm GI/Abdominal Exam: Soft, Non-Tender, No Distention Extremities: Non-Tender, No Pedal Edema Skin: Warm, Dry, Intact Sepsis Event Note - Evaluation Sepsis Screening Result: No Definite Risk - Focused Exam Vital Signs: Vital Signs Temp Pulse Resp BP Pulse Ox 06/18/20 09:34 36.4 C 55 L 16 201/101 H 96 06/18/20 00:00 36.4 C 55 L 18 187/81 H 96 - Problem List Review Problem List Initiated/Reviewed/Updated: Yes - My Orders Last 24 Hours: My Active Orders 06/19/20 05:11 COMPREHENSIVE METABOLIC PN,CMP [CHEM] AM - Plan Plan:: This 70-year-old female admitted for MARTHA, Covid 19, diarrhea 1. MARTHA secondary to GI loss with diarrhea and nausea and vomiting Creatinine improving to 2.5, continue gentle hydration 2. UTI -UC reveals Klebsiella pneumonia -Continue Rocephin 1 g IV daily 3. COVID-19 continue dexamethasone and remdesivir -Encourage I-S 4. Asthma -No acute exacerbation -Continue as needed inhalers VTE prophylaxis: Heparin CODE STATUS: Full code Dispo: 2 to 3 days
[2020-06-18] MEDS: REMDESIVIR 100 MG in Sodium Chloride 0.9% 100 ML IV SCH (10:40)
[2020-06-18] MEDS: cefTRIAXone 1 GM in Premix Bag 1 BAG IV SCH (16:09)
[2020-06-19] MEDS: Benzonatate 100 MG Cap PO PRN ×2 (00:30→08:21)
[2020-06-19] MEDS: guaiFENesin/Dextromethorphan 100-10 MG/5 ML Soln 10 ML Cup PO PRN (04:04)
[2020-06-19] MEDS: Heparin Sodium 5,000 Units/ML Vial SUBCUT SCH (04:04)
[2020-06-19 06:55] LABS: CARBON DIOXIDE,CO2 24.3 mmol/L (21.0-32.0)
[2020-06-19] MEDS: Dexamethasone 4 MG Tab PO SCH (09:18)
[2020-06-19] MEDS: Acetaminophen 325 MG Tab PO PRN (09:20)
[2020-06-19] MEDS: Lactated Ringers 1,000 ML IV SCH (09:27)
--- NOTE | 2020-06-19 11:21 | PCM.DCSUM1 ---
Discharge Summary - Hospital Course Brief History: This 62-year-old female with past medical history of bladder cancer status post cystectomy with neobladder placement who straight caths herself presents to the ER with 1 day history of significant watery diarrhea. She reports that her was exposed to coronavirus and tested positive on Friday. She reports she started feeling ill on Friday and had significant diarrhea all night last night and has not been able to take in any fluids except for a small amount of Gatorade. She reports that she has been nauseated and vomiting anything that she already taken orally. She reports that she has not straight catheter self the last several hours as she has not felt the urge like she needs to urinate. She reports she is starting to feel that now after fluid given ER. She reports she has been having some shortness of breath for approximately 6 weeks. She reports that she felt it was more her asthma but had been feeling very rundown. She reports she was taking Benadryl and increased her inhaler use and was starting to feel better over the last few days until this hit. She denies any overt fevers or chills. She reports fatigue and malaise. No neck pain or headache. Denies any chest pain. Reports shortness of breath has significantly improved but is intermittently present. Reports dry cough. No overt abdominal pain but feels as though her stomach is very achy and sore from the significant diarrhea. She denies any blood in her stool. Denies any recent travel or antibiotic use. She reports no tobacco use, recreational drug use and no alcohol use. She has no other significant medical history and takes no medications at home on a daily basis besides inhaler for asthma. In the ER leukocytosis noted at 13,000 hemoglobin 11.1 D-dimer elevated 0.56. NA 134 bicarb 16 BUN 60 creatinine 4.6, which is elevated from baseline at around 1.5. Glucose 116 Covid swab positive. Chest x-ray shows hyperinflation with chronic interstitial changes no acute opacities. She was treated with 1 L of fluid in the ER. She has no further diarrhea while in the ER. And no urine since being present in the ER. She will be admitted for COVID-19, MARTHA, diarrhea, and nausea. PCP Dr. Lee - Discharge Data Discharge Date: 06/19/20 Discharge Disposition: Home, Self-Care 01 Condition: Good - Referral to Home Health Primary Care Physician: Cruz Lee MD - Discharge Diagnosis/Problem(s) (1) COVID-19 SNOMED Code(s): 731389710 ICD Code: U07.1 - COVID-19 Status: Acute Current Visit: Yes (2) Dehydration SNOMED Code(s): 18675698 ICD Code: E86.0 - DEHYDRATION Status: Acute Current Visit: Yes (3) MARTHA (acute kidney injury) SNOMED Code(s): 26360000, 45268550 ICD Code: N17.9 - ACUTE KIDNEY FAILURE, UNSPECIFIED Status: Acute Current Visit: Yes (4) Diarrhea SNOMED Code(s): 54703755 ICD Code: R19.7 - DIARRHEA, UNSPECIFIED Status: Acute Current Visit: Yes (5) Hx of bladder cancer SNOMED Code(s): 292695183, 029323974 ICD Code: Z85.51 - PERSONAL HISTORY OF MALIGNANT NEOPLASM OF BLADDER Status: Chronic Current Visit: No (6) Hx of total cystectomy SNOMED Code(s): 409037364 ICD Code: Z98.890 - OTHER SPECIFIED POSTPROCEDURAL STATES Status: Chronic Current Visit: No (7) Iron deficiency anemia SNOMED Code(s): 85554190 ICD Code: D50.9 - IRON DEFICIENCY ANEMIA, UNSPECIFIED Status: Chronic Current Visit: No (8) ATN (acute tubular necrosis) SNOMED Code(s): 95158818 ICD Code: N17.0 - ACUTE KIDNEY FAILURE WITH TUBULAR NECROSIS Status: Acute Current Visit: Yes - Patient Summary/Data Hospital Course: Admission diagnoses: MARTHA UTI COVID-19 Discharge diagnoses: AKIimproving Klebsiella pneumoniae UTI fully treated COVID-19 Meme was admitted secondary to MARTHA from GI losses. She was treated with IV fluids and monitoring I and O strictly. Creatinine has slowly improved from 4.5-2.3 today. Urine output has been good, but had significant output overnight 6800. Meme is very adamant on going home today. She is eating and drinking well and feels that she can monitor her output at home. We encouraged her to stay at least 1 more day to decrease her fluids and monitor her output but she continues to decline this. She was encouraged to drink plenty of fluids and monitor her output. If she worsens or continues to have a large amount of urine output she should return to PCP or ER quickly. She will have repeat BMP on Friday and will visit the respiratory clinic for follow-up to ensure she is continuing to improve. During her stay she developed respiratory symptoms of COVID-19. She was done on admission with GI symptoms. She was started on remdesivir as well as dexamethasone. She has received 3 days treatment of both. She is feeling much improved respiratory portillo. She will be discharged home with no further medications. She is to continue her inhalers at home as needed for dyspnea and wheezing. She is to return to the ER or clinic if concerns should arise. I did speak with PCP, Dr. Lee, and informed him of lab work to be done this coming Friday to monitor renal function. - Patient Instructions Diet: Regular Diet as Tolerated, Drink 8-10+ Glasses/Day Activity: No Strenuous Activities, Rest and Relax Today Showering/Bathing: May Shower Notify Provider of: Fever, Increased Pain, Swelling and Redness, Drainage, Nausea and/or Vomiting Other/Special Instructions: Needs quick follow up with labwork to monitor kidney function - Discharge Plan *PRESCRIPTION DRUG MONITORING PROGRAM REVIEWED*: Not Applicable *COPY OF PRESCRIPTION DRUG MONITORING REPORT IN PATIENT ARELI: Not Applicable Prescriptions/Med Rec: Albuterol/Ipratropium [Combivent Respimat] 1 puff INH Q4HRRT PRN #1 inhaler PRN Reason: Dyspnea Benzonatate [Tessalon Perle] 100 mg PO TID PRN #30 capsule PRN Reason: Cough Home Medications: Home Meds Albuterol Sulfate [Albuterol Sulfate Hfa] 1 - 2 puff INH Q6H PRN 06/14/20 [History] Acetaminophen [Tylenol] 650 mg PO Q4H PRN tablet 06/19/20 [Rx] Albuterol/Ipratropium [Combivent Respimat] 1 puff INH Q4HRRT PRN #1 inhaler 06/19/20 [Rx] Benzonatate [Tessalon Perle] 100 mg PO TID PRN #30 capsule 06/19/20 [Rx] Oxygen Therapy Mode: Room Air Patient Handouts: COVID-19 Frequently Asked Questions, COVID-19, Albuterol; Ipratropium inhalation aerosol, Benzonatate capsules, Prevent the Spread of COVID-19 if You Are Sick - [facility] Referrals: Cruz Lee MD [Primary Care Provider] - - Discharge Summary/Plan Comment DC Time >30 min.: No - Patient Data Vitals - Most Recent: Last Vital Signs Temp 97.8 F 06/19/20 08:00 Pulse 64 06/19/20 08:00 Resp 18 06/19/20 08:00 BP 184/93 H 06/19/20 08:00 Pulse Ox 92 L 06/19/20 08:00 Weight - Most Recent: 89.358 kg I&O - Last 24 hours: Intake & Output 06/18/20 06/19/20 06/19/20 22:59 06:59 14:59 Intake Total 586 2240 Output Total 950 3150 Balance -364 -910 Lab Results - Last 24 hrs: Laboratory Results - last 24 hr 06/19/20 06/19/20 Range/Units 06:10 06:10 WBC 7.40 (4.0-11.0) K/uL RBC 4.21 L (4.30-5.90) M/uL Hgb 10.9 L (12.0-16.0) g/dL Hct 34.7 L (36.0-46.0) % MCV 82.4 (80.0-98.0) fL MCH 25.9 L (27.0-32.0) pg MCHC 31.4 (31.0-37.0) g/dL RDW Std Deviation 46.8 (28.0-62.0) fl RDW Coeff of Soraida 16 H (11.0-15.0) % Plt Count 347 (150-400) K/uL MPV 10.70 (7.40-12.00) fL Neut % (Auto) 79.1 (48.0-80.0) % Lymph % (Auto) 10.5 L (16.0-40.0) % [place] % (Auto) 10.4 (0.0-15.0) % Eos % (Auto) 0.0 (0.0-7.0) % Baso % (Auto) 0.0 (0.0-1.5) % Neut # (Auto) 5.9 H (1.4-5.7) K/uL Lymph # (Auto) 0.8 (0.6-2.4) K/uL [place] # (Auto) 0.8 (0.0-0.8) K/uL Eos # (Auto) 0.0 (0.0-0.7) K/uL Baso # (Auto) 0.0 (0.0-0.1) K/uL Nucleated RBC % 0.0 /100WBC Nucleated RBCs # 0 K/uL Sodium 138 (136-145) mmol/L Potassium 4.0 (3.5-5.1) mmol/L Chloride 103 (98-107) mmol/L Carbon Dioxide 24.3 (21.0-32.0) mmol/L BUN 52 H (7.0-18.0) mg/dL Creatinine 2.3 H (0.6-1.0) mg/dL Est Cr Clr Drug Dosing 23.61 mL/min Estimated GFR (MDRD) 21.1 ml/min Glucose 126 H (74-106) mg/dL Calcium 7.8 L (8.5-10.1) mg/dL Total Bilirubin 0.2 (0.2-1.0) mg/dL AST 73 H (15-37) IU/L ALT 56 (14-63) IU/L Alkaline Phosphatase 79 (46-116) U/L Total Protein 6.5 (6.4-8.2) g/dL Albumin 2.3 L (3.4-5.0) g/dL Globulin 4.2 H (2.6-4.0) g/dL Albumin/Globulin Ratio 0.6 L (0.9-1.6) Med Orders - Current: Current Medications Acetaminophen (Tylenol) 650 mg PO Q4H PRN PRN Reason: Pain Last Admin: 06/19/20 09:20 Dose: 650 mg Documented by: Albuterol (Ventolin Hfa) 0 gm INH Q6H PRN PRN Reason: Dyspnea Last Admin: 06/17/20 02:29 Dose: 2 puff Documented by: Albuterol/Ipratropium (Combivent Respimat) 0 gm INH Q4HRRT PRN PRN Reason: Dyspnea Benzonatate (Tessalon Perles) 100 mg PO TID PRN PRN Reason: Cough Last Admin: 06/19/20 08:21 Dose: 100 mg Documented by: Dexamethasone (Dexamethasone) 6 mg PO DAILY [facility] Stop: 06/25/20 09:01 Last Admin: 06/19/20 09:18 Dose: 6 mg Documented by: Guaifenesin/Dextromethorphan (Robitussin Dm) 10 ml PO QID PRN PRN Reason: Cough Last Admin: 06/19/20 04:04 Dose: 10 ml Documented by: Heparin Sodium (Porcine) (Heparin Sodium) 5,000 units SUBCUT Q12H [facility] Last Admin: 06/19/20 04:04 Dose: 5,000 units Documented by: Ceftriaxone Sodium/Dextrose 1 (gm/ Premix) 50 mls @ 100 mls/hr IV Q24H [facility] Last Admin: 06/18/20 16:09 Dose: 100 mls/hr Documented by: Remdesivir 100 mg/ Sodium (Chloride) 100 mls @ 100 mls/hr IV Q24H [facility] Stop: 06/20/20 11:39 Last Admin: 06/18/20 10:40 Dose: 100 mls/hr Documented by: Lactated Ringer's (Ringers, Lactated) 1,000 mls @ 100 mls/hr IV ASDIRECTED [facility] Last Admin: 06/19/20 09:27 Dose: 100 mls/hr Documented by: Ondansetron HCl (Zofran) 4 mg IVPUSH Q4H PRN PRN Reason: Nausea Discontinued Medications Heparin Sodium (Porcine) (Heparin Sodium) Confirm Administered Dose 5,000 units .ROUTE .STK-MED ONE Stop: 06/15/20 17:17 Last Admin: 06/15/20 17:51 Dose: 5,000 units Documented by: Sodium Chloride (Normal Saline) 1,000 mls @ 999 mls/hr IV STAT ONE Stop: 06/14/20 13:24 Last Admin: 06/14/20 12:39 Dose: 999 mls/hr Documented by: Lactated Ringer's (Ringers, Lactated) 1,000 mls @ 125 mls/hr IV Q8H [facility] Last Infusion: 06/16/20 14:04 Dose: 100 mls/hr Documented by: Lactated Ringer's (Ringers, Lactated) 1,000 mls @ 999 mls/hr IV Q1H [facility] Stop: 06/14/20 17:59 Last Admin: 06/14/20 18:44 Dose: 999 mls/hr Documented by: Lactated Ringer's (Ringers, Lactated) 1,000 mls @ 999 mls/hr IV ONETIME ONE Stop: 06/15/20 12:16 Last Admin: 06/15/20 11:46 Dose: 999 mls/hr Documented by: Remdesivir 200 mg/ Sodium (Chloride) 250 mls @ 250 mls/hr IV ONETIME ONE Stop: 06/16/20 11:39 Last Admin: 06/16/20 11:09 Dose: 250 mls/hr Documented by: Lactated Ringer's (Ringers, Lactated) 1,000 mls @ 100 mls/hr IV Q10H [facility] Last Admin: 06/17/20 15:18 Dose: Not Given Documented by: Influenza Virus Vaccine (Fluzone High-Dose Quad 2019-) 240 mcg IM .ONCE ONE Stop: 06/16/20 09:01 Ondansetron HCl (Zofran) 4 mg IVPUSH ONETIME ONE Stop: 06/14/20 12:25 Last Admin: 06/14/20 12:39 Dose: 4 mg Documented by: Pneumococcal Polyvalent Vaccine (Pneumovax 23) 25 mcg IM .ONCE ONE Stop: 06/16/20 09:01
[2020-06-19] MEDS: REMDESIVIR 100 MG in Sodium Chloride 0.9% 100 ML IV SCH (11:35)
[2020-06-19] MEDS ORDERED: FLU Vacc QV2020-21(65YR UP)/PF 240 MCG/0.7 ML Syringe IM ONE (13:00)
== END 2020-06-19 13:00 | disposition home or self-care (01) | DRG 177 ==
LOC: MW.ED 10:59 → MW.ICU 14:27 → MW.MS 06-18 13:44
PROVIDERS: ADMIT Student in an Organized Health Care Education/Training Program; ATTEND Student in an Organized Health Care Education/Training Program
PROC: XW033E5 Introduction of Remdesivir Anti-infective into Peripheral Vein, Percutaneous Approach, New Technology Group 5 (ICD-10-PCS; principal; 2020-06-14)
PROC: XW033F5 Introduction of Other New Technology Therapeutic Substance into Peripheral Vein, Percutaneous Approach, New Technology Group 5 (ICD-10-PCS; 2020-06-14)
DX: U07.1 COVID-19 (principal); N17.0 Acute kidney failure with tubular necrosis; N17.9 Acute kidney failure, unspecified; J45.998 Other asthma; Z87.440 Personal history of urinary (tract) infections; N39.0 Urinary tract infection, site not specified; E86.0 Dehydration; R19.7 Diarrhea, unspecified; Z79.899 Other long term (current) drug therapy; D50.9 Iron deficiency anemia, unspecified; B96.1 Klebsiella pneumoniae [K. pneumoniae] as the cause of diseases classified elsewhere; F41.9 Anxiety disorder, unspecified; J45.909 Unspecified asthma, uncomplicated; F32.9 Major depressive disorder, single episode, unspecified; Z90.49 Acquired absence of other specified parts of digestive tract; Z85.51 Personal history of malignant neoplasm of bladder; Z98.890 Other specified postprocedural states; Z90.6 Acquired absence of other parts of urinary tract
CPT/HCPCS: 36415; 51702; 71045; 76770; 80053; 83605; 85025; 85379; 87088; 93005; 96374; 99285; J2405; J7030; U0002 ×2; 80048; 81001; 82570; 84300; 87045; 87046; 87086; 87186; 87324; 87328; 87329; 87449; 87899; 93010; 99222; 99231; 99232; 99238; 99283; A9270-GY; J0696; J1644; J3535-GY; J7050; J7120; J8540

== ENCOUNTER 2021-06-30 03:29 | Observation (INO) | payer MEDICARE, OTHER ==
[2021-06-30] MEDS ORDERED: fentaNYL 50 MCG/ML SDV IVPUSH ONE (04:08)
[2021-06-30] MEDS ORDERED: Dextrose 5%-Lactated Ringers 1,000 ML IV SCH (04:15)
[2021-06-30] MEDS ORDERED: Lactated Ringers 1,000 ML IV SCH (04:15)
[2021-06-30 04:42] LABS: CARBON DIOXIDE,CO2 22.1 mmol/L (21.0-32.0); POTASSIUM,K 4.2 mmol/L (3.5-5.1)
[2021-06-30] MEDS ORDERED: HYDROmorphone 1 MG/ML Syringe IVPUSH ONE (05:24)
--- NOTE | 2021-06-30 05:32 | EDM.PDOC ---
ED HPI GENERAL MEDICAL PROBLEM - General Chief Complaint: Abdominal Pain Stated Complaint: POSSIBLE FOOD POISONING, STOMACH PAIN Time Seen by Provider: 06/30/21 03:47 - History of Present Illness INITIAL COMMENTS - FREE TEXT/NARRATIVE: CHIEF COMPLAINT(S): "Either have the stomach flu or food poisoning." HISTORY OF PRESENT ILLNESS: This is a 71-year-old woman with a past medical history of bladder cancer status post neobladder and history of bowel obstruction who comes to the emergency department with a chief complaint of "either have stomach flu or food poisoning." Patient states that she either has stomach flu or food poisoning because she has been vomiting for the last 2 days. She denies any bilious emesis or hematemesis. She states that anything she tries to drink or eat just comes up as vomit and now she is only vomiting ascitic fluid. She states that she is experiencing abdominal pain in the lower quadrant of her abdomen in a bandlike distribution around. She denies any dysuria, hematuria, vaginal bleeding or vaginal discharge. She states that she is experiencing some distention. She has not been able to tolerate any p.o. pain medication therefore there are no relieving factors the pain is not ex acerbated by anything. She denies any fevers or chills. REVIEW OF SYSTEMS: Constitutional: Denies fever, chills. Eyes: Denies eye pain Ears, Nose, Mouth, & Throat: Denies earache Cardiovascular: Denies chest pain Respiratory: Denies shortness of breath Gastrointestinal: Positive for abdominal pain, nausea, vomiting. Denies diarrhea, hematochezia, hematemesis, bilious emesis, melena Genitourinary: Denies hematuria, dysuria, vaginal bleeding, vaginal discharge Skin:Denies a rash MSK: Denies joint pain Neurological: Denies blurred vision Psychiatric: Denies depression PAST MEDICAL HISTORY: As per history of present illness and as reviewed below otherwise noncontributory. SURGICAL HISTORY: As per history of present illness and as reviewed below otherwise noncontributory. SOCIAL HISTORY: As per history of present illness and as reviewed below otherwise noncontributory. FAMILY HISTORY: As per history of present illness and as reviewed below otherwise noncontributory. EXAMINATION OF ORGAN SYSTEMS/BODY AREAS: Constitutional: Heart rate 104, respiratory rate 18 with an oxygen saturation 97% on room air. Temperature 36.0. Blood pressure is 155/77 General: Middle-aged woman who appears to be in a moderate amount of pain. Psychiatric: Appropriate mood and affect. Eyes: No scleral icterus or conjunctival erythema ENMT: Moist mucous membranes. No pharyngeal erythema Cardiovascular: Regular, rate, and rhythm. No gallops, murmurs, or rubs. Bilateral upper extremity pulses symmetric and intact. No peripheral edema. No JVD. Respiratory: Lungs clear to auscultation bilaterally. No wheezes, rales, or rhonchi. Gastrointestinal: Soft, distended, diffusely tender to palpation. No rebound or guarding. Negative Ward's and McBurney's. Genitourinary: No suprapubic tenderness or mass. Musculoskeletal: Normal range of motion. Skin: No lesions or abrasions. Neurological: Alert, GCS 15 MEDICAL DECISION MAKING AND COURSE IN THE ED WITH INTERPRETATION/REVIEW OF JAZMINE GNOSTIC STUDIES: This is a 71-year-old woman with a past medical history of bladder cancer status post neobladder and history of small bowel obstruction who comes to the emergency department with abdominal pain with distention and vomiting. At this time I am concerned about the possibility of recurred small bowel obstruction. The patient does not have a surgical abdomen. We will provide the patient with 50 mcg of fentanyl. Obtain a CT abdomen pelvis with contrast. Will obtain labs including CBC, INR, lactic acid, and blood cultures. We will hold abx at this time. We will provide the patient with 1 L of D5 LR and 1 L of lactated Ringer's bolus. DDx: Small bowel obstruction, gastroenteritis, colitis, diverticulitis Laboratory: CBC reveals a mild leukocytosis of 11.93 otherwise unremarkable. INR is normal. CMP reveals elevated BUN at 42 and creatinine of 2.9 which is around the patient's baseline otherwise unremarkable. Lipase is normal. Covid is negative. The radiological images were viewed by myself along with reading the report from the radiologist. CT abdomen pelvis without contrast reveals multiple distended small bowel loops measuring up to 4 cm suspicious for small bowel obstruction. Transition point is suggested in the anterior lower abdomen. Otherwise no acute process. After imaging I did reevaluate the patient. She states that her pain had significantly improved. At this time I did discuss the results with the patient. I discussed that I would like to speak with Dr. Mckeon. I contacted Dr. Mckeon who recommended observation admission under medicine service as this is not a surgical patient at this time and he will evaluate the patient while inpatient. I contacted hospitalist Dr. Abreu who accepts the patient for observation admission. I did discuss this with the patient she was amenable to this plan. DISPOSITION: Patient was admitted for observation in stable condition CONDITION: Fair PROCEDURES: None FINAL IMPRESSION(S)/DIAGNOSES: 1. Acute small bowel obstruction Julius Cisse M.D. Abdomen Pain Score (Numeric/FACES): 9 - Related Data Allergies Allergy/AdvReac Type Severity Reaction Status Date / Time No Known Allergies Allergy Verified 06/30/21 03:59 Home Meds: Home Meds Albuterol Sulfate [Albuterol Sulfate Hfa] 1 - 2 puff INH Q6H PRN 06/14/20 [History] Acetaminophen [Tylenol] 650 mg PO Q4H PRN tablet 06/19/20 [Rx] Albuterol/Ipratropium [Combivent Respimat] 1 puff INH Q4HRRT PRN #1 inhaler 05/29 10/14 [Rx] Benzonatate [Tessalon Perle] 100 mg PO TID PRN #30 capsule 06/19/20 [Rx] Past Medical History HEENT History: Reports: None Cardiovascular History: Reports: None Respiratory History: Reports: Asthma Gastrointestinal History: Reports: Bowel Obstruction Genitourinary History: Reports: UTI, Recurrent, Other (See Below) Other Genitourinary History: Hematuria, Helder Bladder FEED MANAGEMENT ADVISOR History: Reports: None Musculoskeletal History: Reports: None Neurological History: Reports: None Psychiatric History: Reports: Anxiety, Depression Endocrine/Metabolic History: Reports: None Insulin Pump Model and Car Examiner: N/A Hematologic History: Reports: None Immunologic History: Reports: None Oncologic (Cancer) History: Reports: Bladder Dermatologic History: Reports: None - Infectious Disease History Infectious Disease History: Reports: Chicken Pox, Measles, Mumps - Past Surgical History HEENT Surgical History: Reports: Oral Surgery, Tonsillectomy GI Surgical History: Reports: Appendectomy Female Surgical History: Reports: Other (See Below) Other Female Surgeries/Procedures: bladder removal, helder-bladder Musculoskeletal Surgical History: Reports: Other (See Below) Other Musculoskeletal Surgeries/Procedures:: 3 discs in neck ruptured; repaired Oncologic Surgical History: Reports: Other (See Below) Other Oncologic Surgeries/Procedures: bladder removal, helder bladder Social & Family History - Family History Family Medical History: No Pertinent Family History - Caffeine Use Caffeine Use: Reports: None - Recreational Drug Use Recreational Drug Use: No - Living Situation & Occupation Living situation: Reports: ED ROS GENERAL - Review of Systems Review Of Systems: See Below ED EXAM, GENERAL - Physical Exam Exam: See Below Course - Vital Signs Last Recorded V/S: Last Vital Signs Temp 36 C L 06/30/21 03:45 Pulse 72 06/30/21 06:22 Resp 18 06/30/21 06:22 BP 165/67 H 06/30/21 06:22 Pulse Ox 95 06/30/21 06:22 - Orders/Labs/Meds Orders: Active Orders 24 hr Category Date Time Status Admission Status [Patient Status] [ADT] Stat ADT 06/30/21 06:26 Active CULTURE BLOOD [BC] Stat Lab 06/30/21 04:14 Received CULTURE BLOOD [BC] Stat Lab 06/30/21 04:38 Received Dextrose 5%-Lactated Ringers 1,000 ml Med 06/30/21 04:15 Active IV ASDIRECTED Lactated Ringers [Ringers, Lactated] 1,000 ml Med 06/30/21 04:15 Active IV ASDIRECTED Lactated Ringers [Ringers, Lactated] 1,000 ml Med 06/30/21 06:30 Active IV ASDIRECTED Blood Culture x2 Reflex Set [OM.PC] Stat Oth 06/30/21 04:07 Ordered Medication Orders Dextrose/Lactated Ringer's (Dextrose 5%-Lactated Ringers) 1,000 mls @ 999 mls/hr IV ASDIRECTED GABI Last Admin: 06/30/21 04:22 Dose: 999 mls/hr Documented by: SEAGMIC Lactated Ringer's (Ringers, Lactated) 1,000 mls @ 999 mls/hr IV ASDIRECTED GABI Last Admin: 06/30/21 04:20 Dose: 999 mls/hr Documented by: SEAGMIC Lactated Ringer's (Ringers, Lactated) 1,000 mls @ 150 mls/hr IV ASDIRECTED [facility] Labs: Laboratory Tests 06/30/21 06/30/21 06/30/21 Range/Units 04:14 04:14 04:14 WBC 11.93 H (4.0-11.0) K/uL RBC 4.64 (4.30-5.90) M/uL Hgb 12.7 (12.0-16.0) g/dL Hct 40.0 (36.0-46.0) % MCV 86.2 (80.0-98.0) fL MCH 27.4 (27.0-32.0) pg MCHC 31.8 (31.0-37.0) g/dL RDW Std Deviation 46.6 (28.0-62.0) fl RDW Coeff of Soraida 15 (11.0-15.0) % Plt Count 394 (150-400) K/uL MPV 11.10 (7.40-12.00) fL Neut % (Auto) 85.5 H (48.0-80.0) % Lymph % (Auto) 6.0 L (16.0-40.0) % Mclean % (Auto) 8.0 (0.0-15.0) % Eos % (Auto) 0.4 (0.0-7.0) % Baso % (Auto) 0.1 (0.0-1.5) % Neut # (Auto) 10.2 H (1.4-5.7) K/uL Lymph # (Auto) 0.7 (0.6-2.4) K/uL Mclean # (Auto) 1.0 H (0.0-0.8) K/uL Eos # (Auto) 0.1 (0.0-0.7) K/uL Baso # (Auto) 0.0 (0.0-0.1) K/uL Nucleated RBC % 0.0 /100WBC Nucleated RBCs # 0 K/uL INR 1.00 Sodium 141 (136-145) mmol/L Potassium 4.2 (3.5-5.1) mmol/L Chloride 105 (98-107) mmol/L Carbon Dioxide 22.1 (21.0-32.0) mmol/L BUN 42 H (7.0-18.0) mg/dL Creatinine 2.9 H (0.6-1.0) mg/dL Est Cr Clr Drug Dosing 18.47 mL/min Estimated GFR (MDRD) 16.1 ml/min Glucose 162 H (74-106) mg/dL Lactic Acid (0.4-2.0) mmol/L Calcium 9.3 (8.5-10.1) mg/dL Magnesium 2.3 (1.8-2.4) mg/dL Total Bilirubin 0.4 (0.2-1.0) mg/dL AST 12 L (15-37) IU/L ALT 19 (14-63) IU/L Alkaline Phosphatase 104 (46-116) U/L Total Protein 7.8 (6.4-8.2) g/dL Albumin 3.5 (3.4-5.0) g/dL Globulin 4.3 H (2.6-4.0) g/dL Albumin/Globulin Ratio 0.8 L (0.9-1.6) Lipase 100 (73-393) U/L SARS-CoV-2 RNA (MAHI) (NEGATIVE) 06/30/21 06/30/21 Range/Units 04:14 04:14 WBC (4.0-11.0) K/uL RBC (4.30-5.90) M/uL Hgb (12.0-16.0) g/dL Hct (36.0-46.0) % MCV (80.0-98.0) fL MCH (27.0-32.0) pg MCHC (31.0-37.0) g/dL RDW Std Deviation (28.0-62.0) fl RDW Coeff of Soraida (11.0-15.0) % Plt Count (150-400) K/uL MPV (7.40-12.00) fL Neut % (Auto) (48.0-80.0) % Lymph % (Auto) (16.0-40.0) % Mclean % (Auto) (0.0-15.0) % Eos % (Auto) (0.0-7.0) % Baso % (Auto) (0.0-1.5) % Neut # (Auto) (1.4-5.7) K/uL Lymph # (Auto) (0.6-2.4) K/uL Mclean # (Auto) (0.0-0.8) K/uL Eos # (Auto) (0.0-0.7) K/uL Baso # (Auto) (0.0-0.1) K/uL Nucleated RBC % /100WBC Nucleated RBCs # K/uL INR Sodium (136-145) mmol/L Potassium (3.5-5.1) mmol/L Chloride (98-107) mmol/L Carbon Dioxide (21.0-32.0) mmol/L BUN (7.0-18.0) mg/dL Creatinine (0.6-1.0) mg/dL Est Cr Clr Drug Dosing mL/min Estimated GFR (MDRD) ml/min Glucose (74-106) mg/dL Lactic Acid 1.3 (0.4-2.0) mmol/L Calcium (8.5-10.1) mg/dL Magnesium (1.8-2.4) mg/dL Total Bilirubin (0.2-1.0) mg/dL AST (15-37) IU/L ALT (14-63) IU/L Alkaline Phosphatase (46-116) U/L Total Protein (6.4-8.2) g/dL Albumin (3.4-5.0) g/dL Globulin (2.6-4.0) g/dL Albumin/Globulin Ratio (0.9-1.6) Lipase (73-393) U/L SARS-CoV-2 RNA (MAHI) NEGATIVE (NEGATIVE) Meds: Medications Generic Name Dose Route Start Last Admin Trade Name Freq PRN Reason Stop Dose Admin Dextrose/Lactated Ringer's 1,000 mls @ 999 mls/hr 06/30/21 04:15 06/30/21 04:22 Dextrose 5%-Lactated Ringers IV 999 mls/hr ASDIRECTED GABI Administration Lactated Ringer's 1,000 mls @ 999 mls/hr 06/30/21 04:15 06/30/21 04:20 Ringers, Lactated IV 999 mls/hr ASDIRECTED GABI Administration Lactated Ringer's 1,000 mls @ 150 mls/hr 06/30/21 06:30 Ringers, Lactated IV ASDIRECTED GABI Discontinued Medications Generic Name Dose Route Start Last Admin Trade Name Freq PRN Reason Stop Dose Admin Fentanyl 50 mcg 06/30/21 04:08 06/30/21 04:20 Fentanyl 50 Mcg/Ml Sdv IVPUSH 06/30/21 04:09 50 mcg ONETIME ONE Administration Hydromorphone HCl 1 mg 06/30/21 05:24 06/30/21 05:29 Hydromorphone 1 Mg/Ml Syringe IVPUSH 06/30/21 05:25 1 mg ONETIME ONE Administration Departure - Departure Time of Disposition: 06:26 Disposition: Refer to Observation Condition: Fair Clinical Impression: Small bowel obstruction - Discharge Information Referrals: PCP,None [Primary Care Provider] - Forms: ED Department Discharge Sepsis Event Note (ED) - Evaluation Sepsis Screening Result: No Definite Risk - Focused Exam Vital Signs: Vital Signs Temp Pulse Resp BP Pulse Ox 06/30/21 06:22 72 18 165/67 H 95 06/30/21 05:34 75 18 194/81 H 94 L 06/30/21 03:45 36 C L 104 H 18 155/77 H 97 - My Orders Last 24 Hours: My Active Orders 06/30/21 04:07 Blood Culture x2 Reflex Set [OM.PC] Stat 06/30/21 04:14 CULTURE BLOOD [BC] Stat 06/30/21 04:15 Dextrose 5%-Lactated Ringers 1,000 ml IV ASDIRECTED Lactated Ringers [Ringers, Lactated] 1,000 ml IV ASDIRECTED 06/30/21 04:38 CULTURE BLOOD [BC] Stat 06/30/21 06:26 Admission Status [Patient Status] [ADT] Stat 06/30/21 06:30 Lactated Ringers [Ringers, Lactated] 1,000 ml IV ASDIRECTED - Assessment/Plan Last 24 Hours: My Active Orders 06/30/21 04:07 Blood Culture x2 Reflex Set [OM.PC] Stat 06/30/21 04:14 CULTURE BLOOD [BC] Stat 06/30/21 04:15 Dextrose 5%-Lactated Ringers 1,000 ml IV ASDIRECTED Lactated Ringers [Ringers, Lactated] 1,000 ml IV ASDIRECTED 06/30/21 04:38 CULTURE BLOOD [BC] Stat 06/30/21 06:26 Admission Status [Patient Status] [ADT] Stat 06/30/21 06:30 Lactated Ringers [Ringers, Lactated] 1,000 ml IV ASDIRECTED
--- NOTE | 2021-06-30 06:18 | CT ---
Indication: Mid abdominal pain, vomiting, distention Technique: Nonenhanced axial CT imaging through the abdomen and pelvis. Sagittal and coronal reconstructions are provided. Comparison: None Findings: There are multiple distended small bowel loops, measuring up to 4 cm, suspicious for small bowel obstruction. Transition point is suggested in the anterior lower abdomen. Small bowel anastomosis is noted in the right lower quadrant. There is no appreciable small bowel thickening or pneumatosis. There is no pneumoperitoneum. The appendix is not visualized. There is mild distention of the proximal colon with stool. There is no appreciable colonic wall thickening. There is no significant mesenteric edema. There is evidence of prior cystectomy with neobladder. There is no hydronephrosis. The kidneys are moderately atrophic. Prominent extrarenal pelvis is noted on the left. There are no renal or ureteral stones. There is a 2 cm hyperdense stone in the gallbladder near the neck. There is no appreciable gallbladder wall thickening or surrounding edema. There is unremarkable noncontrast appearance of the liver, spleen, pancreas, and adrenal glands. There is no abdominal lymphadenopathy. The abdominal aorta is normal in caliber. Degenerative changes are noted in the lumbar spine. The included lung bases are clear. Impression: 1. Multiple distended small bowel loops, concerning for small bowel obstruction. Transition point likely resides in the anterior lower abdomen. No evidence of bowel ischemia or perforation. 2. Cholelithiasis without findings to suggest cholecystitis. Please note that all CT scans at this facility use dose modulation, iterative reconstruction, and/or weight-based dosing when appropriate to reduce radiation dose to as low as reasonably achievable. Dictated by Kostas Cohen MD @ 06/30/2021 6:16:30 AM (Electronically Signed)
[2021-06-30] MEDS: Lactated Ringers 1,000 ML IV SCH ×3 (06:56→21:37)
--- NOTE | 2021-06-30 08:37 | PCM.HP.2 ---
<Misha Horvath - Last Filed: 06/30/21 14:49> H&P History of Present Illness - General Date of Service: 06/30/21 Admit Problem/Dx: Admission Diagnosis/Problem Admission Diagnosis/Problem Small bowel obstruction - History of Present Illness Initial Comments - Free Text/Narative: The patient is a 71-year-old female, on day 1 of service, with a significant past medical history of bladder cancer and multiple abdominal surgeries with removal of portions of her bladder requiring self-catheterization for urination purposes, and recurrent UTIs, who was admitted to the medical floor due to a small bowel obstruction. Upon interview with the patient today she admits that since last she has had nonbilious and nonbloody vomiting, constipation, and slight abdominal discomfort in her lower regions bilaterally but more prominent in the left lower quadrant. Her last bowel movem ent was also on and since then she has had the inability to pass gas or defecate. She denies any heartburn, indigestion, chest pain, diaphoresis, or issues with her urination. She has no known drug allergies. In regards to her social history she denies smoking, recreational drug use, and alcohol consumption. Her family history is noncontributory. On CBC, her white blood cell count is 11.93, hemoglobin is 12.7, hematocrit is 40.0, and platelet count is 394. On CMP, her sodium is 141, potassium is 4.2, chloride is 105, carbon dioxide 22.1, BUN is 42, creatinine is 2.9. On CT of the abdomen pelvis with no contrast, there is multiple distended small bowel loops indicative of a small bowel obstruction In the emergency department the patient had 2 blood cultures drawn which will be sent for analysis, 2 lactated Ringer's 1000 mL boluses, she received fentanyl and hydromorphone for analgesia, and had the above tests completed including a CBC, CMP, and CT of the abdomen and pelvis without contrast. 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 Musculoskeletal History: Reports: None Neurological History: Reports: None Psychiatric History: Reports: Anxiety, Depression Endocrine/Metabolic History: Reports: None Insulin Pump Model and Tax Auditor: N/A Hematologic History: Reports: None Immunologic History: Reports: None Oncologic (Cancer) History: Reports: Bladder Dermatologic History: Reports: None - Infectious Disease History Infectious Disease History: Reports: Chicken Pox, Measles, Mumps - Past Surgical History HEENT Surgical History: Reports: Oral Surgery, Tonsillectomy GI Surgical History: Reports: Appendectomy Female Surgical History: Reports: Other (See Below) Other Female Surgeries/Procedures: bladder removal, helder-bladder Musculoskeletal Surgical History: Reports: Other (See Below) Other Musculoskeletal Surgeries/Procedures:: 3 discs in neck ruptured; repaired Oncologic Surgical History: Reports: Other (See Below) Other Oncologic Surgeries/Procedures: bladder removal, helder bladder Social & Family History - Family History Family Medical History: No Pertinent Family History - Tobacco Use Tobacco Use Status *Q: Never Tobacco User Second Hand Smoke Exposure: No - Caffeine Use Caffeine Use: Reports: Soda - Recreational Drug Use Recreational Drug Use: No - Living Situation & Occupation Living situation: Reports: H&P Review of Systems - Review of Systems: Review Of Systems: See Below General: Reports: Fatigue. Denies: Fever, Chills HEENT: Denies: Headaches, Sore Throat Pulmonary: Denies: Shortness of Breath, Cough Cardiovascular: Denies: Chest Pain, Palpitations Gastrointestinal: Reports: Abdominal Pain, Constipation, Nausea, Vomiting Genitourinary: Denies: Dysuria Exam - Exam Exam: See Below - Vital Signs Vital Signs: Last Vital Signs Temp 97.2 F 06/30/21 06:58 Pulse 85 06/30/21 06:58 Resp 16 06/30/21 06:58 BP 194/102 H 06/30/21 06:58 Pulse Ox 96 06/30/21 06:58 Weight: 209 lb 11.2 oz - Exam General: Alert, Oriented, Cooperative HEENT: Mucosa Moist & Vesper Neck: Trachea Midline Lungs: Clear to Auscultation, Normal Respiratory Effort Cardiovascular: Regular Rate, Regular Rhythm GI/Abdominal Exam: Tender - Patient Data Lab Results Last 24 hrs: Laboratory Results - last 24 hr 06/30/21 06/30/21 06/30/21 Range/Units 04:14 04:14 04:14 WBC 11.93 H (4.0-11.0) K/uL RBC 4.64 (4.30-5.90) M/uL Hgb 12.7 (12.0-16.0) g/dL Hct 40.0 (36.0-46.0) % MCV 86.2 (80.0-98.0) fL MCH 27.4 (27.0-32.0) pg MCHC 31.8 (31.0-37.0) g/dL RDW Std Deviation 46.6 (28.0-62.0) fl RDW Coeff of Soraida 15 (11.0-15.0) % Plt Count 394 (150-400) K/uL MPV 11.10 (7.40-12.00) fL Neut % (Auto) 85.5 H (48.0-80.0) % Lymph % (Auto) 6.0 L (16.0-40.0) % [place] % (Auto) 8.0 (0.0-15.0) % Eos % (Auto) 0.4 (0.0-7.0) % Baso % (Auto) 0.1 (0.0-1.5) % Neut # (Auto) 10.2 H (1.4-5.7) K/uL Lymph # (Auto) 0.7 (0.6-2.4) K/uL [place] # (Auto) 1.0 H (0.0-0.8) K/uL Eos # (Auto) 0.1 (0.0-0.7) K/uL Baso # (Auto) 0.0 (0.0-0.1) K/uL Nucleated RBC % 0.0 /100WBC Nucleated RBCs # 0 K/uL INR 1.00 Sodium 141 (136-145) mmol/L Potassium 4.2 (3.5-5.1) mmol/L Chloride 105 (98-107) mmol/L Carbon Dioxide 22.1 (21.0-32.0) mmol/L BUN 42 H (7.0-18.0) mg/dL Creatinine 2.9 H (0.6-1.0) mg/dL Est Cr Clr Drug Dosing 18.47 mL/min Estimated GFR (MDRD) 16.1 ml/min Glucose 162 H (74-106) mg/dL Lactic Acid (0.4-2.0) mmol/L Calcium 9.3 (8.5-10.1) mg/dL Magnesium 2.3 (1.8-2.4) mg/dL Total Bilirubin 0.4 (0.2-1.0) mg/dL AST 12 L (15-37) IU/L ALT 19 (14-63) IU/L Alkaline Phosphatase 104 (46-116) U/L Total Protein 7.8 (6.4-8.2) g/dL Albumin 3.5 (3.4-5.0) g/dL Globulin 4.3 H (2.6-4.0) g/dL Albumin/Globulin Ratio 0.8 L (0.9-1.6) Lipase 100 (73-393) U/L SARS-CoV-2 RNA (MAHI) (NEGATIVE) 06/30/21 06/30/21 Range/Units 04:14 04:14 WBC (4.0-11.0) K/uL RBC (4.30-5.90) M/uL Hgb (12.0-16.0) g/dL Hct (36.0-46.0) % MCV (80.0-98.0) fL MCH (27.0-32.0) pg MCHC (31.0-37.0) g/dL RDW Std Deviation (28.0-62.0) fl RDW Coeff of Soraida (11.0-15.0) % Plt Count (150-400) K/uL MPV (7.40-12.00) fL Neut % (Auto) (48.0-80.0) % Lymph % (Auto) (16.0-40.0) % [place] % (Auto) (0.0-15.0) % Eos % (Auto) (0.0-7.0) % Baso % (Auto) (0.0-1.5) % Neut # (Auto) (1.4-5.7) K/uL Lymph # (Auto) (0.6-2.4) K/uL [place] # (Auto) (0.0-0.8) K/uL Eos # (Auto) (0.0-0.7) K/uL Baso # (Auto) (0.0-0.1) K/uL Nucleated RBC % /100WBC Nucleated RBCs # K/uL INR Sodium (136-145) mmol/L Potassium (3.5-5.1) mmol/L Chloride (98-107) mmol/L Carbon Dioxide (21.0-32.0) mmol/L BUN (7.0-18.0) mg/dL Creatinine (0.6-1.0) mg/dL Est Cr Clr Drug Dosing mL/min Estimated GFR (MDRD) ml/min Glucose (74-106) mg/dL Lactic Acid 1.3 (0.4-2.0) mmol/L Calcium (8.5-10.1) mg/dL Magnesium (1.8-2.4) mg/dL Total Bilirubin (0.2-1.0) mg/dL AST (15-37) IU/L ALT (14-63) IU/L Alkaline Phosphatase (46-116) U/L Total Protein (6.4-8.2) g/dL Albumin (3.4-5.0) g/dL Globulin (2.6-4.0) g/dL Albumin/Globulin Ratio (0.9-1.6) Lipase (73-393) U/L SARS-CoV-2 RNA (MAHI) NEGATIVE (NEGATIVE) Result Diagrams: 06/30/21 04:14 06/30/21 04:14 Sepsis Event Note - Evaluation Sepsis Screening Result: No Definite Risk - Focused Exam Vital Signs: Vital Signs Temp Pulse Resp BP Pulse Ox 06/30/21 06:58 97.2 F 85 16 194/102 H 96 06/30/21 06:22 72 18 165/67 H 95 06/30/21 05:34 75 18 194/81 H 94 L 06/30/21 03:45 96.8 F L 104 H 18 155/77 H 97 - Problem List (1) Small bowel obstruction SNOMED Code(s): 380901155 ICD Code: K56.609 - UNSP INTESTNL OBST, UNSP TO PARTIAL VERSUS COMPLETE OBST Status: Acute Priority: High Current Visit: Yes (2) MARTHA (acute kidney injury) SNOMED Code(s): 08940889, 65927823 ICD Code: N17.9 - ACUTE KIDNEY FAILURE, UNSPECIFIED Status: Acute Current Visit: No Problem List Initiated/Reviewed/Updated: Yes Orders Last 24hrs: Active Orders 24 hr Category Date Time Status Admission Status [Patient Status] [ADT] Stat ADT 06/30/21 06:26 Active Notify Provider Consults [RC] ASDIRECTED Care 06/30/21 06:33 Active Consult to Physician [CONS] Stat Cons 06/30/21 06:32 Active CULTURE BLOOD [BC] Stat Lab 06/30/21 04:14 Received CULTURE BLOOD [BC] Stat Lab 06/30/21 04:38 Received Dextrose 5%-Lactated Ringers 1,000 ml Med 06/30/21 04:15 Active IV ASDIRECTED Lactated Ringers [Ringers, Lactated] 1,000 ml Med 06/30/21 04:15 Active IV ASDIRECTED Lactated Ringers [Ringers, Lactated] 1,000 ml Med 06/30/21 06:30 Active IV ASDIRECTED Blood Culture x2 Reflex Set [OM.PC] Stat Oth 06/30/21 04:07 Ordered Medication Orders Dextrose/Lactated Ringer's (Dextrose 5%-Lactated Ringers) 1,000 mls @ 999 mls/hr IV ASDIRECTED [facility] Last Admin: 06/30/21 04:22 Dose: 999 mls/hr Documented by: SEAGMIC Lactated Ringer's (Ringers, Lactated) 1,000 mls @ 999 mls/hr IV ASDIRECTED [facility] Last Admin: 06/30/21 04:20 Dose: 999 mls/hr Documented by: SEAGMIC Lactated Ringer's (Ringers, Lactated) 1,000 mls @ 150 mls/hr IV ASDIRECTED [facility] Last Admin: 06/30/21 06:56 Dose: 150 mls/hr Documented by: SEAGMIC Assessment/Plan Comment:: Admit the patient to the medical floor, vitals per unit routine, activity up ad filomena., nothing per oral, DVT prophylaxis with Lovenox 40 mg once a day subcutaneously, GI prophylaxis with pantoprazole 40 mg once a day per IV route, the patient is full code 1. Small bowel obstruction -Dr. Simon Mckeon, surgeon at [facility], has seen the patient and we will continue to follow his recommendations moving forward due to his vast experience with such cases -The patient is currently nothing per oral, and at this time NG tube and surgery is not needed -Heated pillows on the abdomen helped the patient's pain and we will continue to provide this -For additional pain measures, the patient has Dilaudid on board -For vomiting, Zofran per IV route is on board -Monitor the patient through daily labs 2. Acute kidney injury -The patient has received multiple lactated Ringer boluses -We will continue to monitor MARTHA through daily CMP <Jonathon Abreu - Last Filed: 07/01/21 16:20> H&P History of Present Illness - General Admit Problem/Dx: Admission Diagnosis/Problem Admission Diagnosis/Problem Small bowel obstruction Exam - Vital Signs Vital Signs: Last Vital Signs Temp 97.8 F 07/01/21 13:43 Pulse 62 07/01/21 13:43 Resp 16 07/01/21 13:43 BP 157/69 H 07/01/21 13:43 Pulse Ox 95 07/01/21 13:43 - Patient Data Lab Results Last 24 hrs: Laboratory Results - last 24 hr 07/01/21 07/01/21 Range/Units 06:59 06:59 WBC 5.12 (4.0-11.0) K/uL RBC 3.58 L (4.30-5.90) M/uL Hgb 9.7 L (12.0-16.0) g/dL Hct 31.5 L (36.0-46.0) % MCV 88.0 (80.0-98.0) fL MCH 27.1 (27.0-32.0) pg MCHC 30.8 L (31.0-37.0) g/dL RDW Std Deviation 48.5 (28.0-62.0) fl RDW Coeff of Soraida 15 (11.0-15.0) % Plt Count 241 (150-400) K/uL MPV 11.10 (7.40-12.00) fL Neut % (Auto) 62.0 (48.0-80.0) % Lymph % (Auto) 24.2 (16.0-40.0) % [place] % (Auto) 10.7 (0.0-15.0) % Eos % (Auto) 2.9 (0.0-7.0) % Baso % (Auto) 0.2 (0.0-1.5) % Neut # (Auto) 3.2 (1.4-5.7) K/uL Lymph # (Auto) 1.2 (0.6-2.4) K/uL [place] # (Auto) 0.6 (0.0-0.8) K/uL Eos # (Auto) 0.2 (0.0-0.7) K/uL Baso # (Auto) 0.0 (0.0-0.1) K/uL Nucleated RBC % 0.0 /100WBC Nucleated RBCs # 0 K/uL Sodium 140 (136-145) mmol/L Potassium 4.3 (3.5-5.1) mmol/L Chloride 107 (98-107) mmol/L Carbon Dioxide 24.4 (21.0-32.0) mmol/L BUN 37 H (7.0-18.0) mg/dL Creatinine 2.4 H (0.6-1.0) mg/dL Est Cr Clr Drug Dosing 22.32 mL/min Estimated GFR (MDRD) 20.0 ml/min Glucose 74 (74-106) mg/dL Calcium 7.8 L (8.5-10.1) mg/dL Result Diagrams: 07/01/21 06:59 07/01/21 06:59 Siddhartha Results Last 24 hrs: Microbiology 06/30/21 04:38 Aerobic Blood Culture - Preliminary Blood - Venous NO GROWTH AFTER 1 DAY Anaerobic Blood Culture - Preliminary NO GROWTH AFTER 1 DAY 06/30/21 04:14 Aerobic Blood Culture - Preliminary Blood - Venous - Lab Draw NO GROWTH AFTER 1 DAY Anaerobic Blood Culture - Preliminary NO GROWTH AFTER 1 DAY Sepsis Event Note - Focused Exam Vital Signs: Vital Signs Temp Pulse Resp BP Pulse Ox 07/01/21 13:43 97.8 F 62 16 157/69 H 95 07/01/21 07:50 97.6 F 58 L 18 145/67 H 95 - Problem List (1) Obesity (BMI 30-39.9) SNOMED Code(s): 887344579, 133740256 ICD Code: E66.9 - OBESITY, UNSPECIFIED Status: Acute Current Visit: Yes (2) Small bowel obstruction SNOMED Code(s): 600393020 ICD Code: K56.609 - UNSP INTESTNL OBST, UNSP TO PARTIAL VERSUS COMPLETE OBST Status: Acute Priority: High Current Visit: Yes (3) MARTHA (acute kidney injury) SNOMED Code(s): 40693932, 24952941 ICD Code: N17.9 - ACUTE KIDNEY FAILURE, UNSPECIFIED Status: Acute Current Visit: No Orders Last 24hrs: Active Orders 24 hr Category Date Time Status Communication Order [RC] ROUTINE Care 07/01/21 09:50 Active BMP [BASIC METABOLIC PANEL,BMP] [CHEM] AM Lab 07/02/21 05:11 Ordered BMP [BASIC METABOLIC PANEL,BMP] [CHEM] AM Lab 07/03/21 05:11 Ordered CBC WITH AUTO DIFF [HEME] AM Lab 07/02/21 05:11 Ordered CBC WITH AUTO DIFF [HEME] AM Lab 07/03/21 05:11 Ordered bisacodyL [Dulcolax] Med 07/01/21 16:08 Active 10 mg RECTAL DAILY PRN Medication Orders Bisacodyl (Bisacodyl 10 Mg Supp) 10 mg RECTAL DAILY PRN PRN Reason: Constipation Enoxaparin Sodium (Enoxaparin 30 Mg/0.3 Ml Syringe) 30 mg SUBCUT DAILY [facility] Last Admin: 07/01/21 08:13 Dose: 30 mg Documented by: Admin: 06/30/21 10:23 Dose: 30 mg Documented by: ZAINAB Hydromorphone HCl (Hydromorphone 1 Mg/Ml Syringe) 1 mg IVPUSH Q4H PRN PRN Reason: Abdominal Pain Last Admin: 07/01/21 16:02 Dose: 1 mg Documented by: Admin: 07/01/21 08:13 Dose: 1 mg Documented by: Admin: 07/01/21 02:47 Dose: 1 mg Documented by: Admin: 06/30/21 21:38 Dose: 1 mg Documented by: Admin: 06/30/21 15:35 Dose: 1 mg Documented by: Admin: 06/30/21 10:23 Dose: 1 mg Documented by: ZAINAB Dextrose/Lactated Ringer's (Dextrose 5%-Lactated Ringers) 1,000 mls @ 999 mls/hr IV ASDIRECTED [facility] Last Admin: 06/30/21 04:22 Dose: 999 mls/hr Documented by: ALYX Lactated Ringer's (Ringers, Lactated) 1,000 mls @ 999 mls/hr IV ASDIRECTED [facility] Last Admin: 06/30/21 04:20 Dose: 999 mls/hr Documented by: ALYX Lactated Ringer's (Ringers, Lactated) 1,000 mls @ 150 mls/hr IV ASDIRECTED [facility] Last Admin: 07/01/21 12:19 Dose: 150 mls/hr Documented by: Infusion: 07/01/21 11:23 Dose: 150 mls/hr Documented by: Admin: 07/01/21 04:42 Dose: 150 mls/hr Documented by: Infusion: 07/01/21 04:18 Dose: 150 mls/hr Documented by: Admin: 06/30/21 21:37 Dose: 150 mls/hr Documented by: Infusion: 06/30/21 21:37 Dose: 150 mls/hr Documented by: Admin: 06/30/21 15:10 Dose: 150 mls/hr Documented by: Infusion: 06/30/21 13:37 Dose: 150 mls/hr Documented by: Admin: 06/30/21 06:56 Dose: 150 mls/hr Documented by: ALYX Ondansetron HCl (Ondansetron 4 Mg/2 Ml Sdv) 4 mg IVPUSH Q4H PRN PRN Reason: Vomiting Last Admin: 06/30/21 15:34 Dose: 4 mg Documented by: ZAINAB Pantoprazole Sodium (Pantoprazole 40 Mg/10 Ml Syringe) 40 mg IVPUSH DAILY [facility] Last Admin: 07/01/21 08:13 Dose: 40 mg Documented by: Admin: 06/30/21 10:23 Dose: 40 mg Documented by: ZAINAB Assessment/Plan Comment:: Small bowel obstruction- likely due to adhesions. Continue npo status General surgery is following along. pain and nausea control Acute kidney injury cr is trending down. will continue with hydration. Repeat bun/cr in am. DVT prophylaxis SQ lovenox Morbid obesity life style modification. Full code status.
[2021-06-30] MEDS: Pantoprazole 40 MG/10 ML Syringe IVPUSH SCH (10:23)
[2021-06-30] MEDS: HYDROmorphone 1 MG/ML Syringe IVPUSH PRN ×3 (10:23→21:38)
[2021-06-30] MEDS: Enoxaparin 30 MG/0.3 ML Syringe SUBCUT SCH (10:23)
[2021-06-30] MEDS ORDERED: Ondansetron 4 MG/2 ML SDV IVPUSH PRN (11:18)
--- NOTE | 2021-06-30 11:46 | PCM.CONS ---
H&P History of Present Illness - General Date of Service: 06/30/21 Admit Problem/Dx: Admission Diagnosis/Problem Admission Diagnosis/Problem Small bowel obstruction Source of Information: Patient History Limitations: Reports: No Limitations - History of Present Illness Initial Comments - Free Text/Narative: Patient is a 71-year-old female who presented to the emergency room earlier this morning complaining of abdominal pain, nausea and vomiting. She states her symptoms started about 7 PM this past . She's had multiple episodes of nausea and vomiting. She has not had a bowel movement in the last 24 hours, although prior to that did have a large bowel movement and then liquid diarrhea. She denies any fever or chills. This morning she now states her pain is a 0. She continues to deny passage of flatus or bowel movement. Symptom Onset Date: 06/28/21 Symptom Onset Time: 19:00 Duration of Symptoms: Reports: Day(s):, Getting Worse, Recurring Location: Reports: Abdomen Quality: Reports: Pressure, Same as Previous Episode Severity: Moderate Improves with: Reports: Rest Worsens with: Reports: None Context: Reports: Sick Contact Associated Symptoms: Reports: Loss of Appetite, Nausea/Vomiting Abdomen Pain Score (Numeric/FACES): 9 - Related Data Allergies/Adverse Reactions: Allergies Allergy/AdvReac Type Severity Reaction Status Date / Time No Known Allergies Allergy Verified 06/30/21 03:59 Past Medical History HEENT History: Reports: None Cardiovascular History: Reports: Hypertension Respiratory History: Reports: Asthma Gastrointestinal History: Reports: Bowel Obstruction Genitourinary History: Reports: UTI, Recurrent, Other (See Below) Other Genitourinary History: Hematuria, Helder Bladder MEDIA CONSULTANT History: Reports: None Musculoskeletal History: Reports: Other (See Below) Neurological History: Reports: None Psychiatric History: Reports: Anxiety, Depression Endocrine/Metabolic History: Reports: None 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 Denies: Nephrectomy Other Female Surgeries/Procedures: bladder removal, helder-bladder, hysterectomy with bilateral salpingo-oophorectomy Musculoskeletal Surgical History: Reports: Other (See Below) Other Musculoskeletal Surgeries/Procedures:: 3 discs in neck ruptured; repaired Oncologic Surgical History: Reports: Other (See Below) Other Oncologic Surgeries/Procedures: bladder removal, helder bladder Social & Family History - Family History Family Medical History: No Pertinent Family History - Tobacco Use Tobacco Use Status *Q: Never Tobacco User Second Hand Smoke Exposure: No - Caffeine Use Caffeine Use: Reports: Soda - Recreational Drug Use Recreational Drug Use: No - Living Situation & Occupation Living situation: Reports: H&P Review of Systems - Review of Systems: Review Of Systems: See Below General: Reports: Decreased Appetite. Denies: Fever, Chills, Malaise, Weakness HEENT: Reports: No Symptoms Pulmonary: Denies: Shortness of Breath, Wheezing Cardiovascular: Denies: Chest Pain Gastrointestinal: Reports: Abdominal Pain, Anorexia, Decreased Appetite, Distension, Nausea, Vomiting. Denies: Black Stool, Bloody Stool, Constipation, Diarrhea, Difficulty Swallowing, Flatus, Hematemesis, Hematochezia, Melena Genitourinary: Reports: Other (Patient does intermittent self-catheterization). Denies: Dysuria, Frequency, Burning, Pain, Urgency Musculoskeletal: Reports: No Symptoms Skin: Denies: Cyanosis, Jaundice, Mottled, Pallor, Diaphoresis Psychiatric: Reports: No Symptoms Neurological: Reports: No Symptoms Hematologic/Lymphatic: Reports: No Symptoms Immunologic: Reports: No Symptoms Exam - Exam Exam: See Below - Vital Signs Vital Signs: Last Vital Signs Temp 97.2 F 06/30/21 06:58 Pulse 85 06/30/21 06:58 Resp 16 06/30/21 06:58 BP 149/77 H 06/30/21 08:49 Pulse Ox 96 06/30/21 06:58 Weight: 209 lb 11.2 oz - Exam Quality Assessment: No: Supplemental Oxygen, Central Line/PICC, Urinary Catheter General: Alert, Oriented, Cooperative, Mild Distress HEENT: Conjunctiva Clear, Nares Patent, Pupils Equal, Pupils Reactive. No: Scleral Icterus Neck: Supple, Trachea Midline Lungs: Clear to Auscultation, Normal Respiratory Effort. No: Wheezing Cardiovascular: Regular Rate, Regular Rhythm, Normal S1, Normal S2. No: Systolic Murmur, Diastolic Murmur GI/Abdominal Exam: Distended, Tender, Abnormal Bowel Sounds (Slightly high- pitched but no tinkles or rushes). No: Guarding, Rigid, Rebound, Hernia (Female) Exam: Normal External Exam Rectal (Female) Exam: Deferred Back Exam: Normal Inspection Extremities: Normal Inspection, Normal Range of Motion Peripheral Pulses: 4+: Posterior Tibial (L), Posterior Tibial (R), Dorsalis Pedis (L), Dorsalis Pedis (R) Skin: Warm, Dry, Intact Neurological: Cranial Nerves Intact Psychiatric: Alert, Normal Affect, Normal Mood - Patient Data Lab Results Last 24 hrs: Laboratory Results - last 24 hr 06/30/21 06/30/21 06/30/21 Range/Units 04:14 04:14 04:14 WBC 11.93 H (4.0-11.0) K/uL RBC 4.64 (4.30-5.90) M/uL Hgb 12.7 (12.0-16.0) g/dL Hct 40.0 (36.0-46.0) % MCV 86.2 (80.0-98.0) fL MCH 27.4 (27.0-32.0) pg MCHC 31.8 (31.0-37.0) g/dL RDW Std Deviation 46.6 (28.0-62.0) fl RDW Coeff of Soraida 15 (11.0-15.0) % Plt Count 394 (150-400) K/uL MPV 11.10 (7.40-12.00) fL Neut % (Auto) 85.5 H (48.0-80.0) % Lymph % (Auto) 6.0 L (16.0-40.0) % Sevier % (Auto) 8.0 (0.0-15.0) % Eos % (Auto) 0.4 (0.0-7.0) % Baso % (Auto) 0.1 (0.0-1.5) % Neut # (Auto) 10.2 H (1.4-5.7) K/uL Lymph # (Auto) 0.7 (0.6-2.4) K/uL Sevier # (Auto) 1.0 H (0.0-0.8) K/uL Eos # (Auto) 0.1 (0.0-0.7) K/uL Baso # (Auto) 0.0 (0.0-0.1) K/uL Nucleated RBC % 0.0 /100WBC Nucleated RBCs # 0 K/uL INR 1.00 Sodium 141 (136-145) mmol/L Potassium 4.2 (3.5-5.1) mmol/L Chloride 105 (98-107) mmol/L Carbon Dioxide 22.1 (21.0-32.0) mmol/L BUN 42 H (7.0-18.0) mg/dL Creatinine 2.9 H (0.6-1.0) mg/dL Est Cr Clr Drug Dosing 18.47 mL/min Estimated GFR (MDRD) 16.1 ml/min Glucose 162 H (74-106) mg/dL Lactic Acid (0.4-2.0) mmol/L Calcium 9.3 (8.5-10.1) mg/dL Magnesium 2.3 (1.8-2.4) mg/dL Total Bilirubin 0.4 (0.2-1.0) mg/dL AST 12 L (15-37) IU/L ALT 19 (14-63) IU/L Alkaline Phosphatase 104 (46-116) U/L Total Protein 7.8 (6.4-8.2) g/dL Albumin 3.5 (3.4-5.0) g/dL Globulin 4.3 H (2.6-4.0) g/dL Albumin/Globulin Ratio 0.8 L (0.9-1.6) Lipase 100 (73-393) U/L SARS-CoV-2 RNA (MAHI) (NEGATIVE) 06/30/21 06/30/21 Range/Units 04:14 04:14 WBC (4.0-11.0) K/uL RBC (4.30-5.90) M/uL Hgb (12.0-16.0) g/dL Hct (36.0-46.0) % MCV (80.0-98.0) fL MCH (27.0-32.0) pg MCHC (31.0-37.0) g/dL RDW Std Deviation (28.0-62.0) fl RDW Coeff of Soraida (11.0-15.0) % Plt Count (150-400) K/uL MPV (7.40-12.00) fL Neut % (Auto) (48.0-80.0) % Lymph % (Auto) (16.0-40.0) % Sevier % (Auto) (0.0-15.0) % Eos % (Auto) (0.0-7.0) % Baso % (Auto) (0.0-1.5) % Neut # (Auto) (1.4-5.7) K/uL Lymph # (Auto) (0.6-2.4) K/uL Sevier # (Auto) (0.0-0.8) K/uL Eos # (Auto) (0.0-0.7) K/uL Baso # (Auto) (0.0-0.1) K/uL Nucleated RBC % /100WBC Nucleated RBCs # K/uL INR Sodium (136-145) mmol/L Potassium (3.5-5.1) mmol/L Chloride (98-107) mmol/L Carbon Dioxide (21.0-32.0) mmol/L BUN (7.0-18.0) mg/dL Creatinine (0.6-1.0) mg/dL Est Cr Clr Drug Dosing mL/min Estimated GFR (MDRD) ml/min Glucose (74-106) mg/dL Lactic Acid 1.3 (0.4-2.0) mmol/L Calcium (8.5-10.1) mg/dL Magnesium (1.8-2.4) mg/dL Total Bilirubin (0.2-1.0) mg/dL AST (15-37) IU/L ALT (14-63) IU/L Alkaline Phosphatase (46-116) U/L Total Protein (6.4-8.2) g/dL Albumin (3.4-5.0) g/dL Globulin (2.6-4.0) g/dL Albumin/Globulin Ratio (0.9-1.6) Lipase (73-393) U/L SARS-CoV-2 RNA (MAHI) NEGATIVE (NEGATIVE) Result Diagrams: 06/30/21 04:14 06/30/21 04:14 Imaging Impressions Last 24 hrs: CT scan is personally been reviewed. There certainly does appear to be a high- grade small bowel obstruction. Sepsis Event Note - Evaluation Sepsis Screening Result: No Definite Risk - Focused Exam Vital Signs: Vital Signs Temp Pulse Resp BP Pulse Ox 06/30/21 08:49 149/77 H 06/30/21 06:58 97.2 F 85 16 194/102 H 96 06/30/21 06:22 72 18 165/67 H 95 06/30/21 05:34 75 18 194/81 H 94 L 06/30/21 03:45 96.8 F L 104 H 18 155/77 H 97 Consult PN Assessment/Plan Procedures: Procedures AGENT NOS ASSAY W/OPTIC (06/14/20) ASSAY OF CK (CPK) (04/10/14) ASSAY OF FERRITIN (10/06/17) ASSAY OF FOLIC ACID SERUM (10/06/17) ASSAY OF LACTIC ACID (06/14/20) ASSAY OF TROPONIN QUANT (04/10/14) ASSAY OF URINE CREATININE (06/14/20) ASSAY OF URINE SODIUM (06/14/20) AUTOMATED RETICULOCYTE COUNT (10/06/17) BLOOD CULTURE FOR BACTERIA (09/21/17) CHEST X-RAY 1 VIEW FRONTAL (04/10/14) CHEST X-RAY 2VW FRONTAL&LATL (04/06/15) CLOSTRIDIUM AG IA (06/14/20) COMPLETE CBC AUTOMATED (08/05/19) COMPLETE CBC W/AUTO DIFF WBC (06/14/20) COMPREHEN METABOLIC PANEL (06/14/20) CREATINE MB FRACTION (04/10/14) CRYPTOSPORIDIUM AG IA (06/14/20) CT ABD & PELVIS W/O CONTRAST (10/06/17) ELECTROCARDIOGRAM TRACING (06/14/20) EMERGENCY DEPT VISIT (06/14/20) EMERGENCY DEPT VISIT (09/20/19) EMERGENCY DEPT VISIT (10/06/17) EMERGENCY DEPT VISIT (09/25/17) EMERGENCY DEPT VISIT (09/21/17) EMERGENCY DEPT VISIT (04/10/14) EVALUATION OF WHEEZING (04/06/15) FECES CULTURE AEROBIC BACT (06/14/20) FIBRIN DEGRADATION QUANT (06/14/20) GIARDIA AG IA (06/14/20) HEMATOCRIT (10/06/17) HEMOGLOBIN (10/06/17) HYDRATE IV INFUSION ADD-ON (10/06/17) INSERT TEMP BLADDER CATH (06/14/20) IRON BINDING TEST (08/05/19) METABOLIC PANEL TOTAL CA (06/21/20) MICROBE SUSCEPTIBLE TIFFANIE (06/14/20) MRI NECK SPINE W/O DYE (04/22/14) NOS EACH ORGANISM AG IA (06/14/20) PROTHROMBIN TIME (09/21/17) PT EVAL LOW COMPLEX 20 MIN (09/12/17) ROUTINE VENIPUNCTURE (06/21/20) STOOL CULTR AEROBIC BACT EA (06/14/20) THER/PROPH/DIAG INJ IV PUSH (06/14/20) THER/PROPH/DIAG IV INF INIT (10/06/17) TX/PRO/DX INJ NEW DRUG ADDON (10/06/17) ULTRASOUND THERAPY (09/12/17) URINALYSIS AUTO W/SCOPE (06/14/20) URINE BACTERIA CULTURE (06/14/20) URINE CULTURE/COLONY COUNT (06/14/20) US EXAM ABDO BACK WALL COMP (06/14/20) VITAMIN B-12 (10/06/17) X-RAY EXAM ABDOMEN 1 VIEW (10/06/17) X-RAY EXAM ABDOMEN 2 VIEWS (10/06/17) X-RAY EXAM CHEST 1 VIEW (06/14/20) X-RAY EXAM KNEE 4 OR MORE (08/29/17) X-RAY EXAM OF FOOT (04/19/15) X-RAY EXAM OF WRIST (09/20/19) (1) Small bowel obstruction SNOMED Code(s): 605314054 Code(s): K56.609 - UNSP INTESTNL OBST, UNSP TO PARTIAL VERSUS COMPLETE OBST Priority: High Current Visit: Yes (2) Dehydration SNOMED Code(s): 45492744 Code(s): E86.0 - DEHYDRATION Priority: Medium Current Visit: No Problem List Initiated/Reviewed/Updated: Yes Plan: Recommend flat and upright over her abdomen on a daily basis for 3 days. Consider checking a CRP. At this point, I think we can hold off placing an NG tube. We'll also follow serial labs. Thank you for this consultation. I will continue to follow her through her hospital stay. We are going to try very conservative therapy for her given all of her abdominal surgery.
[2021-07-01] MEDS: HYDROmorphone 1 MG/ML Syringe IVPUSH PRN ×4 (02:47→20:54)
[2021-07-01] MEDS: Lactated Ringers 1,000 ML IV SCH ×3 (04:42→22:10)
[2021-07-01] MEDS: Enoxaparin 30 MG/0.3 ML Syringe SUBCUT SCH (08:13)
[2021-07-01] MEDS: Pantoprazole 40 MG/10 ML Syringe IVPUSH SCH (08:13)
[2021-07-01 08:38] LABS: CARBON DIOXIDE,CO2 24.4 mmol/L (21.0-32.0); POTASSIUM,K 4.3 mmol/L (3.5-5.1)
--- NOTE | 2021-07-01 09:54 | PCM.CONSN ---
- General Info Date of Service: 07/01/21 Admission Dx/Problem (Free Text): Small bowel obstruction Functional Status: Reports: Pain Controlled, Ambulating, Urinating. Denies: New Symptoms - Review of Systems General: Denies: Fever, Weakness, Fatigue, Malaise HEENT: Reports: No Symptoms Pulmonary: Denies: Shortness of Breath, Wheezing Cardiovascular: Denies: Chest Pain, Palpitations Gastrointestinal: Reports: Abdominal Pain, Flatus (Has started to pass gas). Denies: Diarrhea, Nausea, Vomiting Genitourinary: Denies: Dysuria, Frequency, Burning, Pain Musculoskeletal: Reports: No Symptoms Skin: Denies: Cyanosis, Jaundice, Mottled Neurological: Denies: Confusion, Dizziness Psychiatric: Denies: Confusion, Depression, Mood Lability - Patient Data Vitals - Most Recent: Last Vital Signs Temp 97.6 F 07/01/21 07:50 Pulse 58 L 07/01/21 07:50 Resp 18 07/01/21 07:50 BP 145/67 H 07/01/21 07:50 Pulse Ox 95 07/01/21 07:50 Weight - Most Recent: 209 lb 11.2 oz I&O - Last 24 Hours: Intake & Output 06/30/21 07/01/21 07/01/21 19:59 03:59 11:59 Output Total 300 700 Balance -300 -700 Lab Results Last 24 Hours: Laboratory Results - last 24 hr 07/01/21 07/01/21 Range/Units 06:59 06:59 WBC 5.12 (4.0-11.0) K/uL RBC 3.58 L (4.30-5.90) M/uL Hgb 9.7 L (12.0-16.0) g/dL Hct 31.5 L (36.0-46.0) % MCV 88.0 (80.0-98.0) fL MCH 27.1 (27.0-32.0) pg MCHC 30.8 L (31.0-37.0) g/dL RDW Std Deviation 48.5 (28.0-62.0) fl RDW Coeff of Soraida 15 (11.0-15.0) % Plt Count 241 (150-400) K/uL MPV 11.10 (7.40-12.00) fL Neut % (Auto) 62.0 (48.0-80.0) % Lymph % (Auto) 24.2 (16.0-40.0) % Dyer % (Auto) 10.7 (0.0-15.0) % Eos % (Auto) 2.9 (0.0-7.0) % Baso % (Auto) 0.2 (0.0-1.5) % Neut # (Auto) 3.2 (1.4-5.7) K/uL Lymph # (Auto) 1.2 (0.6-2.4) K/uL Dyer # (Auto) 0.6 (0.0-0.8) K/uL Eos # (Auto) 0.2 (0.0-0.7) K/uL Baso # (Auto) 0.0 (0.0-0.1) K/uL Nucleated RBC % 0.0 /100WBC Nucleated RBCs # 0 K/uL Sodium 140 (136-145) mmol/L Potassium 4.3 (3.5-5.1) mmol/L Chloride 107 (98-107) mmol/L Carbon Dioxide 24.4 (21.0-32.0) mmol/L BUN 37 H (7.0-18.0) mg/dL Creatinine 2.4 H (0.6-1.0) mg/dL Est Cr Clr Drug Dosing 22.32 mL/min Estimated GFR (MDRD) 20.0 ml/min Glucose 74 (74-106) mg/dL Calcium 7.8 L (8.5-10.1) mg/dL Siddhartha Results Last 24 Hours: Microbiology 06/30/21 04:38 Aerobic Blood Culture - Preliminary Blood - Venous NO GROWTH AFTER 1 DAY Anaerobic Blood Culture - Preliminary NO GROWTH AFTER 1 DAY 06/30/21 04:14 Aerobic Blood Culture - Preliminary Blood - Venous - Lab Draw NO GROWTH AFTER 1 DAY Anaerobic Blood Culture - Preliminary NO GROWTH AFTER 1 DAY Med Orders - Current: Current Medications Enoxaparin Sodium (Enoxaparin 30 Mg/0.3 Ml Syringe) 30 mg SUBCUT DAILY [facility] Last Admin: 07/01/21 08:13 Dose: 30 mg Documented by: Hydromorphone HCl (Hydromorphone 1 Mg/Ml Syringe) 1 mg IVPUSH Q4H PRN PRN Reason: Abdominal Pain Last Admin: 07/01/21 08:13 Dose: 1 mg Documented by: Dextrose/Lactated Ringer's (Dextrose 5%-Lactated Ringers) 1,000 mls @ 999 mls/hr IV ASDIRECTED [facility] Last Admin: 06/30/21 04:22 Dose: 999 mls/hr Documented by: Lactated Ringer's (Ringers, Lactated) 1,000 mls @ 999 mls/hr IV ASDIRECTED [facility] Last Admin: 06/30/21 04:20 Dose: 999 mls/hr Documented by: Lactated Ringer's (Ringers, Lactated) 1,000 mls @ 150 mls/hr IV ASDIRECTED [facility] Last Admin: 07/01/21 04:42 Dose: 150 mls/hr Documented by: Ondansetron HCl (Ondansetron 4 Mg/2 Ml Sdv) 4 mg IVPUSH Q4H PRN PRN Reason: Vomiting Last Admin: 06/30/21 15:34 Dose: 4 mg Documented by: Pantoprazole Sodium (Pantoprazole 40 Mg/10 Ml Syringe) 40 mg IVPUSH DAILY [facility] Last Admin: 07/01/21 08:13 Dose: 40 mg Documented by: Discontinued Medications Fentanyl (Fentanyl 50 Mcg/Ml Sdv) 50 mcg IVPUSH ONETIME ONE Stop: 06/30/21 04:09 Last Admin: 06/30/21 04:20 Dose: 50 mcg Documented by: Hydromorphone HCl (Hydromorphone 1 Mg/Ml Syringe) 1 mg IVPUSH ONETIME ONE Stop: 06/30/21 05:25 Last Admin: 06/30/21 05:29 Dose: 1 mg Documented by: - Exam General: Alert, Oriented, Cooperative, Mild Distress HEENT: Pupils Equal, Pupils Reactive. No: Scleral Icterus Neck: Supple Lungs: Clear to Auscultation, Normal Respiratory Effort. No: Wheezing Cardiovascular: Regular Rate, Regular Rhythm, No Murmurs GI/Abdominal Exam: Soft, Non-Tender, Distended (Less distended than yesterday). No: Guarding, Rigid, Rebound (Female) Exam: Deferred Back Exam: Normal Inspection Extremities: Normal Inspection, Normal Range of Motion Skin: Warm, Dry, Intact Neurological: No New Focal Deficit Psy/Mental Status: Alert, Normal Affect, Normal Mood Sepsis Event Note - Evaluation Sepsis Screening Result: No Definite Risk - Focused Exam Vital Signs: Vital Signs Temp Pulse Resp BP Pulse Ox 07/01/21 07:50 97.6 F 58 L 18 145/67 H 95 07/01/21 04:11 97.6 F 56 L 16 150/54 H 93 L 07/01/21 01:25 96.9 F 60 16 129/47 L 93 L Consult PN Assessment/Plan Procedures: Procedures AGENT NOS ASSAY W/OPTIC (06/14/20) ASSAY OF CK (CPK) (04/10/14) ASSAY OF FERRITIN (10/06/17) ASSAY OF FOLIC ACID SERUM (10/06/17) ASSAY OF LACTIC ACID (06/14/20) ASSAY OF TROPONIN QUANT (04/10/14) ASSAY OF URINE CREATININE (06/14/20) ASSAY OF URINE SODIUM (06/14/20) AUTOMATED RETICULOCYTE COUNT (10/06/17) BLOOD CULTURE FOR BACTERIA (09/21/17) CHEST X-RAY 1 VIEW FRONTAL (04/10/14) CHEST X-RAY 2VW FRONTAL&LATL (04/06/15) CLOSTRIDIUM AG IA (06/14/20) COMPLETE CBC AUTOMATED (08/05/19) COMPLETE CBC W/AUTO DIFF WBC (06/14/20) COMPREHEN METABOLIC PANEL (06/14/20) CREATINE MB FRACTION (04/10/14) CRYPTOSPORIDIUM AG IA (06/14/20) CT ABD & PELVIS W/O CONTRAST (10/06/17) ELECTROCARDIOGRAM TRACING (06/14/20) EMERGENCY DEPT VISIT (06/14/20) EMERGENCY DEPT VISIT (09/20/19) EMERGENCY DEPT VISIT (10/06/17) EMERGENCY DEPT VISIT (09/25/17) EMERGENCY DEPT VISIT (09/21/17) EMERGENCY DEPT VISIT (04/10/14) EVALUATION OF WHEEZING (04/06/15) FECES CULTURE AEROBIC BACT (06/14/20) FIBRIN DEGRADATION QUANT (06/14/20) GIARDIA AG IA (06/14/20) HEMATOCRIT (10/06/17) HEMOGLOBIN (10/06/17) HYDRATE IV INFUSION ADD-ON (10/06/17) INSERT TEMP BLADDER CATH (06/14/20) IRON BINDING TEST (08/05/19) METABOLIC PANEL TOTAL CA (06/21/20) MICROBE SUSCEPTIBLE SIDDHARTHA (06/14/20) MRI NECK SPINE W/O DYE (04/22/14) NOS EACH ORGANISM AG IA (06/14/20) PROTHROMBIN TIME (09/21/17) PT EVAL LOW COMPLEX 20 MIN (09/12/17) ROUTINE VENIPUNCTURE (06/21/20) STOOL CULTR AEROBIC BACT EA (06/14/20) THER/PROPH/DIAG INJ IV PUSH (06/14/20) THER/PROPH/DIAG IV INF INIT (10/06/17) TX/PRO/DX INJ NEW DRUG ADDON (10/06/17) ULTRASOUND THERAPY (09/12/17) URINALYSIS AUTO W/SCOPE (06/14/20) URINE BACTERIA CULTURE (06/14/20) URINE CULTURE/COLONY COUNT (06/14/20) US EXAM ABDO BACK WALL COMP (06/14/20) VITAMIN B-12 (10/06/17) X-RAY EXAM ABDOMEN 1 VIEW (10/06/17) X-RAY EXAM ABDOMEN 2 VIEWS (10/06/17) X-RAY EXAM CHEST 1 VIEW (06/14/20) X-RAY EXAM KNEE 4 OR MORE (08/29/17) X-RAY EXAM OF FOOT (04/19/15) X-RAY EXAM OF WRIST (09/20/19) (1) Small bowel obstruction SNOMED Code(s): 149944976 Code(s): K56.609 - UNSP INTESTNL OBST, UNSP TO PARTIAL VERSUS COMPLETE OBST Priority: High Current Visit: Yes (2) Dehydration SNOMED Code(s): 72831289 Code(s): E86.0 - DEHYDRATION Priority: Medium Current Visit: No Problem List Initiated/Reviewed/Updated: Yes My Orders Last 24 Hours: My Active Orders 07/01/21 09:50 Communication Order [RC] ROUTINE Plan: Patient states she has been up walking a great deal and is passing gas. She would like to have some sips of water, if possible. I think that would be okay, but very slowly.
--- NOTE | 2021-07-01 16:15 | PCM.PN ---
- General Info Date of Service: 07/01/21 Admission Dx/Problem (Free Text): Pt still hasn't had any bowel movements. Her abdomen is less distended. - Patient Data Vitals - Most Recent: Last Vital Signs Temp 97.8 F 07/01/21 13:43 Pulse 62 07/01/21 13:43 Resp 16 07/01/21 13:43 BP 157/69 H 07/01/21 13:43 Pulse Ox 95 07/01/21 13:43 Weight - Most Recent: 209 lb 11.2 oz I&O - Last 24 Hours: Intake & Output 07/01/21 07/01/21 07/01/21 06:59 14:59 22:59 Output Total 700 1250 Balance -700 -1250 Lab Results Last 24 Hours: Laboratory Results - last 24 hr 07/01/21 07/01/21 Range/Units 06:59 06:59 WBC 5.12 (4.0-11.0) K/uL RBC 3.58 L (4.30-5.90) M/uL Hgb 9.7 L (12.0-16.0) g/dL Hct 31.5 L (36.0-46.0) % MCV 88.0 (80.0-98.0) fL MCH 27.1 (27.0-32.0) pg MCHC 30.8 L (31.0-37.0) g/dL RDW Std Deviation 48.5 (28.0-62.0) fl RDW Coeff of Soraida 15 (11.0-15.0) % Plt Count 241 (150-400) K/uL MPV 11.10 (7.40-12.00) fL Neut % (Auto) 62.0 (48.0-80.0) % Lymph % (Auto) 24.2 (16.0-40.0) % Hale % (Auto) 10.7 (0.0-15.0) % Eos % (Auto) 2.9 (0.0-7.0) % Baso % (Auto) 0.2 (0.0-1.5) % Neut # (Auto) 3.2 (1.4-5.7) K/uL Lymph # (Auto) 1.2 (0.6-2.4) K/uL Hale # (Auto) 0.6 (0.0-0.8) K/uL Eos # (Auto) 0.2 (0.0-0.7) K/uL Baso # (Auto) 0.0 (0.0-0.1) K/uL Nucleated RBC % 0.0 /100WBC Nucleated RBCs # 0 K/uL Sodium 140 (136-145) mmol/L Potassium 4.3 (3.5-5.1) mmol/L Chloride 107 (98-107) mmol/L Carbon Dioxide 24.4 (21.0-32.0) mmol/L BUN 37 H (7.0-18.0) mg/dL Creatinine 2.4 H (0.6-1.0) mg/dL Est Cr Clr Drug Dosing 22.32 mL/min Estimated GFR (MDRD) 20.0 ml/min Glucose 74 (74-106) mg/dL Calcium 7.8 L (8.5-10.1) mg/dL Siddhartha Results Last 24 Hours: Microbiology 06/30/21 04:38 Aerobic Blood Culture - Preliminary Blood - Venous NO GROWTH AFTER 1 DAY Anaerobic Blood Culture - Preliminary NO GROWTH AFTER 1 DAY 06/30/21 04:14 Aerobic Blood Culture - Preliminary Blood - Venous - Lab Draw NO GROWTH AFTER 1 DAY Anaerobic Blood Culture - Preliminary NO GROWTH AFTER 1 DAY Med Orders - Current: Current Medications Bisacodyl (Bisacodyl 10 Mg Supp) 10 mg RECTAL DAILY PRN PRN Reason: Constipation Enoxaparin Sodium (Enoxaparin 30 Mg/0.3 Ml Syringe) 30 mg SUBCUT DAILY [facility] Last Admin: 07/01/21 08:13 Dose: 30 mg Documented by: Hydromorphone HCl (Hydromorphone 1 Mg/Ml Syringe) 1 mg IVPUSH Q4H PRN PRN Reason: Abdominal Pain Last Admin: 07/01/21 16:02 Dose: 1 mg Documented by: Dextrose/Lactated Ringer's (Dextrose 5%-Lactated Ringers) 1,000 mls @ 999 mls/hr IV ASDIRECTED [facility] Last Admin: 06/30/21 04:22 Dose: 999 mls/hr Documented by: Lactated Ringer's (Ringers, Lactated) 1,000 mls @ 999 mls/hr IV ASDIRECTED [facility] Last Admin: 06/30/21 04:20 Dose: 999 mls/hr Documented by: Lactated Ringer's (Ringers, Lactated) 1,000 mls @ 150 mls/hr IV ASDIRECTED [facility] Last Admin: 07/01/21 12:19 Dose: 150 mls/hr Documented by: Ondansetron HCl (Ondansetron 4 Mg/2 Ml Sdv) 4 mg IVPUSH Q4H PRN PRN Reason: Vomiting Last Admin: 06/30/21 15:34 Dose: 4 mg Documented by: Pantoprazole Sodium (Pantoprazole 40 Mg/10 Ml Syringe) 40 mg IVPUSH DAILY [facility] Last Admin: 07/01/21 08:13 Dose: 40 mg Documented by: Discontinued Medications Fentanyl (Fentanyl 50 Mcg/Ml Sdv) 50 mcg IVPUSH ONETIME ONE Stop: 06/30/21 04:09 Last Admin: 06/30/21 04:20 Dose: 50 mcg Documented by: Hydromorphone HCl (Hydromorphone 1 Mg/Ml Syringe) 1 mg IVPUSH ONETIME ONE Stop: 06/30/21 05:25 Last Admin: 06/30/21 05:29 Dose: 1 mg Documented by: - Exam Physical Findings Comments:: General: obese elderly female. Alert, Oriented, Cooperative, Mild Distress HEENT: NC, AT , PERRLA, EOMI. Lungs: Clear to Auscultation, Normal Respiratory Effort. No: Wheezing Cardiovascular: Regular Rate, Regular Rhythm, No Murmurs PA: obese , soft, Non-Tender, less distended than yesterday. hypoactive bowel sounds appreciated. No: Guarding Extremities: No clubbing, cyanosis or edema. Neuro: No focal deficits noted. Psych: Stable mood and affect. - Patient Data Lab Results Last 24 hrs: Laboratory Results - last 24 hr 07/01/21 07/01/21 Range/Units 06:59 06:59 WBC 5.12 (4.0-11.0) K/uL RBC 3.58 L (4.30-5.90) M/uL Hgb 9.7 L (12.0-16.0) g/dL Hct 31.5 L (36.0-46.0) % MCV 88.0 (80.0-98.0) fL MCH 27.1 (27.0-32.0) pg MCHC 30.8 L (31.0-37.0) g/dL RDW Std Deviation 48.5 (28.0-62.0) fl RDW Coeff of Soraida 15 (11.0-15.0) % Plt Count 241 (150-400) K/uL MPV 11.10 (7.40-12.00) fL Neut % (Auto) 62.0 (48.0-80.0) % Lymph % (Auto) 24.2 (16.0-40.0) % Hale % (Auto) 10.7 (0.0-15.0) % Eos % (Auto) 2.9 (0.0-7.0) % Baso % (Auto) 0.2 (0.0-1.5) % Neut # (Auto) 3.2 (1.4-5.7) K/uL Lymph # (Auto) 1.2 (0.6-2.4) K/uL [place] # (Auto) 0.6 (0.0-0.8) K/uL Eos # (Auto) 0.2 (0.0-0.7) K/uL Baso # (Auto) 0.0 (0.0-0.1) K/uL Nucleated RBC % 0.0 /100WBC Nucleated RBCs # 0 K/uL Sodium 140 (136-145) mmol/L Potassium 4.3 (3.5-5.1) mmol/L Chloride 107 (98-107) mmol/L Carbon Dioxide 24.4 (21.0-32.0) mmol/L BUN 37 H (7.0-18.0) mg/dL Creatinine 2.4 H (0.6-1.0) mg/dL Est Cr Clr Drug Dosing 22.32 mL/min Estimated GFR (MDRD) 20.0 ml/min Glucose 74 (74-106) mg/dL Calcium 7.8 L (8.5-10.1) mg/dL Result Diagrams: 07/01/21 06:59 07/01/21 06:59 Siddhartha Results Last 24 hrs: Microbiology 06/30/21 04:38 Aerobic Blood Culture - Preliminary Blood - Venous NO GROWTH AFTER 1 DAY Anaerobic Blood Culture - Preliminary NO GROWTH AFTER 1 DAY 06/30/21 04:14 Aerobic Blood Culture - Preliminary Blood - Venous - Lab Draw NO GROWTH AFTER 1 DAY Anaerobic Blood Culture - Preliminary NO GROWTH AFTER 1 DAY Sepsis Event Note - Evaluation Sepsis Screening Result: No Definite Risk - Focused Exam Vital Signs: Vital Signs Temp Pulse Resp BP Pulse Ox 07/01/21 13:43 97.8 F 62 16 157/69 H 95 07/01/21 07:50 97.6 F 58 L 18 145/67 H 95 07/01/21 04:11 97.6 F 56 L 16 150/54 H 93 L - Problem List & Annotations (1) Obesity (BMI 30-39.9) SNOMED Code(s): 275269011, 285558821 Code(s): E66.9 - OBESITY, UNSPECIFIED Status: Acute Current Visit: Yes (2) Small bowel obstruction SNOMED Code(s): 013421323 Code(s): K56.609 - UNSP INTESTNL OBST, UNSP TO PARTIAL VERSUS COMPLETE OBST Status: Acute Priority: High Current Visit: Yes (3) MARTHA (acute kidney injury) SNOMED Code(s): 28129593, 24309638 Code(s): N17.9 - ACUTE KIDNEY FAILURE, UNSPECIFIED Status: Acute Current Visit: No - Problem List Review Problem List Initiated/Reviewed/Updated: Yes - My Orders Last 24 Hours: My Active Orders 07/01/21 16:08 bisacodyL [Dulcolax] 10 mg RECTAL DAILY PRN - Assessment Assessment:: Small bowel obstruction- likely due to adhesions. Continue npo status General surgery is following along. pain and nausea control Acute kidney injury cr is trending down. will continue with hydration. Repeat bun/cr in am. DVT prophylaxis SQ lovenox Morbid obesity life style modification. Full code status.
[2021-07-01] MEDS: Bisacodyl 10 MG Supp RECTAL PRN ×2 (16:55→19:05)
[2021-07-02] MEDS: Lactated Ringers 1,000 ML IV SCH ×3 (03:51→16:53)
[2021-07-02] MEDS: HYDROmorphone 1 MG/ML Syringe IVPUSH PRN ×3 (03:51→22:28)
[2021-07-02 06:36] LABS: CARBON DIOXIDE,CO2 24.1 mmol/L (21.0-32.0)
[2021-07-02] MEDS: Pantoprazole 40 MG/10 ML Syringe IVPUSH SCH (08:13)
[2021-07-02] MEDS: Enoxaparin 30 MG/0.3 ML Syringe SUBCUT SCH (08:16)
--- NOTE | 2021-07-02 14:45 | PCM.PN ---
- General Info Date of Service: 07/02/21 Subjective Update: The patient is a 71-year-old female, on day 3 of service, with a significant past medical history of bladder cancer and multiple abdominal surgeries with removal of portions of her bladder requiring self-catheterization for urination purposes, and recurrent UTIs, who was admitted to the medical floor due to a small bowel obstruction. The patient's abdominal pain has progressively gotten to the point where it is almost subsided, currently is 1 out of 10 in intensity, located in the lower regions of the abdomen bilaterally, dull in nature, and nonradiating. She continues to use a heating pad and pillow to alleviate her pain. She is having regular bowel movements and had 4-5 in the past 24 hours, some hard in consistency and others loose. She has no issues with passing gas. She was transitioned to a clear liquid diet earlier today and was able to hold down the meals without any nausea or vomiting. We will transition her to a mechanical soft diet with hopes that she has no issues. The goal is to have this patient discharged tomorrow with close follow-up with her PCP. - Review of Systems General: Denies: Fever, Weakness, Fatigue HEENT: Denies: Headaches, Sore Throat Pulmonary: Denies: Shortness of Breath, Cough Cardiovascular: Denies: Chest Pain, Palpitations Gastrointestinal: Reports: Abdominal Pain. Denies: Constipation, Diarrhea, Nausea, Vomiting Genitourinary: Denies: Dysuria, Frequency, Burning - Patient Data Vitals - Most Recent: Last Vital Signs Temp 97 F 07/02/21 12:29 Pulse 78 07/02/21 12:29 Resp 17 07/02/21 12:29 BP 170/89 H 07/02/21 12:29 Pulse Ox 96 07/02/21 12:29 Weight - Most Recent: 209 lb 11.2 oz I&O - Last 24 Hours: Intake & Output 07/01/21 07/02/21 07/02/21 22:59 06:59 14:59 Intake Total 2400 Output Total 1250 600 Balance -1250 1800 Lab Results Last 24 Hours: Laboratory Results - last 24 hr 07/02/21 07/02/21 Range/Units 06:06 06:06 WBC 8.47 (4.0-11.0) K/uL RBC 3.99 L (4.30-5.90) M/uL Hgb 10.7 L (12.0-16.0) g/dL Hct 35.0 L (36.0-46.0) % MCV 87.7 (80.0-98.0) fL MCH 26.8 L (27.0-32.0) pg MCHC 30.6 L (31.0-37.0) g/dL RDW Std Deviation 47.3 (28.0-62.0) fl RDW Coeff of Soraida 15 (11.0-15.0) % Plt Count 301 (150-400) K/uL MPV 10.80 (7.40-12.00) fL Neut % (Auto) 74.3 (48.0-80.0) % Lymph % (Auto) 15.5 L (16.0-40.0) % [place] % (Auto) 8.7 (0.0-15.0) % Eos % (Auto) 1.4 (0.0-7.0) % Baso % (Auto) 0.1 (0.0-1.5) % Neut # (Auto) 6.3 H (1.4-5.7) K/uL Lymph # (Auto) 1.3 (0.6-2.4) K/uL [place] # (Auto) 0.7 (0.0-0.8) K/uL Eos # (Auto) 0.1 (0.0-0.7) K/uL Baso # (Auto) 0.0 (0.0-0.1) K/uL Nucleated RBC % 0.0 /100WBC Nucleated RBCs # 0 K/uL Sodium 138 (136-145) mmol/L Potassium 4.0 (3.5-5.1) mmol/L Chloride 103 (98-107) mmol/L Carbon Dioxide 24.1 (21.0-32.0) mmol/L BUN 33 H (7.0-18.0) mg/dL Creatinine 2.3 H (0.6-1.0) mg/dL Est Cr Clr Drug Dosing 23.29 mL/min Estimated GFR (MDRD) 21.0 ml/min Glucose 69 L (74-106) mg/dL Calcium 8.3 L (8.5-10.1) mg/dL Siddhartha Results Last 24 Hours: Microbiology 06/30/21 04:38 Aerobic Blood Culture - Preliminary Blood - Venous NO GROWTH AFTER 2 DAYS Anaerobic Blood Culture - Preliminary NO GROWTH AFTER 2 DAYS 06/30/21 04:14 Aerobic Blood Culture - Preliminary Blood - Venous - Lab Draw NO GROWTH AFTER 2 DAYS Anaerobic Blood Culture - Preliminary NO GROWTH AFTER 2 DAYS Med Orders - Current: Current Medications Bisacodyl (Bisacodyl 10 Mg Supp) 10 mg RECTAL DAILY PRN PRN Reason: Constipation Last Admin: 07/01/21 19:05 Dose: 10 mg Documented by: Enoxaparin Sodium (Enoxaparin 30 Mg/0.3 Ml Syringe) 30 mg SUBCUT DAILY [facility] Last Admin: 07/02/21 08:16 Dose: 30 mg Documented by: Hydromorphone HCl (Hydromorphone 1 Mg/Ml Syringe) 1 mg IVPUSH Q4H PRN PRN Reason: Abdominal Pain Last Admin: 07/02/21 09:29 Dose: 1 mg Documented by: Dextrose/Lactated Ringer's (Dextrose 5%-Lactated Ringers) 1,000 mls @ 999 mls/hr IV ASDIRECTED [facility] Last Admin: 06/30/21 04:22 Dose: 999 mls/hr Documented by: Lactated Ringer's (Ringers, Lactated) 1,000 mls @ 999 mls/hr IV ASDIRECTED [facility] Last Admin: 06/30/21 04:20 Dose: 999 mls/hr Documented by: Lactated Ringer's (Ringers, Lactated) 1,000 mls @ 150 mls/hr IV ASDIRECTED [facility] Last Admin: 07/02/21 10:13 Dose: 150 mls/hr Documented by: Ondansetron HCl (Ondansetron 4 Mg/2 Ml Sdv) 4 mg IVPUSH Q4H PRN PRN Reason: Vomiting Last Admin: 06/30/21 15:34 Dose: 4 mg Documented by: Pantoprazole Sodium (Pantoprazole 40 Mg/10 Ml Syringe) 40 mg IVPUSH DAILY [facility] Last Admin: 07/02/21 08:13 Dose: 40 mg Documented by: Discontinued Medications Fentanyl (Fentanyl 50 Mcg/Ml Sdv) 50 mcg IVPUSH ONETIME ONE Stop: 06/30/21 04:09 Last Admin: 06/30/21 04:20 Dose: 50 mcg Documented by: Hydromorphone HCl (Hydromorphone 1 Mg/Ml Syringe) 1 mg IVPUSH ONETIME ONE Stop: 06/30/21 05:25 Last Admin: 06/30/21 05:29 Dose: 1 mg Documented by: - Exam General: Alert, Oriented, Cooperative HEENT: Mucous Membr. Moist/[place] Neck: Trachea Midline Lungs: Clear to Auscultation, Normal Respiratory Effort Cardiovascular: Regular Rate, Regular Rhythm GI/Abdominal Exam: Normal Bowel Sounds, Tender - Patient Data Lab Results Last 24 hrs: Laboratory Results - last 24 hr 07/02/21 07/02/21 Range/Units 06:06 06:06 WBC 8.47 (4.0-11.0) K/uL RBC 3.99 L (4.30-5.90) M/uL Hgb 10.7 L (12.0-16.0) g/dL Hct 35.0 L (36.0-46.0) % MCV 87.7 (80.0-98.0) fL MCH 26.8 L (27.0-32.0) pg MCHC 30.6 L (31.0-37.0) g/dL RDW Std Deviation 47.3 (28.0-62.0) fl RDW Coeff of Soraida 15 (11.0-15.0) % Plt Count 301 (150-400) K/uL MPV 10.80 (7.40-12.00) fL Neut % (Auto) 74.3 (48.0-80.0) % Lymph % (Auto) 15.5 L (16.0-40.0) % [place] % (Auto) 8.7 (0.0-15.0) % Eos % (Auto) 1.4 (0.0-7.0) % Baso % (Auto) 0.1 (0.0-1.5) % Neut # (Auto) 6.3 H (1.4-5.7) K/uL Lymph # (Auto) 1.3 (0.6-2.4) K/uL [place] # (Auto) 0.7 (0.0-0.8) K/uL Eos # (Auto) 0.1 (0.0-0.7) K/uL Baso # (Auto) 0.0 (0.0-0.1) K/uL Nucleated RBC % 0.0 /100WBC Nucleated RBCs # 0 K/uL Sodium 138 (136-145) mmol/L Potassium 4.0 (3.5-5.1) mmol/L Chloride 103 (98-107) mmol/L Carbon Dioxide 24.1 (21.0-32.0) mmol/L BUN 33 H (7.0-18.0) mg/dL Creatinine 2.3 H (0.6-1.0) mg/dL Est Cr Clr Drug Dosing 23.29 mL/min Estimated GFR (MDRD) 21.0 ml/min Glucose 69 L (74-106) mg/dL Calcium 8.3 L (8.5-10.1) mg/dL Result Diagrams: 07/02/21 06:06 07/02/21 06:06 Siddhartha Results Last 24 hrs: Microbiology 06/30/21 04:38 Aerobic Blood Culture - Preliminary Blood - Venous NO GROWTH AFTER 2 DAYS Anaerobic Blood Culture - Preliminary NO GROWTH AFTER 2 DAYS 06/30/21 04:14 Aerobic Blood Culture - Preliminary Blood - Venous - Lab Draw NO GROWTH AFTER 2 DAYS Anaerobic Blood Culture - Preliminary NO GROWTH AFTER 2 DAYS Sepsis Event Note - Evaluation Sepsis Screening Result: No Definite Risk - Focused Exam Vital Signs: Vital Signs Temp Pulse Resp BP BP Pulse Ox 07/02/21 12:29 97 F 78 17 170/89 H 96 07/02/21 07:00 97.3 F 60 16 162/67 H 95 07/02/21 03:50 97.3 F 72 16 171/71 H 93 L - Problem List & Annotations (1) Small bowel obstruction SNOMED Code(s): 635304161 Code(s): K56.609 - UNSP INTESTNL OBST, UNSP TO PARTIAL VERSUS COMPLETE OBST Status: Acute Priority: High Current Visit: Yes (2) MARTHA (acute kidney injury) SNOMED Code(s): 92168116, 62533543 Code(s): N17.9 - ACUTE KIDNEY FAILURE, UNSPECIFIED Status: Acute Current Visit: No - Problem List Review Problem List Initiated/Reviewed/Updated: Yes - My Orders Last 24 Hours: My Active Orders 07/02/21 Dinner Mechanical Soft Diet [DIET] 07/03/21 05:11 BMP [BASIC METABOLIC PANEL,BMP] [CHEM] AM CBC WITH AUTO DIFF [HEME] AM - Assessment Assessment:: 1. Small bowel obstruction -The patient is currently on a mechanical soft diet and we hope she tolerates it well without nausea or vomiting -Heated pillows/heating pad is on her abdomen to alleviate her pain -For additional pain measures, the patient has Dilaudid on board -For vomiting, Zofran per IV route is on board -Monitor daily labs 2. Acute kidney injury -The patient has been encouraged to increase oral fluid intake slowly -We will continue to monitor MARTHA through daily CMP Disposition: Patient's anticipated discharge is tomorrow if she tolerates her diet well without nausea or vomiting and continues to pass flatus and defecate
[2021-07-03] MEDS: HYDROmorphone 1 MG/ML Syringe IVPUSH PRN (03:10)
[2021-07-03 07:37] LABS: CARBON DIOXIDE,CO2 23.4 mmol/L (21.0-32.0); POTASSIUM,K 3.9 mmol/L (3.5-5.1)
[2021-07-03] MEDS: Enoxaparin 30 MG/0.3 ML Syringe SUBCUT SCH (10:17)
--- NOTE | 2021-07-03 11:17 | PCM.DCSUM1 ---
Discharge Summary - Hospital Course Free Text/Narrative:: The patient is a 71-year-old female, on day 4 of service, with a significant past medical history of bladder cancer and multiple abdominal surgeries with removal of portions of her bladder requiring self-catheterization for urination purposes, and recurrent UTIs, who was admitted to the medical floor due to a small bowel obstruction. Throughout the patient's hospital stay she was treated with Dilaudid for pain which went from severe to mild over the 4-day course of her hospitalization. Her pain is currently 3-5 out of 10 and she will be sent home on a prescription of tramadol 50 mg to be used at bedtime when her pain is severe enough to keep her from sleep. Throughout her hospital stay she was also transitioned with respect to her diet, she was first n.p.o. and then transitioned to clear liquid diets and now can tolerate a mechanical soft diet. She feels she can eat normally and has no issues. She is passing flatus and having numerous bowel movements without issue. She is to follow-up with Dr. Horvath on 07/24. She has been educated on being compliant with her medication and taking them at scheduled times. She has also been counseled to return to the hospital if she has increasing abdominal pain, nausea, vomiting, hematemesis, or bloody stools. The patient was also followed by surgery during this hospitalization who recommended conservative measures. The patient is now stable and can be discharged safely. - Discharge Data Discharge Date: 07/03/21 Discharge Disposition: Home, Self-Care 01 Condition: Stable - Referral to Home Health Primary Care Physician: PCP None - Discharge Diagnosis/Problem(s) (1) Small bowel obstruction SNOMED Code(s): 879614144 ICD Code: K56.609 - UNSP INTESTNL OBST, UNSP TO PARTIAL VERSUS COMPLETE OBST Status: Acute Priority: High Current Visit: Yes (2) MARTHA (acute kidney injury) SNOMED Code(s): 49632442, 15783509 ICD Code: N17.9 - ACUTE KIDNEY FAILURE, UNSPECIFIED Status: Acute Current Visit: No - Patient Summary/Data Consults: Consultations 06/30/21 06:32 Consult to Physician [CONS] Stat - Patient Instructions Diet: Regular Diet as Tolerated Activity: As Tolerated Showering/Bathing: May Shower Other/Special Instructions: -Return to the hospital if you have increasing abdominal pain, nausea, vomiting, hematemesis, bloody stools. -Take your medication at scheduled times. -Follow-up with Dr. Horvath on 07/24 - Discharge Plan Prescriptions/Med Rec: traMADol [Ultram] 50 mg PO BEDTIME PRN #3 tab PRN Reason: Pain (Mild 1-3) Home Medications: Home Meds traMADol [Ultram] 50 mg PO BEDTIME PRN #3 tab 07/03/21 [Rx] Patient Handouts: Bowel Obstruction, [id number] Referrals: Misha Horvath MD [Resident] - 07/24/21 2:30 pm - Discharge Summary/Plan Comment DC Time >30 min.: Yes Total # of Minutes for Discharge Time: 35 minutes - Review of Systems General: Denies: Weakness, Fatigue HEENT: Denies: Headaches, Sore Throat Pulmonary: Denies: Shortness of Breath, Cough Cardiovascular: Denies: Chest Pain, Palpitations Gastrointestinal: Reports: Abdominal Pain. Denies: Constipation, Nausea, Vomiting Genitourinary: Denies: Dysuria - Patient Data Vitals - Most Recent: Last Vital Signs Temp 97.5 F 07/03/21 08:00 Pulse 75 07/03/21 08:00 Resp 18 07/03/21 08:00 BP 163/71 H 07/03/21 08:00 Pulse Ox 98 07/03/21 08:00 Weight - Most Recent: 209 lb 11.2 oz I&O - Last 24 hours: Intake & Output 07/02/21 07/03/21 07/03/21 22:59 06:59 14:59 Intake Total 985 Output Total 1200 Balance 985 -1200 Lab Results - Last 24 hrs: Laboratory Results - last 24 hr 07/03/21 07/03/21 Range/Units 06:38 06:38 WBC 8.16 (4.0-11.0) K/uL RBC 3.92 L (4.30-5.90) M/uL Hgb 10.6 L (12.0-16.0) g/dL Hct 34.1 L (36.0-46.0) % MCV 87.0 (80.0-98.0) fL MCH 27.0 (27.0-32.0) pg MCHC 31.1 (31.0-37.0) g/dL RDW Std Deviation 46.4 (28.0-62.0) fl RDW Coeff of Soraida 15 (11.0-15.0) % Plt Count 316 (150-400) K/uL MPV 11.30 (7.40-12.00) fL Neut % (Auto) 75.2 (48.0-80.0) % Lymph % (Auto) 15.3 L (16.0-40.0) % [place] % (Auto) 8.2 (0.0-15.0) % Eos % (Auto) 1.2 (0.0-7.0) % Baso % (Auto) 0.1 (0.0-1.5) % Neut # (Auto) 6.1 H (1.4-5.7) K/uL Lymph # (Auto) 1.3 (0.6-2.4) K/uL [place] # (Auto) 0.7 (0.0-0.8) K/uL Eos # (Auto) 0.1 (0.0-0.7) K/uL Baso # (Auto) 0.0 (0.0-0.1) K/uL Nucleated RBC % 0.0 /100WBC Nucleated RBCs # 0 K/uL Sodium 139 (136-145) mmol/L Potassium 3.9 (3.5-5.1) mmol/L Chloride 103 (98-107) mmol/L Carbon Dioxide 23.4 (21.0-32.0) mmol/L BUN 26 H (7.0-18.0) mg/dL Creatinine 2.1 H (0.6-1.0) mg/dL Est Cr Clr Drug Dosing 25.50 mL/min Estimated GFR (MDRD) 23.4 ml/min Glucose 97 (74-106) mg/dL Calcium 8.2 L (8.5-10.1) mg/dL TIFFANIE Results - Last 24 hrs: Microbiology 06/30/21 04:38 Aerobic Blood Culture - Preliminary Blood - Venous NO GROWTH AFTER 3 DAYS Anaerobic Blood Culture - Preliminary NO GROWTH AFTER 3 DAYS 06/30/21 04:14 Aerobic Blood Culture - Preliminary Blood - Venous - Lab Draw NO GROWTH AFTER 3 DAYS Anaerobic Blood Culture - Preliminary NO GROWTH AFTER 3 DAYS Med Orders - Current: Current Medications Bisacodyl (Bisacodyl 10 Mg Supp) 10 mg RECTAL DAILY PRN PRN Reason: Constipation Last Admin: 07/01/21 19:05 Dose: 10 mg Documented by: Enoxaparin Sodium (Enoxaparin 30 Mg/0.3 Ml Syringe) 30 mg SUBCUT DAILY [facility] Last Admin: 07/03/21 10:17 Dose: 30 mg Documented by: Hydromorphone HCl (Hydromorphone 1 Mg/Ml Syringe) 1 mg IVPUSH Q4H PRN PRN Reason: Abdominal Pain Last Admin: 07/03/21 03:10 Dose: 1 mg Documented by: Dextrose/Lactated Ringer's (Dextrose 5%-Lactated Ringers) 1,000 mls @ 999 mls/hr IV ASDIRECTED [facility] Last Admin: 06/30/21 04:22 Dose: 999 mls/hr Documented by: Lactated Ringer's (Ringers, Lactated) 1,000 mls @ 999 mls/hr IV ASDIRECTED [facility] Last Admin: 06/30/21 04:20 Dose: 999 mls/hr Documented by: Lactated Ringer's (Ringers, Lactated) 1,000 mls @ 150 mls/hr IV ASDIRECTED [facility] Last Admin: 07/02/21 16:53 Dose: 150 mls/hr Documented by: Ondansetron HCl (Ondansetron 4 Mg/2 Ml Sdv) 4 mg IVPUSH Q4H PRN PRN Reason: Vomiting Last Admin: 06/30/21 15:34 Dose: 4 mg Documented by: Pantoprazole Sodium (Pantoprazole 40 Mg/10 Ml Syringe) 40 mg IVPUSH DAILY [facility] Last Admin: 07/02/21 08:13 Dose: 40 mg Documented by: Discontinued Medications Fentanyl (Fentanyl 50 Mcg/Ml Sdv) 50 mcg IVPUSH ONETIME ONE Stop: 06/30/21 04:09 Last Admin: 06/30/21 04:20 Dose: 50 mcg Documented by: Hydromorphone HCl (Hydromorphone 1 Mg/Ml Syringe) 1 mg IVPUSH ONETIME ONE Stop: 06/30/21 05:25 Last Admin: 06/30/21 05:29 Dose: 1 mg Documented by: - Exam General: Reports: Alert, Oriented, Cooperative HEENT: Reports: Mucous Membr. Moist/[place] Neck: Reports: Trachea Midline Lungs: Reports: Clear to Auscultation, Normal Respiratory Effort Cardiovascular: Reports: Regular Rate, Regular Rhythm GI/Abdominal Exam: Normal Bowel Sounds, Tender
[2021-07-03] MEDS ORDERED: Pantoprazole 40 MG Tab.CR PO ONE (11:45)
[2021-07-03] MEDS: Pantoprazole 40 MG/10 ML Syringe IVPUSH SCH (11:51)
== END 2021-07-03 12:35 | disposition home or self-care (01) ==
LOC: MW.ED 03:29 → MW.MS 06:26
PROVIDERS: ADMIT Hospitalist; ATTEND Hospitalist
DX: K56.609 Unspecified intestinal obstruction, unspecified as to partial versus complete obstruction (principal); N39.0 Urinary tract infection, site not specified; J45.909 Unspecified asthma, uncomplicated; F32.A Depression, unspecified; N17.9 Acute kidney failure, unspecified; E66.01 Morbid (severe) obesity due to excess calories; E86.0 Dehydration; Z79.899 Other long term (current) drug therapy; Z98.890 Other specified postprocedural states; Z20.822 Contact with and (suspected) exposure to COVID-19
CPT/HCPCS: 36415; 74176; 80048; 80053; 83605; 83690; 83735; 85025; 85610; 87040; 96372; 96374; 96375; 96376; 99285; A9270; C9113; G0378; J1170; J1650; J2405; J3010; J7120; J7121; U0002